=== PATIENT | female | born 1945 | race Caucasian/White ===

== ENCOUNTER 2019-09-27 10:33 | Outpatient (RCR) | payer MEDICARE, SELFPAY ==
[2019-09-27 14:01] LABS: Blood Urea Nitrogen 20 mg/dL (7-17); Calcium 9.5 mg/dL (8.4-10.2); Carbon Dioxide 28 mmol/L (22-30); Chloride 99 mmol/L (98-107); Estimated Glomerular Filt Rate > 60; Glucose 84 mg/dL (65-105); Potassium 4.1 mmol/L (3.4-5.0); Sodium 137 mmol/L (137-145)
[2019-09-27 14:15] LABS: Parathyroid Intact 55.1 pg/mL (7.5-53.5)
== END 2019-12-26 23:59 | disposition home or self-care (01) ==
LOC: ANHWCLAB 10:33
PROVIDERS: PCP Internal Medicine; Visit Provider Internal Medicine Endocrinology, Diabetes & Metabolism
DX: M81.0 Age-related osteoporosis without current pathological fracture (principal)
CPT/HCPCS: 36415; 80048; 83970

== ENCOUNTER 2019-12-05 17:10 | Emergency (ER) | payer MEDICARE, SELFPAY ==
--- NOTE | ~2019-12-05 | XR_ITS ---
XR forearm RT 2V 12/05/2019 17:40 Indication: Right arm pain after fall Procedure: 2 views right forearm Comparison: No prior studies for comparison. Findings: There are degenerative changes of the elbow and radiocarpal joint. There is chondrocalcinos is distal to the ulna. There are moderate degenerative changes of the first CMC joint. No acute fract ure or traumatic malalignment. Impression: 1: No acute fracture. 2: Polyarticular osteoarthritis. Reviewed, dictated and finalized at location A. ESSORI PARAPROFESSIONAL Impression: 1: No acute fracture. 2: Polyarticular osteoarthritis.
--- NOTE | ~2019-12-05 | XR_ITS ---
XR finger 5th RT min 2V 12/05/2019 17:40 Indication: Right fifth finger pain after fall Procedure: 4 views right fifth finger Comparison: 08/02/2012 Findings: No acute fracture or traumatic malalignment. No focal soft tissue abnormality. No radiopaqu e foreign bodies. There is a healed fifth metacarpal fracture. Impression: 1: No acute fracture. Reviewed, dictated and finalized at location A. THETIC DENTIST Impression: 1: No acute fracture.
--- NOTE | 2019-12-05 17:17 | ED.GENADULT ---
HPI - General Adult General Chief complaint: Extremity Injury, Upper Stated complaint: FALL/R ELBOW/WRIST/FINGER INJRUY Time Seen by Provider: 12/05/19 17:17 Source: patient and RN notes reviewed Mode of arrival: ambulatory Limitations: no limitations History of Present Illness HPI narrative: Pt is a 74 y/o female who presents to the with c/o 8/10 rt elbow pain, 5/10 rt wrist pain, and 6/10 rt 5th finger pain. Pt states that she fell on Monday (4 days ago). She also notes that she fell about 2 weeks ago. Pt is rt-handed. She tried to see her PCP, [Dr. Watson] . . She reports LLE bruising from her fall. Pt has to prop up her arm with a pillow at night because of the pain. She has a H/O osteoporosis. Pt denies LOC or any other injuries and she is not on any blood thinners. Patient advised regardless of x-ray results to get large, wrist splint MD complaint: Arm pain Onset (ago): day(s) (4) Location: right and upper extremity Severity scale (1-10): 8 Associated symptoms: denies other symptoms Related Data Home Medications Medication Instructions Recorded Confirmed aspirin 81 mg tablet,delayed 81 mg PO DAILY 09/23/19 12/05/19 release buspirone 10 mg tablet 10 mg PO BID 09/23/19 12/05/19 duloxetine 60 mg capsule,delayed 120 mg PO DAILY cap 09/23/19 12/05/19 release amlodipine 10 mg PO DAILY 12/05/19 12/05/19 Allergies Allergy/AdvReac Type Severity Reaction Status Date / Time codeine Allergy Unknown Hallucinati Verified 12/05/19 17:20 ng Review of Systems Review of Systems: Narrative: General/Constitutional: No weight loss,fever Eyes: N0: Redness,discharge Ears/Nose/Throat: No: Epistaxis,ear discharge Respiratory: Denies: Hemoptysis Gastrointestinal: No Vomiting, Bleeding-rectal Skin: No Lumps, eruption Neurologic: No Focal Weakness,Sz Hematologic: Denies: Petechiae/Purpura Psychiatric: No: Suicida ideationl All Other Systems: Reviewed and Negative [facility] Family History Family History (Updated 11/17/17 @ 11:24 by DOCTOR UNKNOWN) Sibling Diabetes mellitus Family history of mental disorder Family history of malignant neoplasm Grandparent Family history of osteoporosis Depression Family history of arthritis Family history of migraine headaches Father Family history of suicide Family history of alcoholism Mother Family history of migraine headaches, Onset Age: 34 Social History Social History Smoking status: Never smoker Second hand tobacco smoke exposure: No Alcohol intake: never Comments At time of signature, agree with nursing past medical, surgical, social and family history. There is no relevant family history pertinent to the presenting complaint Exam Narrative: Exam Narrative: General Appearance: Well appearing, Well nourished, No distress EYE: PERRLA, EOMI, Conjunctiva clear Ears: External ear normal, Auditory canal normal Nose: Normal nose, Nares clear Mouth/Throat: Normal appearing, Normal lips Neck: Supple Respiratory: Airway patent, No respiratory distress MS R forearm: Normal strength (mostly intact, limited flexion/extension by pain), Tenderness - FCCU, 5th MCPJ with mild decreased ROM, no swelling ; Other no anterior drawer, no collateral laxity, no scaphoid tenderness Skin: Warm, Dry, Normal color Neurological: A&O x3, Speech clear, CN II-XII intact Psychiatric: Normal mood, Normal affect Course Vital Signs Vital signs: Vital Signs Temperature 97.9 F 12/05/19 17:24 Pulse Rate 81 12/05/19 17:24 Respiratory Rate 16 12/05/19 17:24 Blood Pressure 175/94 H 12/05/19 17:24 Pulse Oximetry 99 12/05/19 17:24 Temperature 97.9 F 12/05/19 17:24 Pulse Rate 81 12/05/19 17:24 Respiratory Rate 16 12/05/19 17:24 Blood Pressure 175/94 H 12/05/19 17:24 Pulse Oximetry 99 12/05/19 17:24 Medical Decision Making Vital Signs Vital Signs: Vital Signs Temperature 97.9 F 12/05/19 17:24 Pulse Rate
[2019-12-05 17:24] VITALS: BP 175/94; PULSE 81; RESP 16; TEMP 36.6; O2SAT 99
== END 2019-12-05 18:16 | disposition home or self-care (01) ==
PROVIDERS: Emergency Provider Emergency Medicine; PCP Internal Medicine
DX: S69.91XA Unspecified injury of right wrist, hand and finger(s), initial encounter (principal); W19.XXXA Unspecified fall, initial encounter
CPT/HCPCS: 73090; 73140; 99213; G0463

== ENCOUNTER 2020-03-03 09:24 | Outpatient (CLI) | payer MEDICARE, SELFPAY ==
--- NOTE | ~2020-03-03 | NM_ITS ---
EXAMINATION: NM parathyroid w imaging DATE: 03/03/2020 13:37 INDICATION: Hyperparathyroidism, unspecified. TECHNIQUE: 19.4 mCi Tc99m sestamibi was administered intravenously. Anterior images of the neck were obtained immediately and at 2 hours. SPECT images of the neck were obtained. COMPARISON: None. FINDINGS: There is no focus of persistent activity in the area of the thyroid or mediastinum to sugge st parathyroid adenoma. IMPRESSION: 1. No evidence of a parathyroid adenoma. Reviewed, dictated and finalized at location A.
== END 2020-03-03 09:25 | disposition home or self-care (01) ==
LOC: ANHIMG 09:27
PROVIDERS: PCP Internal Medicine; Visit Provider Internal Medicine Endocrinology, Diabetes & Metabolism
DX: E21.3 Hyperparathyroidism, unspecified (principal)
CPT/HCPCS: 78070; A9500

== ENCOUNTER 2020-03-13 13:36 | Outpatient (CLI) | payer MEDICARE, SELFPAY ==
[2020-03-13 14:33] LABS: Albumin Level 4.6 g/dL (3.5-5.1); Blood Urea Nitrogen 18 mg/dL (7-17); Calcium 9.9 mg/dL (8.4-10.2); Carbon Dioxide 29 mmol/L (22-30); Chloride 101 mmol/L (98-107); Estimated Glomerular Filt Rate > 60; Glucose 87 mg/dL (65-105); Phosphorus 4.2 mg/dL (2.5-4.5); Potassium 3.7 mmol/L (3.4-5.0); Sodium 138 mmol/L (137-145)
[2020-03-13 15:06] LABS: Total Volume 24 Hour Urine 1400 ml
[2020-03-13 15:27] LABS: Creatinine 24 Hour Urine 0.9 gm/24 (0.8-1.8); Creatinine Urine 67.3 mg/dL
[2020-03-13 16:03] LABS: Vitamin D 25 Hydroxy 35.2 ng/mL
[2020-03-17 20:59] LABS: Collagen Type I C-Telopeptide 151 pg/mL (***); Osteocalcin 17 ng/mL (8-32)
== END 2020-03-13 13:37 | disposition home or self-care (01) ==
PROVIDERS: PCP Internal Medicine; Visit Provider Internal Medicine Endocrinology, Diabetes & Metabolism
DX: E21.3 Hyperparathyroidism, unspecified (principal); M81.0 Age-related osteoporosis without current pathological fracture
CPT/HCPCS: 36415; 80069; 81050; 82306; 82340; 82523; 82570; 83937; 83970

== ENCOUNTER 2020-12-18 07:00 | Outpatient (CLI) | payer MEDICARE, SELFPAY ==
--- NOTE | ~2020-12-18 | MR_ITS ---
EXAMINATION: MR ankle LT wo con DATE: 12/18/2020 07:54 INDICATION: Anterior tibial syndrome. Synovitis. TECHNIQUE: Magnetic resonance imaging (MRI) of the left ankle was performed without intravenous contr ast. Sequences included sagittal, coronal, and axial proton-density weighted fast spin echo without a nd with fat saturation. COMPARISON: None. FINDINGS: Medial ankle ligaments: Deep and superficial deltoid ligaments as well as the spring ligament are normal. Lateral ankle ligaments: The anterior and posterior inferior tibiofibular ligaments are normal. The calcaneofibular and copy and print associate ior talofibular ligaments are normal. The anterior talofibular ligament appears attenuated without moon rrounding edema suggesting sequela of chronic sprain. Tendons: Minimal thickening and increased signal of the distal Achilles tendon consistent with mild tendinosis without discrete tear or peritendinitis. The peroneus longus tendon is normal. Tendinopathy and long itudinal split tearing of the peroneus brevis tendon with the peroneus longus tendon situated between the separate medial and lateral bundles of the peroneus brevis tendon at the level of the tip of the lateral malleolus. The extensor hallucis longus and extensor digitorum longus tendons are normal. Mo derate tendinopathy of the tibialis anterior tendon with full-thickness tear occurring approximately 2 cm from the insertion at the first metatarsal base. There is retraction of the proximal tendon with approximately 4 cm separation of the frayed proximal and distal tear margins and with small amount o f complex fluid consistent with hematoma within the intervening tendon sheath. The tibialis posterior , flexor digitorum longus and flexor hallucis longus tendons are normal. Plantar fascia: There is thickening and mild increased signal consistent with enthesopathy of the proximal plantar ap oneurosis with moderate sized enthesophyte at its calcaneal insertion. No discrete tear of the planta r aponeurosis or significant surrounding edema to suggest acute plantar fasciitis. Bones/other: Bone alignment is normal. Normal bone marrow signal throughout with no reactive edema, fracture or pa thologic marrow replacing process. Fluid: Physiologic amount fluid in the joint spaces. Mild subcutaneous edema anterior to the ankle. IMPRESSION: 1. Full-thickness tear and possible retraction of the distal left anterior tibial tendon. 2. Tendinopathy and longitudinal split tearing of the peroneus brevis tendon. 3. Moderate plantar enthesopathy without discrete tear or acute fasciitis. 4. Minimal distal Achilles tendinosis. Reviewed, dictated and finalized at location A. RHOUSE ELECTRICIAN IMPRESSION: 1. Full-thickness tear and possible retraction of the distal left anterior tibi al tendon. 2. Tendinopathy and longitudinal split tearing of the peroneus brevis tendon. 3. Moderate plantar enthesopathy without discrete tear or acute fasciitis. 4. Minimal distal Achilles tendinosis.
== END 2020-12-18 07:01 | disposition home or self-care (01) ==
PROVIDERS: Visit Provider Podiatrist Foot & Ankle Surgery
DX: M65.872 Other synovitis and tenosynovitis, left ankle and foot (principal); M77.32 Calcaneal spur, left foot
CPT/HCPCS: 73721

== ENCOUNTER 2021-03-16 09:50 | Outpatient (CLI) | payer MEDICARE, SELFPAY ==
[2021-03-16 10:26] LABS: Basophils Percent Auto 0.6 % (0.2-1.2); Eosinophils Absolute Auto 0.3 K/mm3 (0-0.3); Eosinophils Percent Auto 3.9 % (0-4.4); Hematocrit 45.1 % (37.0-47.0); Hemoglobin 14.5 g/dL (12.0-15.0); Immature Granulocyte Absolute 0.01 K/mm3 (0.00-0.031); Immature Granulocyte Percent A 0.2 % (0-0.5); Lymphocytes Absolute Auto 1.14 K/mm3 (0.9-3.2); Lymphocytes Percent Auto 17.9 % (18.3-44.2); Mean Corpuscular HGB Conc 32.2 g/dl (32-36); Mean Corpuscular Hemoglobin 28.2 pg (26-34); Mean Corpuscular Volume 87.6 fl (80-100); Mean Platelet Volume 10.6 fl (7.4-10.4); Monocytes Absolute Auto 0.6 K/mm3 (0.1-0.6); Monocytes Percent Auto 9.4 % (2.6-8.5); Neutrophils Absolute Auto 4.3 K/mm3 (1.3-6.7); Platelet Count Result 247 k/mm3 (150-375); Red Blood Count 5.15 M/mm3 (4.2-5.4); Red Cell Distribution Width 13.2 % (11.5-14.5); White Blood Count 6.4 K/mm3 (4.5-10.0)
[2021-03-16 10:39] LABS: Alanine Aminotransferase 12 U/L (4-35); Albumin Level 4.3 g/dL (3.5-5.1); Alkaline Phosphatase 77 U/L (38-126); Anion Gap 2 mmol/L (8-16); Aspartate Amino Transferase 20 U/L (14-36); Bilirubin,Total 0.5 mg/dL (0.2-1.3); Blood Urea Nitrogen 22 mg/dL (7-17); Calcium 9.1 mg/dL (8.4-10.2); Carbon Dioxide 36 mmol/L (22-30); Chloride 102 mmol/L (98-107); Cholesterol 163 mg/dL (0-200); Estimated Glomerular Filt Rate > 60; Glucose 97 mg/dL (65-105); HDL Direct 70 mg/dL; Potassium 3.8 mmol/L (3.4-5.0); Sodium 140 mmol/L (137-145); Triglycerides 86 mg/dL (<150)
[2021-03-16 10:50] LABS: LDL Cholesterol Direct 70 mg/dL
[2021-03-16 11:07] LABS: Creatinine Urine 104.1 mg/dL
[2021-03-16 11:12] LABS: MALB Creatinine Ratio 61.8 mg/g (0-30); Microalbumin Urine Random 64.3 mg/L (0-16.7)
[2021-03-16 11:24] LABS: Vitamin D 25 Hydroxy 38.1 ng/mL
[2021-03-16 12:03] LABS: Folic Acid > 20.0 ng/mL (2.76->20)
== END 2021-03-16 09:51 | disposition home or self-care (01) ==
PROVIDERS: PCP Internal Medicine; Referring Provider Internal Medicine Endocrinology, Diabetes & Metabolism; Visit Provider Internal Medicine
DX: E55.9 Vitamin D deficiency, unspecified (principal); F33.40 Major depressive disorder, recurrent, in remission, unspecified; I12.9 Hypertensive chronic kidney disease with stage 1 through stage 4 chronic kidney disease, or unspecified chronic kidney disease; K21.9 Gastro-esophageal reflux disease without esophagitis; M81.0 Age-related osteoporosis without current pathological fracture; N18.2 Chronic kidney disease, stage 2 (mild); E78.2 Mixed hyperlipidemia; E21.3 Hyperparathyroidism, unspecified
CPT/HCPCS: 36415; 80053; 80061; 82043; 82306; 82607; 82746; 84443; 85025

== ENCOUNTER 2021-06-08 09:00 | Outpatient (CLI) | payer MEDICARE, SELFPAY ==
[2021-06-08 09:36] LABS: Alanine Aminotransferase 16 U/L (4-35); Albumin Level 4.1 g/dL (3.5-5.1); Alkaline Phosphatase 83 U/L (38-126); Anion Gap 9 mmol/L (8-16); Aspartate Amino Transferase 19 U/L (14-36); Bilirubin,Total 0.4 mg/dL (0.2-1.3); Blood Urea Nitrogen 25 mg/dL (7-17); Calcium 9.1 mg/dL (8.4-10.2); Carbon Dioxide 30 mmol/L (22-30); Chloride 103 mmol/L (98-107); Estimated Glomerular Filt Rate > 60; Glucose 119 mg/dL (65-110); Potassium 3.5 mmol/L (3.4-5.0); Sodium 142 mmol/L (137-145)
== END 2021-06-08 09:01 | disposition home or self-care (01) ==
PROVIDERS: PCP Internal Medicine; Visit Provider Internal Medicine
DX: I10 Essential (primary) hypertension (principal)
CPT/HCPCS: 36415; 80053

== ENCOUNTER 2021-08-27 12:02 | Emergency (ER) | payer MEDICARE, SELFPAY ==
--- NOTE | 2021-08-27 12:08 | ED.EAR ---
HPI - Ear Problem General Chief complaint: Ear Stated complaint: EARACHE Time Seen by Provider: 08/27/21 12:08 Source: patient Mode of arrival: ambulatory Limitations: no limitations History of Present Illness HPI Narrative: Yoli Valdez is a 76 yo female with a PMH of hypertension, depression, GERD, who comes to [facility] with complaints of right ear pain for the last few weeks. She states that she went to an ENT who removed some wax but she will not go back to him because she did not like him. Complaining of some dizziness and also difficulty hearing out of the ear Related Data Home Medications Medication Instructions Recorded Confirmed aspirin 81 mg tablet,delayed 81 mg PO DAILY 09/23/19 08/27/21 release bupropion HCl 100 mg tablet,12 hr 100 mg PO DAILY 03/10/20 08/27/21 sustained-release buspirone 10 mg tablet 10 mg PO BID tablet 03/16/21 08/27/21 duloxetine 60 mg capsule,delayed 120 mg PO DAILY cap 03/16/21 08/27/21 release Allergies Allergy/AdvReac Type Severity Reaction Status Date / Time codeine Allergy Unknown Hallucinati Verified 08/27/21 12:18 ng Review of Systems Review of Systems: CONSTITUTIONAL: Denies fever, chills, sweats. EYES: Denies visual changes, redness, discharge. ENT: Denies rhinorrhea, congestion, sore throat, right otalgia. CARDIOVASCULAR: Denies chest pain, palpitations, edema. RESPIRATORY: Denies dyspnea, wheezing, cough GASTROINTESTINAL: Denies abdominal pain, nausea, vomiting, diarrhea. GENITOURINARY: Denies dysuria, hematuria, abnormal discharge SKIN: Denies rash or itching. NEUROLOGIC: Denies numbness, or focal weakness. PSYCHIATRIC: Denies anxiety or depression. [facility] Past Medical History Medical History Anxiety Arthritis Cholecystectomy planned Hepatitis Liver disease Migraines Osteoporosis Psychiatric care Surgical History Surgical History H/O: hysterectomy History of knee replacement Family History Family History Sibling Diabetes mellitus Family history of mental disorder Family history of malignant neoplasm Grandparent Family history of osteoporosis Depression Family history of arthritis Family history of migraine headaches Father Family history of suicide Family history of alcoholism Mother Family history of migraine headaches, Onset Age: 34 Social History Social History Second hand tobacco smoke exposure: No Alcohol intake: never Substance use: never Comments At time of signature, I agree with nursing past medical, surgical, social and family history. There is no relevant family history pertinent to the presenting complaint. Exam Narrative: GENERAL: This is a well-nourished, well-developed patient, in mild distress. HEAD: normocephalic, atraumatic. EYES: Sclera clear/white. Vision is grossly intact. EARS: External ears normal, auditory canals clear on left, erythema with swelling on right and with drainage, TMs normal without perforation. Hearing grossly intact. NOSE: External nose normal without nasal discharge, nares without redness, no rhinorrhea. THROAT: Mucous membranes moist, NECK: Neck supple, CARDIOVASCULAR: Regular rate and rhythm without murmurs, gallops, or rubs. RESPIRATORY: Clear to auscultation. Breath sounds equal bilaterally. No wheezes, rales, or rhonchi. GASTROINTESTINAL: Abdomen soft, , SKIN: warm, intact with no suspicious lesions or rash, good texture and turgor. NEURO: awake, alert, and oriented to person, place and time. There were no obvious focal neurologic abnormalities. Steady gait EXTREMITIES: Normal range of motion. BACK: Nontender without deformity Course Course Emergency Course: Patient comes with right ear pain that has been present for the last
[2021-08-27 12:10] VITALS: BP 112/57; PULSE 61; RESP 16; TEMP 36.3; O2SAT 99
== END 2021-08-27 12:25 | disposition home or self-care (01) ==
PROVIDERS: Emergency Provider Nurse Practitioner; PCP Internal Medicine
DX: H66.001 Acute suppurative otitis media without spontaneous rupture of ear drum, right ear (principal); M19.90 Unspecified osteoarthritis, unspecified site; M81.0 Age-related osteoporosis without current pathological fracture; F41.9 Anxiety disorder, unspecified; Z96.659 Presence of unspecified artificial knee joint; K21.9 Gastro-esophageal reflux disease without esophagitis
CPT/HCPCS: 99213; G0463

== ENCOUNTER 2021-09-21 11:09 | Outpatient (CLI) | payer MEDICARE, SELFPAY ==
[2021-09-21 12:11] LABS: Anion Gap 10 mmol/L (8-16); Blood Urea Nitrogen 20 mg/dL (7-17); Calcium 9.2 mg/dL (8.4-10.2); Carbon Dioxide 27 mmol/L (22-30); Chloride 100 mmol/L (98-107); Estimated Glomerular Filt Rate > 60; Glucose 104 mg/dL (65-110); Potassium 3.8 mmol/L (3.4-5.0); Sodium 137 mmol/L (137-145)
== END 2021-09-21 11:10 | disposition home or self-care (01) ==
LOC: ANHLAB 11:13
PROVIDERS: PCP Internal Medicine; Visit Provider Internal Medicine
DX: I15.9 Secondary hypertension, unspecified (principal)
CPT/HCPCS: 36415; 80048

== ENCOUNTER 2021-11-29 01:46 | Day surgery (SDC) | payer MEDICARE, SELFPAY ==
[2021-11-17 15:11] VITALS: BMI 26.8
--- NOTE | 2021-11-26 13:03 | PM.HPGS ---
History of Present Illness History of Present Illness Consent: Risks, benefits, and alternatives have been discussed and questions answered. Patient agrees to proceed with procedure. Chief complaint: dysphagia Narrative: Yoli Valdez is a 76 year old female With dysphagia for solid food. Review of Systems Review of Systems: All systems reviewed & are unremarkable except as noted in HPI and below PMFSH Past Medical History Medical History Anxiety Arthritis Cholecystectomy planned Hepatitis Liver disease Migraines Osteoporosis Psychiatric care Surgical History Surgical History H/O: hysterectomy History of knee replacement Family History Family History Sibling Diabetes mellitus Family history of mental disorder Family history of malignant neoplasm Grandparent Family history of osteoporosis Depression Family history of arthritis Family history of migraine headaches Father Family history of suicide Family history of alcoholism Mother Family history of migraine headaches, Onset Age: 34 Social History Social History Smoking status: Never smoker Second hand tobacco smoke exposure: No Alcohol intake: never Substance use: never Substance use type: does not use Living arrangements: with family Additional living arrangements comments: granddaughter lives with her Spiritual care concerns: No Meds Home Medications and Allergies Home Medications Medication Instructions Recorded Confirmed Type aspirin 81 mg tablet,delayed 81 mg PO DAILY 09/23/19 11/29/21 History release bupropion HCl 100 mg tablet,12 hr 100 mg PO DAILY 03/10/20 11/29/21 History sustained-release calcium carbonate 500 mg-vitamin 1 tablet PO BID #180 tablet 03/10/20 11/29/21 Rx D3 15 mcg (600 unit) tablet buspirone 10 mg tablet 10 mg PO BID tablet 03/16/21 11/29/21 History duloxetine 60 mg capsule,delayed 120 mg PO DAILY cap 03/16/21 11/29/21 History release omeprazole 40 mg capsule,delayed 40 mg PO DAILY #90 cap 05/28/21 11/29/21 Rx release lisinopril 40 mg tablet See Rx Instructions .ROUTE 07/14/21 11/29/21 Rx .COMPLEX #90 tablet amlodipine 10 mg tablet 10 mg PO DAILY #90 tablet 08/12/21 11/29/21 Rx metoprolol succinate 50 mg 50 mg PO DAILY #90 tablet 08/12/21 11/29/21 Rx tablet,extended release 24 hr docusate sodium 50 mg capsule 50 mg PO DAILY 09/07/21 11/29/21 History multivitamin 1 tablet PO DAILY 09/07/21 11/29/21 History Allergies Allergy/AdvReac Type Severity Reaction Status Date / Time codeine Allergy Unknown Hallucinati Verified 11/29/21 07:40 ng Exam Resp: Auscultation: clear to auscultation bilaterally Cardio: Rate: regular rate Rhythm: regular rhythm GI: GI Palp: Yes Soft to palpation and No Tenderness to palpation present (GI) Assessment and Plan Assessment and plan (1) Dysphagia: Qualifiers: Dysphagia type: unspecified Qualified Code(s): R13.10 - Dysphagia, unspecified Code(s): R13.10 - Dysphagia, unspecified Status: Acute Assessment and Plan: EGD with possible biopsy or dilatation or cautery.
[2021-11-29 07:41] VITALS: BP 150/87; PULSE 67; RESP 18; TEMP 36.1; O2SAT 98; BMI 27.3
[2021-11-29] MEDS: LACTATED RINGERS 1,000 ML 150 ML IV CONT (07:43)
--- NOTE | 2021-11-29 07:55 | WPDANESEPPF ---
Anes - Initial Pre Proc Eval Procedure: Operation Date: 11/29/21 08:30 Proposed Procedures p Esophagogastroduodenoscopy - Gerry Bocanegra MD Date/Time: 11/29/21 07:55 Surgeon: Gerry Bocanegra MD Pre Op Diagnosis: dysphagia Patient Data Age: 76 Gender: F Height: 1.57 m Weight: 67.8 kg Last Vital Signs Temp 36.1 C L 11/29/21 07:41 Pulse 67 11/29/21 07:41 Resp 18 11/29/21 07:41 BP 150/87 H 11/29/21 07:41 Pulse Ox 98 11/29/21 07:41 Allergies Allergy/AdvReac Type Severity Reaction Status Date / Time codeine Allergy Unknown Hallucinati Verified 11/29/21 07:40 ng Home Medications Medication Instructions Recorded Confirmed Type aspirin 81 mg tablet,delayed 81 mg PO DAILY 09/23/19 11/29/21 History release bupropion HCl 100 mg tablet,12 hr 100 mg PO DAILY 03/10/20 11/29/21 History sustained-release calcium carbonate 500 mg-vitamin 1 tablet PO BID #180 tablet 03/10/20 11/29/21 Rx D3 15 mcg (600 unit) tablet buspirone 10 mg tablet 10 mg PO BID tablet 03/16/21 11/29/21 History duloxetine 60 mg capsule,delayed 120 mg PO DAILY cap 03/16/21 11/29/21 History release omeprazole 40 mg capsule,delayed 40 mg PO DAILY #90 cap 05/28/21 11/29/21 Rx release lisinopril 40 mg tablet See Rx Instructions .ROUTE 07/14/21 11/29/21 Rx .COMPLEX #90 tablet amlodipine 10 mg tablet 10 mg PO DAILY #90 tablet 08/12/21 11/29/21 Rx metoprolol succinate 50 mg 50 mg PO DAILY #90 tablet 08/12/21 11/29/21 Rx tablet,extended release 24 hr docusate sodium 50 mg capsule 50 mg PO DAILY 09/07/21 11/29/21 History multivitamin 1 tablet PO DAILY 09/07/21 11/29/21 History Patient hx anesthesia problems: none Family hx anesthesia problems: none Results Review: All pre-operative results and documents have been reviewed as part of the pre-operative evaluation. [facility] Past Medical History Medical History Anxiety Arthritis Cholecystectomy planned Hepatitis Liver disease Migraines Osteoporosis Psychiatric care Surgical History Surgical History H/O: hysterectomy History of knee replacement Family History Family History Sibling Diabetes mellitus Family history of mental disorder Family history of malignant neoplasm Grandparent Family history of osteoporosis Depression Family history of arthritis Family history of migraine headaches Father Family history of suicide Family history of alcoholism Mother Family history of migraine headaches, Onset Age: 34 Social History Social History Smoking status: Never smoker Second hand tobacco smoke exposure: No Alcohol intake: never Substance use: never Substance use type: does not use Living arrangements: with family Additional living arrangements comments: granddaughter lives with her Spiritual care concerns: No Anes - Eval Final PreProcedure Day of Procedure 11/29/21 07:55 Patient weight: overweight Heart: regular rate and rhythm Lungs: clear to auscultation Airway: Mallampati scale class II Neurological: alert and oriented Last oral intake: >/= 8 hours ASA classification: III Emergent: no Anesthetic plan: proceed Anesthesia type and monitoring: general GIVS and standard monitoring Results Review: All pre-operative results and documents have been reviewed as part of the pre-operative evaluation. Informed Consent: The patient's anesthetic plan and its attendant risks and benefits were discussed with the patient/family/POA. Questions were solicited and answers provided to the satisfaction of the patient/family/POA.
[2021-11-29 08:38] VITALS: BP 155/96; PULSE 69; RESP 23; O2SAT 100
[2021-11-29 08:48] VITALS: BP 146/97; PULSE 62; RESP 21; O2SAT 100
[2021-11-29 08:58] VITALS: BP 121/84; PULSE 62; RESP 20; O2SAT 100
== END 2021-11-29 09:16 | disposition home or self-care (01) ==
PROVIDERS: PCP Internal Medicine; Visit Provider Internal Medicine Gastroenterology
PROC: 0DJ08ZZ Inspection of Upper Intestinal Tract, Via Natural or Artificial Opening Endoscopic (ICD-10-PCS; CPT 43235; principal; 2021-11-29 08:30)
DX: R13.19 Other dysphagia (principal); K20.90 Esophagitis, unspecified without bleeding; K22.2 Esophageal obstruction; K44.9 Diaphragmatic hernia without obstruction or gangrene; Z79.82 Long term (current) use of aspirin; F41.9 Anxiety disorder, unspecified; M19.90 Unspecified osteoarthritis, unspecified site; M81.0 Age-related osteoporosis without current pathological fracture; K75.9 Inflammatory liver disease, unspecified
CPT/HCPCS: 43239; 43249; 87081; 88305; 88313; C1726; J2704; J7120

== ENCOUNTER 2022-01-05 17:10 | Emergency (ER) | payer MEDICARE, SELFPAY ==
[2022-01-05] VITALS (9 sets, daily range): BP systolic 103–150; BP diastolic 48–94; PULSE 74–87; RESP 16–24; TEMP 36.6; O2SAT 98–100
--- NOTE | ~2022-01-05 | CT_ITS ---
EXAMINATION: CT abdomen pelvis w con DATE: 01/05/2022 18:54 INDICATION: Abdominal pain and vomiting. Diarrhea. TECHNIQUE: Computed tomography (CT) of the abdomen and pelvis was performed with 100 cc Omnipaque 350 intravenous contrast. The dose-length product was 377.11 mGy-cm. Automated exposure control and iter ative reconstruction technique were employed. COMPARISON: CT dated 11/23/2017 FINDINGS: There is right lower lobe atelectasis. Heart size normal. No significant pleural or pericar dial effusion. There are cholecystectomy clips. The liver, spleen, pancreas, adrenal glands and left kidney are unremarkable. There is an 8 mm nonobstructing right renal stone. There is an anastomosis o f the sigmoid colon consistent with partial colon resection. Moderate colonic fecal loading. Nonobstr uctive bowel pattern. No significant vascular abnormality. There is tiny fat-containing umbilical her raman. There is moderate lumbar spondylosis with grade 1 spondylolisthesis secondary to facet hypertrop hy at L4-5 and L5-S1. There is levoscoliosis. IMPRESSION: 1. No acute abdominal abnormality. 2: Nonobstructing right nephrolithiasis. Reviewed, dictated and finalized at location A. ONAL BANKING ASSISTANT
--- NOTE | 2022-01-05 17:18 | ECG_ITS ---
Measurements Intervals [place] Rate: 89 P: 51 OR: 144 QRS: -50 QRSD: 96 T: 58 QT: 347 QTc: 424 Interpretive Statements SINUS RHYTHM LEFT ANTERIOR FASCICULAR BLOCK [QRS AXIS <= -45, QR IN I, RS IN II] POSSIBLE ANTERIOR MYOCARDIAL INFARCTION , PROBABLY OLD [30 ms Q WAVE IN V3/V4, OR R < 0.2 mV IN V4] NONSPECIFIC T-WAVE ABNORMALITY ABNORMAL ECG NO PREVIOUS ECG AVAILABLE FOR COMPARISON Electronically Signed On 01-06-2022 9:42:17 MEMBERSHIP DIRECTOR by Pj Mullins M.D.
--- NOTE | 2022-01-05 17:21 | ED.ABDPAIN ---
HPI - Abdominal Pain General Chief Complaint: Abdominal Pain Stated Complaint: SWEATING, DIZZY, NAUSEA, ABD CRAMPS Time Seen by Provider: 01/05/22 17:13 History of Present Illness HPI narrative: 76-year-old female presents to the emergency room complaints of abdominal pain for 4 weeks. Patient states the pain is progressively gotten worse, is associated with intermittent episodes of diarrhea and constipation. Patient states that she has been evaluated by GI 2 weeks ago, where endoscopy was performed. Patient states endoscopy showed no acute findings. Patient has a history of cholecystectomy, appendectomy, hysterectomy, and mesh status post hernia repair. Abdominal pain is accompanied with nausea, vomiting for the past 2 days, sweating, and a headache. Related Data Home Medications Medication Instructions Recorded Confirmed aspirin 81 mg tablet,delayed 81 mg PO DAILY 09/23/19 11/29/21 release bupropion HCl 100 mg tablet,12 hr 100 mg PO DAILY 03/10/20 11/29/21 sustained-release buspirone 10 mg tablet 10 mg PO BID tablet 03/16/21 11/29/21 duloxetine 60 mg capsule,delayed 120 mg PO DAILY cap 03/16/21 11/29/21 release docusate sodium 50 mg capsule 50 mg PO DAILY 09/07/21 11/29/21 multivitamin 1 tablet PO DAILY 09/07/21 11/29/21 Allergies Allergy/AdvReac Type Severity Reaction Status Date / Time codeine AdvReac Unknown Hallucinati Verified 01/05/22 17:22 ng Review of Systems Review of Systems: CONSTITUTIONAL: Denies fever, chills reports diaphoresis. EYES: Denies visual changes, redness, or discharge. ENT: Denies rhinorrhea, congestion, sore throat, or otalgia. CARDIOVASCULAR: Denies chest pain, palpitations, or edema. RESPIRATORY: Denies cough or dyspnea. GASTROINTESTINAL: Reports abdominal pain, nausea, vomiting. reports intermittent episodes of constipation and diarrhea. GENITOURINARY: Denies dysuria or hematuria. SKIN: Denies rash or itching. MUSCULOSKELETAL: Denies back pain, joint pain, or myalgia. NEUROLOGIC: Denies headache, numbness, dizziness, or weakness. PSYCHIATRIC: Denies anxiety or depression. [facility] Past Medical History Medical History Anxiety Arthritis Cholecystectomy planned Hepatitis Liver disease Migraines Osteoporosis Psychiatric care Surgical History Surgical History H/O: hysterectomy History of knee replacement Family History Family History Sibling Diabetes mellitus Family history of mental disorder Family history of malignant neoplasm Grandparent Family history of osteoporosis Depression Family history of arthritis Family history of migraine headaches Father Family history of suicide Family history of alcoholism Mother Family history of migraine headaches, Onset Age: 34 Social History Social History Smoking status: Never smoker Second hand tobacco smoke exposure: No Alcohol intake: never Substance use: never Substance use type: does not use Additional living arrangements comments: granddaughter lives with her Spiritual care concerns: No Exam Narrative: GENERAL: Well-appearing, well-nourished, and in no acute distress. HEAD: Normocephalic, atraumatic. EYES: PERRLA and EOMI. ENT: Nares clear, no rhinorrhea or epistaxis. Mucous membranes moist. NECK: Supple. No adenopathy or masses. No carotid bruits or JVD CHEST: Clear to auscultation. No respiratory distress. No wheezes rales or rhonchi HEART: Regular rate and rhythm. No murmur heard. Normal peripheral pulses. ABDOMEN: Soft, right lower quadrant tenderness, nondistended, hypo-active bowel sounds. EXTREMITIES: Normal range of motion. No edema. SKIN: Warm, dry, no rash. NEURO: No focal deficits. Alert and oriented x3. PSYCH: Normal mood and affect.
[2022-01-05] MEDS: SODIUM CHLORIDE 0.9% IV 500 ML 250 ML IV CONT (17:43)
[2022-01-05] MEDS: ONDANSETRON INJ 4 MG/2 ML VIAL IV PUSH (17:43)
[2022-01-05 17:44] LABS: Basophils Absolute Auto 0.1 K/mm3 (0.0-0.1); Basophils Percent Auto 0.7 % (0.2-1.2); Eosinophils Absolute Auto 0.2 K/mm3 (0-0.3); Hematocrit 46.1 % (37.0-47.0); Immature Granulocyte Absolute 0.01 K/mm3 (0.00-0.031); Immature Granulocyte Percent A 0.1 % (0-0.5); Lymphocytes Absolute Auto 1.95 K/mm3 (0.9-3.2); Lymphocytes Percent Auto 25.5 % (18.3-44.2); Mean Corpuscular HGB Conc 32.5 g/dl (32-36); Mean Corpuscular Hemoglobin 29.2 pg (26-34); Mean Corpuscular Volume 89.7 fl (80-100); Mean Platelet Volume 10.2 fl (7.4-10.4); Monocytes Absolute Auto 0.9 K/mm3 (0.1-0.6); Neutrophils Absolute Auto 4.6 K/mm3 (1.3-6.7); Neutrophils Percent Auto 59.7 % (45.5-73.1); Platelet Count Result 317 k/mm3 (150-375); Red Blood Count 5.14 M/mm3 (4.2-5.4); White Blood Count 7.6 K/mm3 (4.5-10.0)
[2022-01-05 17:57] LABS: Prothrombin Time 12.5 Seconds (11.1-14.7)
[2022-01-05 17:58] LABS: Partial Thromboplastin Time 34.2 SECONDS (22.3-36.8)
[2022-01-05 18:21] LABS: Alanine Aminotransferase 23 U/L (4-35); Albumin Level 4.7 g/dL (3.5-5.1); Alkaline Phosphatase 65 U/L (38-126); Anion Gap 7 mmol/L (8-16); Aspartate Amino Transferase 29 U/L (14-36); Bilirubin,Total 0.4 mg/dL (0.2-1.3); Blood Urea Nitrogen 25 mg/dL (7-17); Calcium 9.1 mg/dL (8.4-10.2); Carbon Dioxide 30 mmol/L (22-30); Chloride 101 mmol/L (98-107); Estimated CRCL calculation 38 ml/min; Estimated Glomerular Filt Rate 54; Glucose 104 mg/dL (65-110); Lipase 95 U/L (23-300); Potassium 4.3 mmol/L (3.4-5.0); Sodium 138 mmol/L (137-145)
[2022-01-05 19:02] LABS: Add Urine Microscopic? YES; Appearance Urine Clear (Clear); Bacteria Urine Trace /hpf; Bilirubin Urine Negative (Negative); Blood Urine Negative (Negative); Color Urine Straw (Yellow); Glucose Urine UA Negative (Negative); Ketones Urine Negative (Negative); Leukocyte Esterase Ur 2+ LEU/UL (Negative); Mucus Urine Rare /lpf; Nitrate Urine Negative (Negative); Protein Urine Negative (Negative); RBC Urine 0-2 /hpf (0-2); Squamous Epithelial Cell Urine Rare /hpf (Few); Urobilinogen Urine Negative mg/dL (<2.0)
[2022-01-05] MEDS: KETOROLAC 30 MG/ML VIAL (*BKC) IV PUSH (19:11)
== END 2022-01-05 20:28 | disposition home or self-care (01) ==
PROVIDERS: Emergency Provider Nurse Practitioner Family; PCP Internal Medicine
DX: K52.9 Noninfective gastroenteritis and colitis, unspecified (principal); R10.84 Generalized abdominal pain; K76.9 Liver disease, unspecified; F41.9 Anxiety disorder, unspecified; M81.0 Age-related osteoporosis without current pathological fracture; M19.90 Unspecified osteoarthritis, unspecified site; Z79.82 Long term (current) use of aspirin; I44.4 Left anterior fascicular block; R94.31 Abnormal electrocardiogram [ECG] [EKG]
CPT/HCPCS: 36415; 74177; 80053; 81001; 83690; 85025; 85610; 85730; 87077; 87086; 87186; 93005; 96361; 96374; 96375; 99284; J1885; J2405; J7040; Q9967

== ENCOUNTER 2022-02-03 01:03 | Day surgery (SDC) | payer MEDICARE, SELFPAY ==
[2022-01-20 13:34] VITALS: BMI 26.2
[2022-02-03 06:56] VITALS: BP 133/84; PULSE 72; RESP 19; TEMP 36.3; O2SAT 100; BMI 27.0
[2022-02-03] MEDS: LACTATED RINGERS 1,000 ML 150 ML IV CONT (06:58)
--- NOTE | 2022-02-03 07:11 | PM.HPGS ---
History of Present Illness History of Present Illness Consent: Risks, benefits, and alternatives have been discussed and questions answered. Patient agrees to proceed with procedure. Chief complaint: esophageal stricture, dysphagia Narrative: Yoli Valdez is a 76 year old female who was found have a tight esophageal stricture 2 months ago. She underwent esophageal dilatation up to 18 mm. Based on the appearance and her symptoms I suspect that she would need further dilatation. Today she states that although she is better, she still has food hanging up from time to time, such as her shredded wheat cereal. She is taking her omeprazole daily. Review of Systems Review of Systems: All systems reviewed & are unremarkable except as noted in HPI and below PMFSH Past Medical History Medical History Anxiety Arthritis Cholecystectomy planned Hepatitis Liver disease Migraines Osteoporosis Psychiatric care Surgical History Surgical History H/O: hysterectomy History of knee replacement Family History Family History Sibling Diabetes mellitus Family history of mental disorder Family history of malignant neoplasm Grandparent Family history of osteoporosis Depression Family history of arthritis Family history of migraine headaches Father Family history of suicide Family history of alcoholism Mother Family history of migraine headaches, Onset Age: 34 Social History Social History Smoking status: Never smoker Second hand tobacco smoke exposure: No Alcohol intake: never Substance use: never Substance use type: does not use Additional living arrangements comments: granddaughter lives with her Spiritual care concerns: No Meds Home Medications and Allergies Home Medications Medication Instructions Recorded Confirmed Type aspirin 81 mg tablet,delayed 81 mg PO DAILY 09/23/19 02/03/22 History release bupropion HCl 100 mg tablet,12 hr 100 mg PO DAILY 03/10/20 02/03/22 History sustained-release calcium carbonate 500 mg-vitamin 1 tablet PO BID #180 tablet 03/10/20 02/03/22 Rx D3 15 mcg (600 unit) tablet buspirone 10 mg tablet 10 mg PO BID tablet 03/16/21 02/03/22 History duloxetine 60 mg capsule,delayed 120 mg PO DAILY cap 03/16/21 02/03/22 History release metoprolol succinate 50 mg 50 mg PO DAILY #90 tablet 08/12/21 02/03/22 Rx tablet,extended release 24 hr docusate sodium 50 mg capsule 50 mg PO DAILY 09/07/21 02/03/22 History multivitamin 1 tablet PO DAILY 09/07/21 02/03/22 History omeprazole 40 mg capsule,delayed 40 mg PO DAILY #90 cap 11/30/21 02/03/22 Rx release lisinopril 40 mg tablet See Rx Instructions .ROUTE 12/02/21 02/03/22 Rx .COMPLEX #90 tablet fluconazole 100 mg tablet 100 mg PO DAILY #30 tablet 12/03/21 02/03/22 Rx amlodipine 10 mg tablet 10 mg PO DAILY #90 tablet 12/20/21 02/03/22 Rx dicyclomine 10 mg PO BID #10 cap 01/05/22 02/03/22 Rx Allergies Allergy/AdvReac Type Severity Reaction Status Date / Time codeine AdvReac Unknown Hallucinati Verified 02/03/22 06:54 ng Vital Signs Vital Signs - 24 hr 02/03/22 06:56 Temperature 36.3 C L Pulse Rate 72 Respiratory Rate 19 Blood Pressure 133/84 Pulse Oximetry 100 Exam Resp: Auscultation: clear to auscultation bilaterally Cardio: Rate: regular rate Rhythm: regular rhythm GI: GI Palp: Yes Soft to palpation and No Tenderness to palpation present (GI) Assessment and Plan Assessment and plan (1) Dysphagia: Qualifiers: Dysphagia type: unspecified Qualified Code(s): R13.10 - Dysphagia, unspecified Code(s): R13.10 - Dysphagia, unspecified Status: Acute Assessment and Plan: EGD with possible biopsy or dilatation or cautery.
--- NOTE | 2022-02-03 07:55 | WPDANESEPPF ---
Anes - Initial Pre Proc Eval Procedure: Operation Date: 02/03/22 08:00 Proposed Procedures p Esophagogastroduodenoscopy - Gerry Bocanegra MD Date/Time: 02/03/22 07:55 Surgeon: Gerry Bocanegra MD Pre Op Diagnosis: esophageal stricture, dysphagia Patient Data Age: 76 Gender: F Height: 1.57 m Weight: 67 kg Last Vital Signs Temp 97.4 F L 02/03/22 06:56 Pulse 72 02/03/22 06:56 Resp 19 02/03/22 06:56 BP 133/84 02/03/22 06:56 Pulse Ox 100 02/03/22 06:56 Allergies Allergy/AdvReac Type Severity Reaction Status Date / Time codeine AdvReac Unknown Hallucinati Verified 02/03/22 06:54 ng Home Medications Medication Instructions Recorded Confirmed Type aspirin 81 mg tablet,delayed 81 mg PO DAILY 09/23/19 02/03/22 History release bupropion HCl 100 mg tablet,12 hr 100 mg PO DAILY 03/10/20 02/03/22 History sustained-release calcium carbonate 500 mg-vitamin 1 tablet PO BID #180 tablet 03/10/20 02/03/22 Rx D3 15 mcg (600 unit) tablet buspirone 10 mg tablet 10 mg PO BID tablet 03/16/21 02/03/22 History duloxetine 60 mg capsule,delayed 120 mg PO DAILY cap 03/16/21 02/03/22 History release metoprolol succinate 50 mg 50 mg PO DAILY #90 tablet 08/12/21 02/03/22 Rx tablet,extended release 24 hr docusate sodium 50 mg capsule 50 mg PO DAILY 09/07/21 02/03/22 History multivitamin 1 tablet PO DAILY 09/07/21 02/03/22 History omeprazole 40 mg capsule,delayed 40 mg PO DAILY #90 cap 11/30/21 02/03/22 Rx release lisinopril 40 mg tablet See Rx Instructions .ROUTE 12/02/21 02/03/22 Rx .COMPLEX #90 tablet fluconazole 100 mg tablet 100 mg PO DAILY #30 tablet 12/03/21 02/03/22 Rx amlodipine 10 mg tablet 10 mg PO DAILY #90 tablet 12/20/21 02/03/22 Rx dicyclomine 10 mg PO BID #10 cap 01/05/22 02/03/22 Rx Patient hx anesthesia problems: none Family hx anesthesia problems: none Results Review: All pre-operative results and documents have been reviewed as part of the pre-operative evaluation. [facility] Past Medical History Medical History Anxiety Arthritis Cholecystectomy planned Hepatitis Liver disease Migraines Osteoporosis Psychiatric care Surgical History Surgical History H/O: hysterectomy History of knee replacement Family History Family History Sibling Diabetes mellitus Family history of mental disorder Family history of malignant neoplasm Grandparent Family history of osteoporosis Depression Family history of arthritis Family history of migraine headaches Father Family history of suicide Family history of alcoholism Mother Family history of migraine headaches, Onset Age: 34 Social History Social History Smoking status: Never smoker Second hand tobacco smoke exposure: No Alcohol intake: never Substance use: never Substance use type: does not use Additional living arrangements comments: granddaughter lives with her Spiritual care concerns: No Anes - Eval Final PreProcedure Day of Procedure 02/03/22 07:55 Patient weight: normal Heart: regular rate and rhythm Lungs: clear to auscultation Airway: Mallampati scale class II Neurological: alert and oriented Last oral intake: >/= 8 hours ASA classification: III Emergent: no Anesthetic plan: proceed Anesthesia type and monitoring: general GIVS and standard monitoring Results Review: All pre-operative results and documents have been reviewed as part of the pre-operative evaluation. Informed Consent: The patient's anesthetic plan and its attendant risks and benefits were discussed with the patient/family/POA. Questions were solicited and answers provided to the satisfaction of the patient/family/POA.
[2022-02-03 08:10] VITALS: BP 117/74; PULSE 63; RESP 22; O2SAT 97
[2022-02-03 08:20] VITALS: BP 121/75; PULSE 60; RESP 15; O2SAT 99
[2022-02-03 08:30] VITALS: BP 130/84; PULSE 62; RESP 20; O2SAT 100
== END 2022-02-03 08:38 | disposition home or self-care (01) ==
PROVIDERS: PCP Internal Medicine; Visit Provider Internal Medicine Gastroenterology
PROC: 0DJ08ZZ Inspection of Upper Intestinal Tract, Via Natural or Artificial Opening Endoscopic (ICD-10-PCS; CPT 43235; principal; 2022-02-03 08:00)
DX: K22.2 Esophageal obstruction (principal); K76.9 Liver disease, unspecified; M81.0 Age-related osteoporosis without current pathological fracture; F41.9 Anxiety disorder, unspecified; Z79.82 Long term (current) use of aspirin
CPT/HCPCS: 43249; 88305; C1726; J2704; J7120

== ENCOUNTER 2022-07-16 17:26 | Emergency (ER) | payer MEDICARE, SELFPAY ==
--- NOTE | ~2022-07-16 | CT_ITS ---
EXAMINATION: CT abdomen pelvis w con DATE: 07/16/2022 18:30 INDICATION: epigastric pain, back pain TECHNIQUE: Computed tomography (CT) of the abdomen and pelvis was performed with 100 mL Omnipaque-350 intravenous contrast. Automated exposure control and iterative reconstruction technique were employe d. The dose-length product was 419.35 mGy-cm. COMPARISON: 01/05/2022. FINDINGS: Lower thorax: Chronic basilar scarring. Liver: Normal. Biliary/Gallbladder: Gallbladder is absent. No bile duct dilation. Pancreas: No mass or duct dilation. Spleen: Normal. Adrenals:No mass. Kidneys: Mild cortical thinning and scarring. Nonobstructive right lower pole calculus. No hydronephr osis. GI tract: Distal esophageal and gastric wall edema. Rectosigmoid anastomosis. Borderline dilation of anastomotic bowel, distended by from stool, unchanged No small or large bowel dilation. Appendix not visualized Mesentery/Peritoneum: No ascites, mass, or free air. Retroperitoneum: No mass. Pelvis: Uterus is not visualized, likely surgically absent. Decompressed urinary bladder. Soft Tissues: Uncomplicated fat-containing umbilical hernia, otherwise the soft tissues and body wall unremarkable. Bones: No acute osseous finding. IMPRESSION: Esophagitis/gastritis. No other acute abdominopelvic process detected Reviewed, dictated and finalized at location K.
[2022-07-16 17:28] VITALS: BP 101/61; PULSE 49; RESP 16; TEMP 36.4; O2SAT 100
--- NOTE | 2022-07-16 17:47 | ED.BACK ---
HPI - Back Pain/Injury General Chief Complaint: Back Pain/Injury Stated Complaint: back pain Time Seen by Provider: 07/16/22 17:37 History of Present Illness HPI Narrative: 76-year-old female here for evaluation of back pain. Patient states the pain woke her up from her sleep 2 nights ago. It is a severe pain that is mostly located in her mid thoracic region underneath her shoulder blades but also moves around other areas of her back and occasionally down her right leg. Pain is there all the time but is worse with positions. she has never had pain like this in the past. She attempted a Percocet without relief of her pain. Additionally reports nausea but no vomiting, no fevers, chills, weight changes, chest pain or shortness of breath. Related Data Home Medications Medication Instructions Recorded Confirmed aspirin 81 mg tablet,delayed 81 mg PO DAILY 09/23/19 07/15/22 release (Adult Low Dose Aspirin) buspirone 10 mg tablet 10 mg PO BID 03/16/21 07/15/22 duloxetine 60 mg capsule,delayed 120 mg PO DAILY 03/16/21 07/15/22 release (Cymbalta) docusate sodium 50 mg capsule 50 mg PO DAILY 09/07/21 07/15/22 (Stool Softener) multivitamin (Daily Multi-Vitamin 1 tablet PO DAILY 09/07/21 07/15/22 tablet) escitalopram oxalate 20 mg tablet 20 mg PO DAILY 04/22/22 07/15/22 Allergies Allergy/AdvReac Type Severity Reaction Status Date / Time codeine AdvReac Unknown Hallucinati Verified 07/15/22 07:38 ng Review of Systems Review of Systems: Gen: Denies fevers or chills Eyes: Denies eye pain or visual change ENT: Denies congestion Respiratory: Denies shortness of breath or cough CV: Denies chest pain or palpitations GI: Reports nausea. Denies abdominal pain, emesis or diarrhea : denies burning, urgency, frequency or hematuria Musculoskeletal: Reports back pain. Neuro: Denies numbness, tingling, weakness or focal weakness Skin: Denies rash Except as documented, all other systems reviewed and negative [facility] Past Medical History Medical History Anxiety Arthritis Cholecystectomy planned Hepatitis Liver disease Migraines Osteoporosis Psychiatric care Surgical History Surgical History H/O: hysterectomy History of knee replacement Family History Family History Sibling Diabetes mellitus Family history of mental disorder Family history of malignant neoplasm Grandparent Family history of osteoporosis Depression Family history of arthritis Family history of migraine headaches Father Family history of suicide Family history of alcoholism Mother Family history of migraine headaches, Onset Age: 34 Social History Social History Smoking status: Never smoker Second hand tobacco smoke exposure: No Alcohol intake: never Substance use: never Substance use type: does not use Additional living arrangements comments: granddaughter lives with her Spiritual care concerns: No Exam Narrative: APPEARANCE: Uncomfortable appearing. Head: Normocephalic and atraumatic. EYES: PERRLA/EOMI, conjunctivae clear NOSE: No nasal drainage EARS: External ear normal in appearance THROAT: Oropharynx is clear. Mucous membranes are moist. NECK: Supple. No adenopathy, no masses. RESPIRATORY: Airway patent, respirations nonlabored. Clear to auscultation bilaterally, no rales, rhonchi, wheezing. CARDIOVASCULAR: Regular rate and rhythm without murmurs, rubs, or gallops. ABDOMINAL: Tender in the epigastrium. Normoactive bowel sounds. Soft, nondistended. No rebound tenderness or guarding. MUSCULOSKELETAL: Tender to palpation in numerous regions of her back, most notably under her left scapula and in the middle of her thoracic spine. Straight leg raise positive on the rig
[2022-07-16] MEDS: ONDANSETRON INJ 4 MG/2 ML VIAL IV PUSH (17:58)
[2022-07-16 18:00] LABS: Basophils Absolute Auto 0.1 K/mm3 (0.0-0.1); Basophils Percent Auto 0.6 % (0.2-1.2); Eosinophils Absolute Auto 0.2 K/mm3 (0-0.3); Hematocrit 40.1 % (37.0-47.0); Hemoglobin 13.3 g/dL (12.0-15.0); Immature Granulocyte Absolute 0.02 K/mm3 (0.00-0.031); Immature Granulocyte Percent A 0.2 % (0-0.5); Lymphocytes Percent Auto 18.1 % (18.3-44.2); Mean Corpuscular HGB Conc 33.2 g/dl (32-36); Mean Corpuscular Hemoglobin 28.1 pg (26-34); Mean Corpuscular Volume 84.8 fl (80-100); Mean Platelet Volume 10.6 fl (7.4-10.4); Monocytes Percent Auto 10.1 % (2.6-8.5); Neutrophils Absolute Auto 6.5 K/mm3 (1.3-6.7); Platelet Count Result 300 k/mm3 (150-375); Red Blood Count 4.73 M/mm3 (4.2-5.4); Red Cell Distribution Width 12.3 % (11.5-14.5); White Blood Count 9.4 K/mm3 (4.5-10.0)
[2022-07-16 18:09] LABS: Alanine Aminotransferase 16 U/L (6-35); Albumin Level 4.4 g/dL (3.5-5.1); Alkaline Phosphatase 76 U/L (38-126); Anion Gap 15 mmol/L (8-16); Aspartate Amino Transferase 21 U/L (14-36); Bilirubin,Total 0.6 mg/dL (0.2-1.3); Blood Urea Nitrogen 39 mg/dL (7-17); Calcium 8.5 mg/dL (8.4-10.2); Carbon Dioxide 22 mmol/L (22-30); Chloride 100 mmol/L (98-107); Estimated CRCL calculation 23 ml/min; Estimated Glomerular Filt Rate 34; Glucose 123 mg/dL (65-110); Lipase 111 U/L (23-300); Sodium 137 mmol/L (137-145)
[2022-07-16] MEDS: SODIUM CHLORIDE 0.9% IV 1,000 ML 999 ML IV CONT ×2 (18:53→20:09)
[2022-07-16] MEDS: PANTOPRAZOLE SODIUM IV 40 MG VIAL IV PUSH (18:53)
[2022-07-16] MEDS: MORPHINE SULFATE (*CRX) 4 MG/ML INJ IV PUSH (18:53)
[2022-07-16 20:17] LABS: Appearance Urine Clear (Clear); Bilirubin Urine Negative (Negative); Blood Urine Negative (Negative); Glucose Urine UA Negative (Negative); Ketones Urine Negative (Negative); Leukocyte Esterase Ur Trace LEU/UL (Negative); Nitrate Urine Negative (Negative); Protein Urine Negative (Negative); Specific Grav Ur <= 1.005 (1.001-1.035); Urobilinogen Urine 0.2 mg/dL (<2.0)
[2022-07-16 20:19] VITALS: BP 100/61; PULSE 54; RESP 18; O2SAT 95
[2022-07-16 20:22] LABS: Bacteria Urine Trace /hpf; Mucus Urine Rare /lpf; RBC Urine 0-2 /hpf (0-2); Squamous Epithelial Cell Urine Rare /hpf (Few)
[2022-07-16 20:34] LABS: Add Urine Microscopic? YES; Color Urine Light Yellow (Yellow)
--- NOTE | 2022-07-16 20:44 | ECG_ITS ---
Measurements Intervals [place] Rate: 58 P: 60 AR: 181 QRS: -37 QRSD: 85 T: 64 QT: 423 QTc: 419 Interpretive Statements SINUS BRADYCARDIA ATRIAL PREMATURE COMPLEX LEFT AXIS DEVIATION NONSPECIFIC ST & T-WAVE ABNORMALITY- ANTEROLAT/HIGH LAT LEADS BORDERLINE ECG COMPARED TO ECG 01/05/2022 17:22:53 SINUS BRADYCARDIA NOW PRESENT Electronically Signed On 07-16-2022 21:39:39 CDT by Kurt Montgomery D.O.
[2022-07-16 21:44] LABS: Anion Gap 8 mmol/L (8-16); Blood Urea Nitrogen 36 mg/dL (7-17); Calcium 7.8 mg/dL (8.4-10.2); Carbon Dioxide 23 mmol/L (22-30); Chloride 107 mmol/L (98-107); Estimated CRCL calculation 26 ml/min; Estimated Glomerular Filt Rate 40; Glucose 96 mg/dL (65-110); Potassium 4.7 mmol/L (3.4-5.0); Sodium 138 mmol/L (137-145)
[2022-07-16 21:49] VITALS: BP 94/57; PULSE 53; RESP 18; O2SAT 95
== END 2022-07-16 22:05 | disposition home or self-care (01) ==
PROVIDERS: Physician Assistant; Emergency Provider Emergency Medicine; PCP Internal Medicine
DX: K29.70 Gastritis, unspecified, without bleeding (principal); M81.0 Age-related osteoporosis without current pathological fracture; F41.9 Anxiety disorder, unspecified; Z79.82 Long term (current) use of aspirin
CPT/HCPCS: 36415; 74177; 80048; 80053; 81001; 83690; 85025; 93005; 96361; 96374; 96375; 99284; C9113; J2270; J2405; J7030; Q9967

== ENCOUNTER 2022-10-10 08:05 | Outpatient (CLI) | payer MEDICARE, SELFPAY ==
--- NOTE | ~2022-10-10 | DEXA_ITS ---
Bone Density Report Name: DAR ESPINOSA Age: 77 Sex: Female Ethnicity: White Date of : 1945 Indication: postmenopausal; screening for osteoporosis; height loss; rheumatoid arthritis; Referring Provider: CALVIN LAMBERT Study: Bone densitometry was performed. Exam Date: October 10, 2022 Accession number: [id number] Bone Density: Region BMD T-score Z-score Classification AP Spine(L1-L4) 1.098 0.5 2.9 Normal Femoral Neck (Left) 0.587 -2.4 -0.2 Osteopenia Total Hip (Left) 0.731 -1.7 0.1 Osteopenia Femoral Neck (Right) 0.656 -1.7 0.4 Osteopenia Total Hip (Right) 0.796 -1.2 0.6 Osteopenia Total Hip Mean 0.763 -1.5 0.4 Osteopenia World Health Organization criteria for BMD impression classify patients as: Normal (T-score at or above -1.0), Osteopenia (T-score between -1.0 and -2.5), or Osteoporosis (T-score at or below -2.5). 10-year Fracture Risk: FRAX not reported because: Treated for osteoporosis Clinical Information Provided by Patient: Has rheumatoid arthritis Is being treated for osteoporosis Has used the following medications: Vitamin D, Calcium Patient maximum height was 63 No regular weight bearing exercise Onset of menses at age 13 Number of children 3 Impression: The patient has low bone mass, based on the Left Femoral Neck T-score. Discussion: It is important to ask patients whether they are taking their medications and to encourage continued and appropriate compliance with their osteoporosis therapies to reduce fracture risk. It is also important to review their risk factors and encourage appropriate calcium and vitamin D intakes, exercise, fall prevention and other lifestyle measures. Follow-Up: Consider a repeat BMD and Vertebral Fracture Assessment (VFA) exam in 2 years or sooner if medically necessary, to reassess this patient's status. Reported by: [facility] on 10/10/2022 8:34:00 AM. Reviewed, dictated and finalized at location AMaximo ADAMES
--- NOTE | ~2022-10-10 | MM_ITS ---
EXAMINATION: MM screening [facility] BI w sheree HISTORY: Screening mammogram TECHNIQUE: Craniocaudal and mediolateral oblique 3-D tomosynthesis images were obtained and synthetic 2-D images were generated. CAD analysis was submitted and interpreted. COMPARISON: 12/01/2018, 11/23/2017 BREAST PARENCHYMAL COMPOSITION: The breasts are heterogeneously dense, which may obscure small masses . FINDINGS: Scattered benign-appearing calcifications are present. No suspicious mass, calcification, o r architectural distortion are identified in either breast to suggest malignancy. There has been no s uspicious interval change. IMPRESSION: 1. No mammographic evidence of malignancy. 2. Recommend routine screening mammography in one year. BI-RADS Category 2: Benign finding(s). Reviewed, dictated and finalized at location A. 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
== END 2022-10-10 08:06 | disposition home or self-care (01) ==
PROVIDERS: PCP Internal Medicine; Visit Provider Nurse Practitioner
DX: Z12.31 Encounter for screening mammogram for malignant neoplasm of breast (principal); Z78.0 Asymptomatic menopausal state; M85.852 Other specified disorders of bone density and structure, left thigh; M85.851 Other specified disorders of bone density and structure, right thigh
CPT/HCPCS: 77063; 77067; 77080

== ENCOUNTER 2023-02-27 08:23 | Outpatient (CLI) | payer MEDICARE, SELFPAY ==
--- NOTE | ~2023-02-27 | US_ITS ---
EXAMINATION: US abdomen limited DATE: 02/27/2023 08:51 INDICATION: Right upper quadrant pain, prior cholecystectomy TECHNIQUE: Multiple grayscale and Doppler ultrasound images of the abdomen were obtained. COMPARISON: CT, 07/16/2022 FINDINGS: The head, body, and tail of the pancreas are normal. The liver is normal with normal echoge nicity and echotexture. No surface nodularity. Normal hepatopetal flow in the main portal vein. The g allbladder is surgically absent. The normal common bile duct measures 5 mm. IMPRESSION: 1. Unremarkable postcholecystectomy ultrasound. Reviewed, dictated and finalized at location B.
== END 2023-02-27 08:24 | disposition home or self-care (01) ==
PROVIDERS: PCP Family Medicine; Visit Provider Family Medicine
DX: R10.11 Right upper quadrant pain (principal)
CPT/HCPCS: 76705

== ENCOUNTER 2023-03-30 08:12 | Outpatient (CLI) | payer MEDICARE, SELFPAY ==
[2023-03-30 09:03] LABS: CRP < 0.5 mg/dL (<1.0); Uric Acid 7.2 mg/dL (2.5-7.5)
[2023-03-30 09:49] LABS: Erythrocyte Sedimentation Rate 1 mm/hr (0-20)
[2023-03-30 09:58] LABS: Rheumatoid Factor < 12.0 IU/ML (<12)
[2023-04-05 12:58] LABS: Anti Cyclic Citrullinated Pept <16 Units (<20)
== END 2023-03-30 08:13 | disposition home or self-care (01) ==
PROVIDERS: PCP Family Medicine; Visit Provider Podiatrist Foot & Ankle Surgery
DX: M25.572 Pain in left ankle and joints of left foot (principal)
CPT/HCPCS: 36415; 84550; 85652; 86140; 86200; 86430

== ENCOUNTER 2023-09-13 10:01 | Outpatient (CLI) | payer MEDICARE, SELFPAY ==
--- NOTE | ~2023-09-13 | XR_ITS ---
EXAMINATION: XR shoulder RT min 2V INDICATION: Right shoulder pain TECHNIQUE: Four views of the right shoulder are submitted. COMPARISON: 12/24/2018 FINDINGS: Normal alignment. No fracture. There is mild osteoarthritis of the glenohumeral joint and m oderate osteoarthritis of the acromioclavicular joint. Soft tissues are unremarkable. IMPRESSION: 1. Osteoarthritis without acute osseous abnormality. Reviewed, dictated and finalized at location B. 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
--- NOTE | ~2023-09-13 | XR_ITS ---
EXAMINATION: XR shoulder LT min 2V INDICATION: Left shoulder pain TECHNIQUE: Four views of the left shoulder are submitted. COMPARISON: 11/24/2017 FINDINGS: Normal alignment. No fracture. There is moderate glenohumeral and acromioclavicular joint o steoarthritis. Soft tissues are unremarkable. A chronic sclerotic lesion of the proximal left humerus appearance of an enchondroma. IMPRESSION: 1. Osteoarthritis without acute osseous abnormality. Reviewed, dictated and finalized at location B. ER TENDER
== END 2023-09-13 10:02 | disposition home or self-care (01) ==
LOC: ANHLAB 10:06
PROVIDERS: PCP Family Medicine; Visit Provider Internal Medicine
DX: M19.012 Primary osteoarthritis, left shoulder (principal); M19.011 Primary osteoarthritis, right shoulder
CPT/HCPCS: 73030

== ENCOUNTER 2023-10-12 16:36 | Emergency (ER) | payer MEDICARE, SELFPAY ==
[2023-10-12 16:58] VITALS: BP 138/88; PULSE 94; RESP 18; TEMP 36.3; O2SAT 96
--- NOTE | 2023-10-12 20:13 | ED.EXTPRO ---
HPI - Extremity Problem General Chief complaint: Extremity Problem,Nontraumatic Stated complaint: shoulder pain-history of osteoarthritis Time Seen by Provider: 10/12/23 19:41 History of Present Illness HPI Narrative: Patient is a 78-year-old female who presents ER with bilateral shoulder pain. Has history of osteoarthritis as well as osteoporosis. She is scheduled to get bilateral shoulder injections in the next 2 weeks. She received her flu shot little over a month ago in her pain began shortly afterwards. Occasionally she will get tingling going down to her fingers at nighttime that improves when she changes positions. No chest discomfort. She reports that she has been on celecoxib as well as Medrol Dosepak last month without improvement. She has been on tramadol and [place] without improvement. She would like something stronger. No trauma. Joints are not swollen or red. No fevers or chills or sweats. Related Data Home Medications Medication Instructions Recorded Confirmed aspirin 81 mg tablet,delayed 81 mg PO DAILY 09/23/19 10/10/23 release (Adult Low Dose Aspirin) buspirone 10 mg tablet 10 mg PO BID 03/16/21 10/10/23 multivitamin (Daily Multi-Vitamin 1 tablet PO DAILY 09/07/21 10/10/23 tablet) pravastatin 20 mg tablet 20 mg PO DAILY 10/10/23 10/10/23 Allergies Allergy/AdvReac Type Severity Reaction Status Date / Time codeine AdvReac Unknown Hallucinati Verified 10/12/23 16:37 ng Review of Systems Review of Systems: All systems reviewed & are unremarkable except as noted in HPI and below Constitutional: Constitutional: Denies chills, Denies fatigue and Denies fever(s) Cardiovascular: Cardiovascular: Reports no additional cardiovascular complaints Respiratory: Respiratory: Reports no additional respiratory complaints Musculoskeletal: Musculoskeletal: Denies back pain, Denies myalgias, Reports arthralgias, Denies joint swelling and Denies muscle cramps Neurologic: Denies numbness and Denies weakness PMFSH Past Medical History Medical History Anxiety Arthritis Cholecystectomy planned CKD stage G3a/A1, GFR 45-59 and albumin creatinine ratio <30 mg/g Hepatitis Hypertension Liver disease Major depressive disorder, recurrent, in remission Migraines Osteoporosis Psychiatric care Surgical History Surgical History H/O: hysterectomy History of knee replacement Family History Family History Sibling Diabetes mellitus Family history of mental disorder Family history of malignant neoplasm Grandparent Family history of osteoporosis Depression Family history of arthritis Family history of migraine headaches Father Family history of suicide Family history of alcoholism Mother Family history of migraine headaches, Onset Age: 34 Social History Social History Smoking status: Never smoker Second hand tobacco smoke exposure: No Alcohol intake: never Substance use: never Substance use type: does not use Lack of Transportation: No Lack of Food: Never True Current Housing: I Have Housing Concerned About Future Housing: No Difficulty Paying Gas/Electric Bills: No Difficulty Paying for Meds: No Currently Unemployed: No Education: High School Diploma/GED Difficulty w/ Childcare or Family Care: No Living arrangements: with family Additional living arrangements comments: granddaughter lives with her Spiritual care concerns: No Exam Narrative: GENERAL: Well-appearing, well-nourished, and in no acute distress. HEAD: Normocephalic, atraumatic. ENT: Mucous membranes moist. Neck: No midline tenderness or paraspinal muscle tenderness in the cervical spine. CHEST: Clear to auscultation. No respiratory distress. HEART: Regular rate
[2023-10-12] MEDS: KETOROLAC 30 MG/ML VIAL (*BKC) IM (20:36)
[2023-10-12] MEDS: oxyCODONE/ACETAMINOPHEN (*CRX) 5-325 MG TABLET 1 TABLET PO (20:36)
[2023-10-12 21:01] VITALS: BP 132/79; PULSE 64; RESP 18; O2SAT 100
== END 2023-10-12 21:02 | disposition home or self-care (01) ==
PROVIDERS: Emergency Provider Emergency Medicine; PCP Internal Medicine
DX: M25.512 Pain in left shoulder (principal); M25.511 Pain in right shoulder; G89.29 Other chronic pain; I12.9 Hypertensive chronic kidney disease with stage 1 through stage 4 chronic kidney disease, or unspecified chronic kidney disease; N18.31 Chronic kidney disease, stage 3a; M81.0 Age-related osteoporosis without current pathological fracture; M19.90 Unspecified osteoarthritis, unspecified site; F41.9 Anxiety disorder, unspecified; F33.40 Major depressive disorder, recurrent, in remission, unspecified; Z96.659 Presence of unspecified artificial knee joint; Z90.710 Acquired absence of both cervix and uterus; Z79.82 Long term (current) use of aspirin
CPT/HCPCS: 96372; 99283; A9270; J1885

== ENCOUNTER 2024-03-05 09:01 | Outpatient (CLI) | payer MEDICARE, SELFPAY ==
--- NOTE | ~2024-03-05 | MM_ITS ---
EXAMINATION: MM screening [facility] BI w sheree HISTORY: Screening mammogram TECHNIQUE: Craniocaudal and mediolateral oblique 3-D tomosynthesis images were obtained and synthetic 2-D images were generated. CAD analysis was submitted and interpreted. COMPARISON: 10/10/2022, 12/01/2018 bilateral screening mammogram examinations BREAST PARENCHYMAL COMPOSITION: There are scattered areas of fibroglandular density. FINDINGS: Scattered bilateral benign calcifications are again noted. There is no evidence of suspicio us mass, calcification, or architectural distortion to suggest malignancy in either breast. There has been no suspicious interval change. IMPRESSION: 1. No mammographic evidence of malignancy. 2. Recommend routine screening mammography in one year. BI-RADS Category 2: Benign finding(s). Reviewed, dictated and finalized at location A.
== END 2024-03-05 09:02 | disposition home or self-care (01) ==
PROVIDERS: PCP Internal Medicine; Visit Provider Internal Medicine
DX: Z12.31 Encounter for screening mammogram for malignant neoplasm of breast (principal)
CPT/HCPCS: 77063; 77067

== ENCOUNTER 2024-04-15 19:23 | Emergency (ER) | payer MEDICARE, SELFPAY ==
--- NOTE | ~2024-04-15 | XR_ITS ---
EXAMINATION: XR chest 2V Exam Date/Time: 04/15/2024 20:32 CDT HISTORY: swelling and pain in both lower legs Comparison: 01/17/2018. RESULT: Lines, tubes, and devices: Cholecystectomy clips. Lungs and pleura: Major fissure thickening is seen in the lateral view, lungs otherwise clear. Cardiomediastinal silhouette: Stable. Other: No acute osseous or upper abdominal finding. IMPRESSION: Fissural thickening may reflect subpleural fluid. Otherwise, no acute cardiopulmonary process. Reviewed, dictated and finalized at location K. IMPRESSION: Fissural thickening may reflect subpleural fluid. Otherwise, no acute cardiopul monary process.
[2024-04-15 19:26] VITALS: BP 123/75; PULSE 59; RESP 16; TEMP 36.8; O2SAT 99
[2024-04-15 19:47] VITALS: BP 136/78; PULSE 61; RESP 20; O2SAT 95
--- NOTE | 2024-04-15 19:47 | ECG_ITS ---
Test Date: 2024-04-15 19:55:46 Measurements Intervals [place] Rate: 53 P: 53 CO: 161 QRS: -41 QRSD: 92 T: 87 QT: 437 QTc: 414 Interpretive Statements SINUS BRADYCARDIA MARKED LEFT AXIS DEVIATION [QRS AXIS < -30] LEFT VENTRICULAR HYPERTROPHY AND ST-T CHANGE [VOLTAGE CRITERIA PLUS ST/T ABNORMALITY] No previous ECG available for comparison Electronically Signed On 04-16-2024 10:50:49 CDT by Shalonda Bridges M.D.
--- NOTE | 2024-04-15 20:09 | ED.EXTPRO ---
HPI - Extremity Problem General Chief complaint: Extremity Problem,Nontraumatic Stated complaint: swelling of feet Time Seen by Provider: 04/15/24 20:08 Related Data Home Medications Medication Instructions Recorded Confirmed aspirin 81 mg tablet,delayed 81 mg PO DAILY 09/23/19 10/10/23 release (Adult Low Dose Aspirin) buspirone 10 mg tablet 10 mg PO BID 03/16/21 10/10/23 multivitamin (Daily Multi-Vitamin 1 tablet PO DAILY 09/07/21 10/10/23 tablet) pravastatin 20 mg tablet 20 mg PO DAILY 10/10/23 10/10/23 Allergies Allergy/AdvReac Type Severity Reaction Status Date / Time codeine AdvReac Unknown Hallucinati Verified 04/15/24 19:46 ng PMFSH Past Medical History Medical History Anxiety Arthritis Cholecystectomy planned CKD stage G3a/A1, GFR 45-59 and albumin creatinine ratio <30 mg/g Hepatitis Hypertension Liver disease Major depressive disorder, recurrent, in remission Migraines Osteoporosis Psychiatric care Surgical History Surgical History H/O: hysterectomy History of knee replacement Family History Family History Sibling Diabetes mellitus Family history of mental disorder Family history of malignant neoplasm Grandparent Family history of osteoporosis Depression Family history of arthritis Family history of migraine headaches Father Family history of suicide Family history of alcoholism Mother Family history of migraine headaches, Onset Age: 34 Social History Social History Smoking status: Never smoker Second hand tobacco smoke exposure: No Alcohol intake: never Substance use: never Substance use type: does not use Lack of Transportation: No Lack of Food: Never True Current Housing: I Have Housing Concerned About Future Housing: No Difficulty Paying Gas/Electric Bills: No Difficulty Paying for Meds: No Currently Unemployed: No Education: High School Diploma/GED Difficulty w/ Childcare or Family Care: No Living arrangements: with family Additional living arrangements comments: granddaughter lives with her Spiritual care concerns: No Course Vital Signs Vital signs: Vital Signs Temperature 36.8 C 04/15/24 19:26 Pulse Rate 59 L 04/15/24 19:26 Respiratory Rate 16 04/15/24 19:26 Blood Pressure 123/75 04/15/24 19:26 Pulse Oximetry 99 04/15/24 19:26 Oxygen Delivery Room Air 04/15/24 19:26 Temperature 36.8 C 04/15/24 19:26 Pulse Rate 61 04/15/24 19:47 Respiratory Rate 20 04/15/24 19:47 Blood Pressure 136/78 04/15/24 19:47 Pulse Oximetry 95 04/15/24 19:47 Oxygen Delivery Room Air 04/15/24 19:26 MDM - Extremity (Nontraumatic) Lab Data 04/15/24 20:52 04/15/24 20:52 Labs: Lab Results 04/15/24 Range/Units 20:52 WBC 6.0 (4.5-10.0) K/mm3 RBC 4.55 (4.2-5.4) M/mm3 Hgb 13.0 (12.0-15.0) g/dL Hct 40.2 (37.0-47.0) % MCV 88.4 (80-100) fl MCH 28.6 (26-34) pg MCHC 32.3 (32-36) g/dl RDW 12.4 (11.5-14.5) % Plt Count 218 (150-375) k/mm3 MPV 10.6 H (7.4-10.4) fl Immature Gran % (Auto) 0.2 (0-0.5) % Neut % (Auto) 56.0 (45.5-73.1) % Lymph % (Auto) 26.8 (18.3-44.2) % [place] % (Auto) 11.0 H (2.6-8.5) % Eos % (Auto) 5.3 H (0-4.4) % Baso % (Auto) 0.7 (0.2-1.2) % Lymph # (Auto) 1.61 (0.9-3.2) K/mm3 [place] # (Auto) 0.7 H (0.1-0.6) K/mm3 Eos # (Auto) 0.3 (0-0.3) K/mm3 Baso # (Auto) 0.0 (0.0-0.1) K/mm3 Abs Immat Gran (auto) 0.01 (0.00-0.031) K/mm3 Absolute Neuts (auto) 3.4 (1.3-6.7) K/mm3 Absolute Nucleated RBC 0.000 (0.0-0.012) K/mm3 Nucleated RBC % 0.0 (0.0-0.2) % Sodium 139 (137-145) mmol/L Potassium 3.6 (3.4-5.0) mmol/L Chloride 106 (98-107) mmol/L Carbon
--- NOTE | 2024-04-15 20:30 | ED.EXTPRO ---
HPI - Extremity Problem General Chief complaint: Extremity Problem,Nontraumatic Stated complaint: swelling of feet Time Seen by Provider: 04/15/24 20:08 History of Present Illness HPI Narrative: 78-year-old female with history of hypertension, hyperlipidemia, PARVEZ, MDD, anxiety, CKD presents to the emergency department for bilateral lower extremity edema for 1 month, worsening over the past few days. Patient states she was evaluated by her PCP at the start of the edema to her lower extremities 1 month ago and her PCP was concerned she may have gout. She took a course of prednisone without improvement. She followed up with her PCP today and was told may be secondary to her blood pressure medications and they recommended stopping her medications to see if the swelling improved. She presents today because since she saw her PCP today, she has developed a burning sensation in her feet that travels up to her knees. States she has never happened before. She denies fever, chest pain or shortness of breath, history of CHF, abdominal pain, nausea vomiting, diarrhea. Related Data Home Medications Medication Instructions Recorded Confirmed aspirin 81 mg tablet,delayed 81 mg PO DAILY 09/23/19 10/10/23 release (Adult Low Dose Aspirin) buspirone 10 mg tablet 10 mg PO BID 03/16/21 10/10/23 multivitamin (Daily Multi-Vitamin 1 tablet PO DAILY 09/07/21 10/10/23 tablet) pravastatin 20 mg tablet 20 mg PO DAILY 10/10/23 10/10/23 Allergies Allergy/AdvReac Type Severity Reaction Status Date / Time codeine AdvReac Unknown Hallucinati Verified 04/15/24 19:46 ng Review of Systems Review of Systems: CONSTITUTIONAL: Denies fever, chills, or sweats. EYES: Denies visual changes, redness, or discharge. ENT: Denies rhinorrhea, congestion, sore throat, or otalgia. CARDIOVASCULAR: Denies chest pain, palpitations, or edema. RESPIRATORY: Denies cough or dyspnea. GASTROINTESTINAL: Denies abdominal pain, nausea, vomiting, or diarrhea. GENITOURINARY: Denies dysuria or hematuria. SKIN: see HPI MUSCULOSKELETAL: Denies back pain, joint pain, or myalgia. NEUROLOGIC: Denies headache, numbness, or weakness. PSYCHIATRIC: Denies anxiety or depression. [facility] Past Medical History Medical History Anxiety Arthritis Cholecystectomy planned CKD stage G3a/A1, GFR 45-59 and albumin creatinine ratio <30 mg/g Hepatitis Hypertension Liver disease Major depressive disorder, recurrent, in remission Migraines Osteoporosis Psychiatric care Surgical History Surgical History H/O: hysterectomy History of knee replacement Family History Family History Sibling Diabetes mellitus Family history of mental disorder Family history of malignant neoplasm Grandparent Family history of osteoporosis Depression Family history of arthritis Family history of migraine headaches Father Family history of suicide Family history of alcoholism Mother Family history of migraine headaches, Onset Age: 34 Social History Social History Smoking status: Never smoker Second hand tobacco smoke exposure: No Alcohol intake: never Substance use: never Substance use type: does not use Lack of Transportation: No Lack of Food: Never True Current Housing: I Have Housing Concerned About Future Housing: No Difficulty Paying Gas/Electric Bills: No Difficulty Paying for Meds: No Currently Unemployed: No Education: High School Diploma/GED Difficulty w/ Childcare or Family Care: No Living arrangements: with family Additional living arrangements comments: granddaughter lives with her Spiritual care concerns: No Exam Narrative: GENERAL: Well-appearing, well-nourished, and in no acute distress. H
[2024-04-15 21:05] LABS: Basophils Percent Auto 0.7 % (0.2-1.2); Eosinophils Absolute Auto 0.3 K/mm3 (0-0.3); Eosinophils Percent Auto 5.3 % (0-4.4); Hematocrit 40.2 % (37.0-47.0); Immature Granulocyte Absolute 0.01 K/mm3 (0.00-0.031); Immature Granulocyte Percent A 0.2 % (0-0.5); Lymphocytes Absolute Auto 1.61 K/mm3 (0.9-3.2); Lymphocytes Percent Auto 26.8 % (18.3-44.2); Mean Corpuscular HGB Conc 32.3 g/dl (32-36); Mean Corpuscular Hemoglobin 28.6 pg (26-34); Mean Corpuscular Volume 88.4 fl (80-100); Mean Platelet Volume 10.6 fl (7.4-10.4); Monocytes Absolute Auto 0.7 K/mm3 (0.1-0.6); Neutrophils Absolute Auto 3.4 K/mm3 (1.3-6.7); Platelet Count Result 218 k/mm3 (150-375); Red Blood Count 4.55 M/mm3 (4.2-5.4); Red Cell Distribution Width 12.4 % (11.5-14.5)
[2024-04-15 21:17] LABS: Alanine Aminotransferase 14 U/L (6-35); Albumin Level 4.3 g/dL (3.5-5.1); Alkaline Phosphatase 65 U/L (38-126); Anion Gap 6 mmol/L (4-12); Aspartate Amino Transferase 20 U/L (14-36); Bilirubin,Total 0.4 mg/dL (0.2-1.3); Blood Urea Nitrogen 24 mg/dL (7-17); Carbon Dioxide 27 mmol/L (22-30); Chloride 106 mmol/L (98-107); Estimated CRCL calculation 31 ml/min; Estimated Glomerular Filt Rate 44; Glucose 105 mg/dL (65-110); Potassium 3.6 mmol/L (3.4-5.0); Sodium 139 mmol/L (137-145)
[2024-04-15 21:28] LABS: NT Pro B Type Natriuretic Pept 207 pg/mL (19.9-100)
== END 2024-04-15 22:40 | disposition home or self-care (01) ==
PROVIDERS: Emergency Provider Physician Assistant; PCP Internal Medicine
DX: R60.0 Localized edema (principal); I12.9 Hypertensive chronic kidney disease with stage 1 through stage 4 chronic kidney disease, or unspecified chronic kidney disease; N18.31 Chronic kidney disease, stage 3a; K76.9 Liver disease, unspecified; E78.5 Hyperlipidemia, unspecified; G47.33 Obstructive sleep apnea (adult) (pediatric); M81.0 Age-related osteoporosis without current pathological fracture; M19.90 Unspecified osteoarthritis, unspecified site; F41.9 Anxiety disorder, unspecified; F33.40 Major depressive disorder, recurrent, in remission, unspecified; Z96.659 Presence of unspecified artificial knee joint; Z90.710 Acquired absence of both cervix and uterus; Z79.899 Other long term (current) drug therapy; Z79.82 Long term (current) use of aspirin; R00.1 Bradycardia, unspecified
CPT/HCPCS: 36415; 71046; 80053; 83880; 85025; 93005; 99283

== ENCOUNTER 2024-07-30 18:58 | Emergency (ER) | payer MEDICARE, SELFPAY ==
--- NOTE | ~2024-07-30 | XR_ITS ---
EXAMINATION: XR chest 2V DATE: 07/30/2024 19:31 INDICATION: Chest pain and shortness of breath TECHNIQUE: PA and lateral views of the chest were obtained. COMPARISON: Chest radiograph dated 04/15/2024 FINDINGS: The lungs are clear with no focal airspace opacities, pulmonary edema, pleural effusion or pneumothor ax. Heart size is normal. Cholecystectomy clips in right upper quadrant. Moderate to severe thoracic and upper lumbar spondylosis. Chronic enchondroma at the proximal left humerus with ring and arc-like sclerotic chondroid matrix. IMPRESSION: 1. No acute cardiopulmonary disease. Reviewed, dictated and finalized at location A.
--- NOTE | 2024-07-30 19:04 | ECG_ITS ---
Test Date: 2024-07-30 19:04:11 Measurements Intervals [place] Rate: 57 P: 80 [place]: 159 QRS: -65 QRSD: 91 T: 180 QT: 416 QTc: 406 Interpretive Statements SINUS BRADYCARDIA LEFT ANTERIOR FASCICULAR BLOCK BORDERLINE ST-T WAVE ABNORMALITY- DIFFUSE LEADS BASELINE ARTIFACT- I, II, III, AVR, AVL, AVF, V1-V6 BORDERLINE ECG NONSPECIFIC ST & T-WAVE ABNORMALITY Compared to ECG 04/15/2024 19:55:46 NO SIGNIFICANT CHANGE Electronically Signed On 08-01-2024 07:58:02 CDT by Kurt Montgomery D.O.
[2024-07-30 19:18] VITALS: BP 156/93; PULSE 56; RESP 22; TEMP 36.6; O2SAT 94
[2024-07-30 19:25] LABS: Basophils Percent Auto 0.5 % (0.2-1.2); Eosinophils Absolute Auto 0.2 K/mm3 (0-0.3); Eosinophils Percent Auto 2.3 % (0-4.4); Hematocrit 45.3 % (37.0-47.0); Hemoglobin 14.4 g/dL (12.0-15.0); Immature Granulocyte Absolute 0.02 K/mm3 (0.00-0.031); Immature Granulocyte Percent A 0.3 % (0-0.5); Lymphocytes Absolute Auto 1.45 K/mm3 (0.9-3.2); Lymphocytes Percent Auto 18.1 % (18.3-44.2); Mean Corpuscular HGB Conc 31.8 g/dl (32-36); Mean Corpuscular Hemoglobin 27.8 pg (26-34); Mean Corpuscular Volume 87.5 fl (80-100); Mean Platelet Volume 10.8 fl (7.4-10.4); Monocytes Absolute Auto 0.7 K/mm3 (0.1-0.6); Monocytes Percent Auto 8.4 % (2.6-8.5); Neutrophils Absolute Auto 5.6 K/mm3 (1.3-6.7); Neutrophils Percent Auto 70.4 % (45.5-73.1); Platelet Count Result 240 k/mm3 (150-375); Red Blood Count 5.18 M/mm3 (4.2-5.4); Red Cell Distribution Width 13.7 % (11.5-14.5)
[2024-07-30 19:36] LABS: INR 0.9; Prothrombin Time 12.7 Seconds (11.1-14.7)
[2024-07-30 19:37] LABS: Partial Thromboplastin Time 30.1 Seconds (22.3-36.8)
[2024-07-30 19:43] LABS: Alanine Aminotransferase 13 U/L (6-35); Albumin Level 4.4 g/dL (3.5-5.1); Alkaline Phosphatase 66 U/L (38-126); Anion Gap 10 mmol/L (4-12); Aspartate Amino Transferase 18 U/L (14-36); Bilirubin,Total 0.8 mg/dL (0.2-1.3); Blood Urea Nitrogen 12 mg/dL (7-17); Calcium 9.2 mg/dL (8.4-10.2); Carbon Dioxide 29 mmol/L (22-30); Chloride 100 mmol/L (98-107); Estimated CRCL calculation 41 ml/min; Estimated Glomerular Filt Rate > 60; Glucose 153 mg/dL (65-110); Lipase 89 U/L (23-300); Potassium 3.4 mmol/L (3.4-5.0); Sodium 139 mmol/L (137-145)
[2024-07-30 19:49] LABS: Troponin I < 0.012 ng/mL (0.000-0.034)
--- NOTE | 2024-07-30 21:22 | ED.CHESTPAIN ---
HPI - Chest Pain General Chief Complaint: Chest Pain Stated Complaint: Chest Pain Time Seen by Provider: 07/30/24 21:16 History of Present Illness HPI narrative: Patient is a 78-year-old female who presents to the emergency department this evening complaining of substernal chest pain that started this morning and subsided and then started again approximately 1 hour prior to arrival. Patient denies any similar symptoms in the past and states that when the pain started she rates it 6 out of and right now she rates it a 5/10. Pain does not radiate. Patient states that she has been having some shortness of breath and a runny nose but denies any cough or fevers at home. Denies any sick contacts at home. Denies any nausea or vomiting, any abdominal pain and denies any urinary symptoms. Denies any history of previous [place]. Patient does have a history of hypertension and hyperlipidemia, denies any history of diabetes denies any tobacco use. No additional symptoms or concerns at this time. Related Data Home Medications Medication Instructions Recorded Confirmed aspirin 81 mg tablet,delayed 81 mg PO DAILY 09/23/19 10/10/23 release (Adult Low Dose Aspirin) buspirone 10 mg tablet 10 mg PO BID 03/16/21 10/10/23 multivitamin (Daily Multi-Vitamin 1 tablet PO DAILY 09/07/21 10/10/23 tablet) pravastatin 20 mg tablet 20 mg PO DAILY 10/10/23 10/10/23 Allergies Allergy/AdvReac Type Severity Reaction Status Date / Time codeine AdvReac Unknown Hallucinati Verified 04/15/24 19:46 ng Review of Systems Review of Systems: All systems are reviewed and are negative unless stated otherwise in the HPI. [facility] Past Medical History Medical History Anxiety Arthritis Cholecystectomy planned CKD stage G3a/A1, GFR 45-59 and albumin creatinine ratio <30 mg/g Hepatitis Hypertension Liver disease Major depressive disorder, recurrent, in remission Migraines Osteoporosis Psychiatric care Surgical History Surgical History H/O: hysterectomy History of knee replacement Family History Family History Sibling Diabetes mellitus Family history of mental disorder Family history of malignant neoplasm Grandparent Family history of osteoporosis Depression Family history of arthritis Family history of migraine headaches Father Family history of suicide Family history of alcoholism Mother Family history of migraine headaches, Onset Age: 34 Social History Social History Smoking status: Never smoker Second hand tobacco smoke exposure: No Alcohol intake: never Substance use: never Substance use type: does not use Lack of Transportation: No Lack of Food: Never True Current Housing: I Have Housing Concerned About Future Housing: No Difficulty Paying Gas/Electric Bills: No Difficulty Paying for Meds: No Currently Unemployed: No Education: High School Diploma/GED Difficulty w/ Childcare or Family Care: No Living arrangements: with family Additional living arrangements comments: granddaughter lives with her Spiritual care concerns: No Exam Narrative: General: Alert, awake, afebrile, in no acute distress. HEENT: PERRL, no rhinorrhea, no post nasal drip, oropharynx clear. Cardiovascular: Regular rate and rhythm, no murmurs, rubs or gallops, no peripheral edema. Respiratory: Clear to auscultation bilaterally, no tachypnea, no wheezing, no rhonchi, no rubs, no respiratory distress. Abdomen: Soft, nontender, nondistended, no rebound, no guarding, no peritoneal signs. Musculoskeletal: No joint swelling or deformity, normal muscle tone. Skin: No rashes or petechia, no signs of infection. Neurological: Alert and oriented to person, place, and time. Follows all commands. No f
[2024-07-30] MEDS: ASPIRIN 81 MG CHEWABLE TABLET 324 MG PO (21:28)
[2024-07-30 21:29] VITALS: BP 146/76; PULSE 66; PULSE 70; RESP 16; O2SAT 98
--- NOTE | 2024-07-30 22:19 | ECG_ITS ---
Test Date: 2024-07-30 22:19:10 Measurements Intervals [place] Rate: 54 P: 65 [place]: 167 QRS: -37 QRSD: 100 T: 0 QT: 393 QTc: 375 Interpretive Statements SINUS BRADYCARDIA LEFT AXIS DEVIATION DELAYED PRECORDIAL R/S TRANSITION LEFT VENTRICULAR HYPERTROPHY AND ST-T CHANGE BORDERLINE ST-T WAVE ABNORMALITY- ANTEROLAT/INF LEADS BASELINE ARTIFACT- I, II, III, AVR, AVL, AVF, V1-V6 BORDERLINE ECG Compared to ECG 04/15/2024 19:55:46 No significant changes Electronically Signed On 07-31-2024 06:25:48 CDT by Kurt Montgomery D.O.
[2024-07-30 22:43] LABS: Troponin I < 0.012 ng/mL (0.000-0.034)
[2024-07-30 23:02] VITALS: BP 150/74; PULSE 60; RESP 15; TEMP 36.8; O2SAT 98
[2024-07-30] MEDS: PANTOPRAZOLE SODIUM IV 40 MG VIAL IV PUSH (23:02)
== END 2024-07-30 23:12 | disposition home or self-care (01) ==
PROVIDERS: Emergency Medicine; Emergency Provider Emergency Medicine; PCP Internal Medicine
DX: R07.89 Other chest pain (principal); I12.9 Hypertensive chronic kidney disease with stage 1 through stage 4 chronic kidney disease, or unspecified chronic kidney disease; N18.31 Chronic kidney disease, stage 3a; M81.0 Age-related osteoporosis without current pathological fracture; M19.90 Unspecified osteoarthritis, unspecified site; F41.9 Anxiety disorder, unspecified; F33.40 Major depressive disorder, recurrent, in remission, unspecified; Z79.82 Long term (current) use of aspirin; Z79.899 Other long term (current) drug therapy; R00.1 Bradycardia, unspecified; I44.4 Left anterior fascicular block; R94.31 Abnormal electrocardiogram [ECG] [EKG]
CPT/HCPCS: 36415; 71046; 80053; 83690; 84484; 85025; 85610; 85730; 93005; 96374; 99284; A9270; J2470

== ENCOUNTER 2024-08-09 09:33 | Observation (INO) | payer MEDICARE, SELFPAY ==
[2024-08-09] VITALS (16 sets, daily range): BP systolic 105–134; BP diastolic 66–85; PULSE 52–76; RESP 18–27; TEMP 36.5–36.7; O2SAT 95–100; BMI 25.8
--- NOTE | 2024-08-09 | ECHO_ITS ---
Patient Info Name: Yoli Valdez Age: 78 years : 1945 Gender: Female Ht: 62 in Wt: 141 lbs BSA: 1.69 m2 HR: 52 bpm BP: 105 / 66 mmHg Heart Rhythm: Bradycardia Technical Quality: Good Exam Date: 08/09/2024 2:12 PM Exam Location: Echo Lab Patient Status: Inpatient Admit Date: 08/09/2024 Staff Ordering Physician: Izzy Marmolejo Electric Melt Operator: Fabiola Burroughs RDCS Attending Provider: Cesar Petit MD Referring Physician: Francie JIMENEZ; Exam Type: CA echo dop color flow w con Study Info Indications R07.9 - Chest pain, unspecified Complete two-dimensional, color flow and Doppler transthoracic echocardiogram is performed with contrast to opacify the left ventricle and to improve the deliniation of the left ventricle endocardial borders. Contrast/Agitated Saline Contrast/Ag. Saline: Definity Amount: 2.00 ml Administered By: Fabiola Burroughs RDCS Existing IV Access: Yes IV Access Condition: patent with no signs of infiltration Summary 1. The left ventricular size and systolic function is normal with normal wall motion. LVEF is estimated to be 60-65%. There is grade 1 diastolic dysfunction. Left Ventricle The left ventricular size and systolic function is normal with normal wall motion. LVEF is estimated to be 60-65%. There is grade 1 diastolic dysfunction. Right Ventricle The right ventricular size and systolic function is normal. Left Atria The left atrium is normal size. Right Atria The right atrium is normal size. Aortic Valve The aortic valve is trileaflet and opens well. There is trivial aortic regurgitation. Pulmonic Valve The pulmonic valve is not well visualized. There is mild pulmonic valve regurgitation. Mitral Valve The mitral valve is normal. There is trace mitral regurgitation. Tricuspid Valve The tricuspid valve is grossly normal. There is trace tricuspid regurgitation. Pulmonary Arteries Pulmonary arterial systolic pressure is estimated at 36 mmHg. Pericardium/Pleural Pericardium is normal in appearance with no evidence for significant pericardial effusion. Left Ventricular Outflow Tract Name Value Normal LVOT Doppler LVOT Peak Gradient 6 mmHg LVOT Mean Gradient 3 mmHg LVOT VTI 21.62 cm LVOT VTI/AV VTI Ratio 0.60 Pulmonic Valve Name Value Normal RVOT Doppler RVOT Peak Gradient 3 mmHg PV Doppler PV Peak Gradient 6 mmHg Mitral Valve Name Value Normal MV Doppler MV Decel Ma[place] 313.61 cm/s2 MV PHT 0 s MV Area (PHT)
--- NOTE | ~2024-08-09 | XR_ITS ---
EXAMINATION: XR wrist LT min 3V DATE: 08/09/2024 10:04 INDICATION: Left wrist pain and swelling TECHNIQUE: Posteroanterior, ulnar deviation, oblique, and lateral views of the left wrist were obtain ed. COMPARISON: 05/13/2019 FINDINGS: Alignment is normal. No fracture. Chondrocalcinosis in the region of the triangular fibrocartilage co mplex. Polyarticular osteoarthritis, severe at the first carpometacarpal joint, moderate severity at the first and second metacarpophalangeal joints and mild at the distal radioulnar, wrist, midcarpal, triscaphe and many of the remaining visualized metacarpal phalangeal and interphalangeal joints. Jillian pheral IV at the dorsal/radial aspect of the distal forearm. IMPRESSION: 1. Polyarticular osteoarthritis at the left hand and wrist, severe at the first carpometacarpal joint . No acute osseous abnormality. Reviewed, dictated and finalized at location A. IMPRESSION: 1. Polyarticular osteoarthritis at the left hand and wrist, severe at the first carpometacarpal joint. No acute osseous abnormality.
--- NOTE | ~2024-08-09 | XR_ITS ---
EXAMINATION: XR chest 2V DATE: 08/09/2024 10:03 INDICATION: Left-sided chest pain. TECHNIQUE: frontal and lateral views of the chest were obtained. COMPARISON: Chest radiograph dated 07/30/2024 FINDINGS: Calcified nodule at the left lower lung zone consistent with old granulomatous disease. No other airs pace opacities, pulmonary edema, pleural effusion or pneumothorax. Heart size is normal. Cholecystect adrian clips in right upper quadrant. Unchanged enchondroma with dense chondroid matrix at the neck of t he proximal left humerus. Moderate thoracic spondylosis IMPRESSION: 1. No acute cardiopulmonary disease. Reviewed, dictated and finalized at location A.
--- NOTE | 2024-08-09 09:37 | ECG_ITS ---
Test Date: 2024-08-09 09:37:51 Measurements Intervals [place] Rate: 70 P: -7 MD: 169 QRS: -42 QRSD: 102 T: 100 QT: 383 QTc: 414 Interpretive Statements SINUS RHYTHM LEFT AXIS DEVIATION [QRS AXIS < -30] PATTERN CONSISTENT WITH PULMONARY DISEASE LEFT VENTRICULAR HYPERTROPHY AND ST-T CHANGE [VOLTAGE CRITERIA PLUS ST/T ABNORMALITY] Compared to ECG 07/30/2024 22:19:10 Sinus bradycardia no longer present ST (T wave) deviation still present Electronically Signed On 08-09-2024 10:42:51 CDT by Lupillo Frank M.D.
[2024-08-09 09:50] LABS: Basophils Absolute Auto 0.1 K/mm3 (0.0-0.1); Basophils Percent Auto 0.3 % (0.2-1.2); Eosinophils Absolute Auto 0.1 K/mm3 (0-0.3); Eosinophils Percent Auto 0.8 % (0-4.4); Hematocrit 43.3 % (37.0-47.0); Hemoglobin 14.5 g/dL (12.0-15.0); Immature Granulocyte Absolute 0.04 K/mm3 (0.00-0.031); Immature Granulocyte Percent A 0.3 % (0-0.5); Lymphocytes Absolute Auto 1.09 K/mm3 (0.9-3.2); Lymphocytes Percent Auto 7.5 % (18.3-44.2); Mean Corpuscular HGB Conc 33.5 g/dl (32-36); Mean Corpuscular Hemoglobin 28.8 pg (26-34); Mean Corpuscular Volume 85.9 fl (80-100); Mean Platelet Volume 10.6 fl (7.4-10.4); Monocytes Absolute Auto 1.4 K/mm3 (0.1-0.6); Monocytes Percent Auto 9.5 % (2.6-8.5); Neutrophils Absolute Auto 11.8 K/mm3 (1.3-6.7); Neutrophils Percent Auto 81.6 % (45.5-73.1); Platelet Count Result 249 k/mm3 (150-375); Red Blood Count 5.04 M/mm3 (4.2-5.4); Red Cell Distribution Width 13.5 % (11.5-14.5); White Blood Count 14.5 K/mm3 (4.5-10.0)
--- NOTE | 2024-08-09 09:52 | ED.CHESTPAIN ---
HPI - Chest Pain General Chief Complaint: Chest Pain Stated Complaint: chest pain Source: patient and EMS Mode of arrival: EMS Limitations: no limitations History of Present Illness HPI narrative: This is a 78-year-old female, with history of hypertension, brought in by EMS from home for chest pain and left wrist pain. The patient states this morning she was woken from sleep with left-sided pressure-like chest pain, radiating to the left arm. This was associated with nausea and cold sweats. She initially rated the pain 7/10 at onset. It has since improved to 3/10 after receiving aspirin and nitroglycerin from EMS. She also complains of left wrist swelling and pain rated 5/10. She denies any known trauma. She has no other complaints at this time. Related Data Home Medications Medication Instructions Recorded Confirmed buspirone 10 mg tablet 10 mg PO BID 03/16/21 08/09/24 multivitamin (Daily Multi-Vitamin 1 tablet PO DAILY 09/07/21 08/09/24 tablet) pravastatin 20 mg tablet 20 mg PO DAILY 10/10/23 08/09/24 lisinopril 40 mg tablet 40 mg DAILY 08/09/24 08/09/24 Allergies Allergy/AdvReac Type Severity Reaction Status Date / Time codeine AdvReac Unknown Hallucinati Verified 04/15/24 19:46 ng Review of Systems Review of Systems: All systems reviewed & are unremarkable except as noted in HPI and below PMFSH Past Medical History Medical History Anxiety Arthritis Cholecystectomy planned CKD stage G3a/A1, GFR 45-59 and albumin creatinine ratio <30 mg/g Hepatitis Hypertension Liver disease Major depressive disorder, recurrent, in remission Migraines Osteoporosis Psychiatric care Surgical History Surgical History H/O: hysterectomy History of knee replacement Family History Family History Sibling Diabetes mellitus Family history of mental disorder Family history of malignant neoplasm Grandparent Family history of osteoporosis Depression Family history of arthritis Family history of migraine headaches Father Family history of suicide Family history of alcoholism Mother Family history of migraine headaches, Onset Age: 34 Social History Social History (Reviewed 08/09/24 @ 13:14 by ARIELLE Garcia Smoking status: Never smoker Second hand tobacco smoke exposure: No Alcohol intake: never Substance use: never Substance use type: does not use Do You Feel Safe in your Home?: Yes Lack of Transportation: No Lack of Food: Never True Current Housing: I Have Housing Concerned About Future Housing: No Difficulty Paying Gas/Electric Bills: No Difficulty Paying for Meds: No Currently Unemployed: No Education: High School Diploma/GED Difficulty w/ Childcare or Family Care: No Living arrangements: with family Additional living arrangements comments: granddaughter lives with her Spiritual care concerns: No Exam Narrative: GENERAL: Well-developed, well-nourished, and in no acute distress. HEAD: Normocephalic, atraumatic. EYES: PERRLA and EOMI. CHEST: Clear to auscultation. No respiratory distress. No wheezes rales or rhonchi HEART: Regular rate and rhythm. No murmur heard. Normal peripheral pulses. ABDOMEN: Soft, nontender, nondistended, normal active bowel sounds. EXTREMITIES: There is tender, nonerythematous swelling noted over the dorsal aspect of the left wrist. Range of motion of the left wrist limited by pain. Otherwise normal range of motion. No edema. SKIN: Warm, dry, no rash. NEURO: Alert and oriented x3. No focal deficit. Moving all 4 limbs spontaneously PSYCH: Normal mood and affect. Course Course Emergency Course: 11:20 - Initial troponin negative. EKG not concerning for ischemia. Heart score 5. I have increased concern for ACS. CBC demonstrates elevated white bl
[2024-08-09 10:02] LABS: Alanine Aminotransferase 13 U/L (6-35); Albumin Level 4.4 g/dL (3.5-5.1); Alkaline Phosphatase 68 U/L (38-126); Anion Gap 10 mmol/L (4-12); Aspartate Amino Transferase 18 U/L (14-36); Bilirubin,Total 1.5 mg/dL (0.2-1.3); Blood Urea Nitrogen 15 mg/dL (7-17); Calcium 8.9 mg/dL (8.4-10.2); Carbon Dioxide 22 mmol/L (22-30); Chloride 106 mmol/L (98-107); Estimated CRCL calculation 43 ml/min; Estimated Glomerular Filt Rate > 60; Glucose 139 mg/dL (65-110); Lipase 72 U/L (23-300); Potassium 3.6 mmol/L (3.4-5.0); Prothrombin Time 13.5 Seconds (11.1-14.7); Sodium 138 mmol/L (137-145)
[2024-08-09 10:03] LABS: Partial Thromboplastin Time 29.7 Seconds (22.3-36.8)
[2024-08-09 10:14] LABS: Troponin I < 0.012 ng/mL (0.000-0.034)
[2024-08-09 10:20] LABS: D Dimer 0.43 ug/mL (<0.48)
--- NOTE | 2024-08-09 13:02 | PM.CNCAR ---
Assessment and Plan Assessment and plan (1) Chest pain: Qualifiers: Chest pain type: unspecified Qualified Code(s): R07.9 - Chest pain, unspecified Code(s): R07.9 - Chest pain, unspecified Status: Acute Assessment and Plan: Atypical chest pain which has been intermittent for a couple of months. Her primary care doctor has scheduled her for a nuclear stress test in a couple of weeks. Her EKG shows sinus rhythm with nonspecific ST-T-wave abnormalities. Her 1st troponin level was negative, 2nd troponin is pending. Will check an echocardiogram to assess LV function and wall motion. If she has normal LV systolic function and no regional wall motion abnormalities, would be okay to discharge from a cardiac perspective with plans to complete her outpatient stress testing as planned. History of Present Illness History of Present Illness Consult date/time: 08/09/24 13:02 Requesting physician: Jani Gayle MD Consult reason: chest pain Reason For Visit: chest pain Narrative: Yoli Valdez is a 78-year-old female admitted for chest pain. She states that she has been having intermittent left shoulder pain that radiates to her left upper chest. She had an episode of this pain this morning and proceeded to the emergency department for evaluation. She states that she was given aspirin and nitroglycerin in the ambulance at which time the pain subsided and has not returned. She has been having this pain intermittently and has been scheduled for an outpatient stress test which will take place on the of this month. She does not have a history of any cardiac problems. She does have hypertension and hyperlipidemia. Denies any family history of cardiac problems. She is comfortable at the time of my evaluation is not have any active complaints. Review of Systems Review of Systems: All systems reviewed & are unremarkable except as noted in HPI and below PMFSH Past Medical History Medical History Anxiety Arthritis Cholecystectomy planned CKD stage G3a/A1, GFR 45-59 and albumin creatinine ratio <30 mg/g Hepatitis Hypertension Liver disease Major depressive disorder, recurrent, in remission Migraines Osteoporosis Psychiatric care Surgical History Surgical History H/O: hysterectomy History of knee replacement Family History Family History Sibling Diabetes mellitus Family history of mental disorder Family history of malignant neoplasm Grandparent Family history of osteoporosis Depression Family history of arthritis Family history of migraine headaches Father Family history of suicide Family history of alcoholism Mother Family history of migraine headaches, Onset Age: 34 Social History Social History Smoking status: Never smoker Second hand tobacco smoke exposure: No Alcohol intake: never Substance use: never Substance use type: does not use Lack of Transportation: No Lack of Food: Never True Current Housing: I Have Housing Concerned About Future Housing: No Difficulty Paying Gas/Electric Bills: No Difficulty Paying for Meds: No Currently Unemployed: No Education: High School Diploma/GED Difficulty w/ Childcare or Family Care: No Living arrangements: with family Additional living arrangements comments: granddaughter lives with her Spiritual care concerns: No Meds Home Medications and Allergies Home Medications Medication Instructions Recorded Confirmed Type aspirin 81 mg tablet,delayed 81 mg PO DAILY 09/23/19 10/10/23 History release (Adult Low Dose Aspirin) calcium 500 mg (as 1 tablet PO BID #180 tabs 03/10/20 10/10/23 Rx carbonate)-vitamin D3 15 mcg (600 unit) tablet (Os-Hal 500 + D3) jose
[2024-08-09 13:42] LABS: Troponin I < 0.012 ng/mL (0.000-0.034)
[2024-08-09] MEDS: PERFLUTREN LIPID MICROSPHERES 1.5 ML VIAL DILUTED TO 10 ML TOTAL VOLUME IV PUSH (14:46)
--- NOTE | 2024-08-09 14:52 | PM.IMHP ---
H&P: HPI History of Present Illness Date/Time: 08/09/24 14:52 Chief Complaint: Chest pain Narrative: This is a 78-year-old female, with history of hypertension, brought in by EMS from home for chest pain radiating to left on also had left wrist pain. The patient states this morning she was woken from sleep with left-sided pressure-like chest pain, radiating to the left arm. This was associated with nausea and cold sweats. She initially rated the pain 7/10 in a. I since 01/13 after receiving aspirin and nitroglycerin from EMS. She also complains of left wrist swelling and pain rated 5/10. She has no other complaints at this time. Review of Systems Review of Systems: - CONSTITUTIONAL: Denies weight loss, fever and chills. - HEENT: Denies changes in vision and hearing - RESPIRATORY: Denies SOB and cough. - CV: Denies palpitations and reports CP. - GI: Denies abdominal pain, nausea, vomiting and diarrhea. - : Denies dysuria and urinary frequency. - MSK: Denies myalgia and joint pain. - SKIN: Denies rash and pruritus. - NEUROLOGICAL: Denies headache and syncope. - PSYCHIATRIC: Denies recent changes in mood. Denies anxiety and depression. [facility] Past Medical History Medical History Anxiety Arthritis Cholecystectomy planned CKD stage G3a/A1, GFR 45-59 and albumin creatinine ratio <30 mg/g Hepatitis Hypertension Liver disease Major depressive disorder, recurrent, in remission Migraines Osteoporosis Psychiatric care Surgical History Surgical History H/O: hysterectomy History of knee replacement Family History Family History Sibling Diabetes mellitus Family history of mental disorder Family history of malignant neoplasm Grandparent Family history of osteoporosis Depression Family history of arthritis Family history of migraine headaches Father Family history of suicide Family history of alcoholism Mother Family history of migraine headaches, Onset Age: 34 Social History Social History Smoking status: Never smoker Second hand tobacco smoke exposure: No Alcohol intake: never Substance use: never Substance use type: does not use Lack of Transportation: No Lack of Food: Never True Current Housing: I Have Housing Concerned About Future Housing: No Difficulty Paying Gas/Electric Bills: No Difficulty Paying for Meds: No Currently Unemployed: No Education: High School Diploma/GED Difficulty w/ Childcare or Family Care: No Living arrangements: with family Additional living arrangements comments: granddaughter lives with her Spiritual care concerns: No Meds Home Medications and Allergies Home Medications Medication Instructions Recorded Confirmed Type aspirin 81 mg tablet,delayed 81 mg PO DAILY 09/23/19 10/10/23 History release (Adult Low Dose Aspirin) calcium 500 mg (as 1 tablet PO BID #180 tabs 03/10/20 10/10/23 Rx carbonate)-vitamin D3 15 mcg (600 unit) tablet (Os-Hal 500 + D3) buspirone 10 mg tablet 10 mg PO BID 03/16/21 10/10/23 History multivitamin (Daily Multi-Vitamin 1 tablet PO DAILY 09/07/21 10/10/23 History tablet) lisinopril 40 mg tablet See Rx Instructions .Route 09/07/22 10/10/23 Rx .COMPLEX #90 tabs omeprazole 40 mg capsule,delayed 40 mg PO DAILY #90 caps 11/02/22 10/10/23 Rx release amlodipine 10 mg tablet 10 mg PO DAILY #90 tabs 11/10/22 10/10/23 Rx metoprolol succinate 25 mg 25 mg PO DAILY #90 tabs 01/16/23 10/10/23 Rx tablet,extended release 24 hr pravastatin 20 mg tablet 20 mg PO DAILY 10/10/23 10/10/23 History celecoxib 100 mg capsule 100 mg PO BID #14 caps 10/12/23 Rx oxycodone-acetaminophen 5 mg-325 1 tablet PO Q6H PRN pain #7 tabs 10/12/23 Rx mg tablet (Percocet)
--- NOTE | 2024-08-09 15:02 | IVDEFINITY ---
Prior to administration of IV Definity the patient was educated on the risks and benefits of the imaging enhancing agent including potential adverse side effects. The patient verbalized understanding. Allergies were verified. No exclusion criteria were identified and at least one of the following inclusion criteria were met: 1) physician request, 2) patient technically difficult to image (per the [place] [employer] guidelines of two or more segments not discernable within the apical view), or 3) questionable left ventricular function. ?
[2024-08-09 17:24] LABS: Troponin I < 0.012 ng/mL (0.000-0.034)
[2024-08-09] MEDS: busPIRone HCL 10 MG TABLET PO (20:56)
[2024-08-10] VITALS (9 sets, daily range): BP systolic 116–144; BP diastolic 62–76; PULSE 62–84; RESP 18; TEMP 37.1–37.6; O2SAT 94–96
[2024-08-10 04:45] LABS: Basophils Percent Auto 0.5 % (0.2-1.2); Eosinophils Absolute Auto 0.1 K/mm3 (0-0.3); Eosinophils Percent Auto 1.6 % (0-4.4); Hematocrit 41.7 % (37.0-47.0); Hemoglobin 13.4 g/dL (12.0-15.0); Immature Granulocyte Absolute 0.03 K/mm3 (0.00-0.031); Immature Granulocyte Percent A 0.4 % (0-0.5); Lymphocytes Absolute Auto 1.37 K/mm3 (0.9-3.2); Lymphocytes Percent Auto 16.7 % (18.3-44.2); Mean Corpuscular HGB Conc 32.1 g/dl (32-36); Mean Corpuscular Hemoglobin 27.7 pg (26-34); Mean Corpuscular Volume 86.2 fl (80-100); Mean Platelet Volume 10.9 fl (7.4-10.4); Monocytes Percent Auto 12.3 % (2.6-8.5); Neutrophils Absolute Auto 5.6 K/mm3 (1.3-6.7); Neutrophils Percent Auto 68.5 % (45.5-73.1); Platelet Count Result 234 k/mm3 (150-375); Red Blood Count 4.84 M/mm3 (4.2-5.4); Red Cell Distribution Width 13.4 % (11.5-14.5); White Blood Count 8.2 K/mm3 (4.5-10.0)
[2024-08-10 04:59] LABS: Anion Gap 7 mmol/L (4-12); Blood Urea Nitrogen 12 mg/dL (7-17); Calcium 8.5 mg/dL (8.4-10.2); Carbon Dioxide 25 mmol/L (22-30); Chloride 106 mmol/L (98-107); Estimated CRCL calculation 36 ml/min; Estimated Glomerular Filt Rate > 60; Glucose 104 mg/dL (65-110); Magnesium 1.9 mg/dL (1.6-2.3); Potassium 3.6 mmol/L (3.4-5.0); Sodium 138 mmol/L (137-145)
[2024-08-10] MEDS: CALCIUM CARBONATE (OSCAL) 500 MG TABLET PO (09:01)
[2024-08-10] MEDS: PANTOPRAZOLE 40 MG TABLET PO (09:01)
[2024-08-10] MEDS: MULTIVITAMINS THERAPEUTIC TAB (*BKC) 1 TABLET PO (09:02)
[2024-08-10] MEDS: lisinopriL 20 MG TABLET 40 MG PO (09:02)
[2024-08-10] MEDS: PRAVASTATIN SODIUM 20 MG TABLET PO (09:02)
[2024-08-10] MEDS: busPIRone HCL 10 MG TABLET PO (09:02)
[2024-08-10] MEDS: METOPROLOL SUCCINATE EXT REL 25 MG TABCR PO (09:02)
--- NOTE | 2024-08-10 10:28 | PM.DS ---
DS: Admitting Diagnosis Discharge Date 08/10/2024 Admitting Diagnosis Chest pain DS: Discharge Diagnosis Discharge Diagnosis (1) Chest pain: Qualifiers: Chest pain type: unspecified Qualified Code(s): R07.9 - Chest pain, unspecified Code(s): R07.9 - Chest pain, unspecified Status: Acute (2) Acute pain of left wrist: Code(s): M25.532 - Pain in left wrist Status: Acute (3) History of colon resection: Code(s): Z90.49 - Acquired absence of other specified parts of digestive tract Status: Acute (4) Osteoporosis: Qualifiers: Osteoporosis type: age-related Presence of current pathological fracture: without current pathological fracture Qualified Code(s): M81.0 - Age-related osteoporosis without current pathological fracture Code(s): M81.0 - Age-related osteoporosis without current pathological fracture Status: Acute (5) Hypertension: Qualifiers: Hypertension type: primary hypertension Qualified Code(s): I10 - Essential (primary) hypertension Code(s): I10 - Essential (primary) hypertension Status: Acute (6) PARVEZ (obstructive sleep apnea): Code(s): G47.33 - Obstructive sleep apnea (adult) (pediatric) Status: Acute (7) Major depressive disorder, recurrent, in remission: Code(s): F33.40 - Major depressive disorder, recurrent, in remission, unspecified Status: Acute (8) Gastro-esophageal reflux disease without esophagitis: Code(s): K21.9 - Gastro-esophageal reflux disease without esophagitis Status: Acute (9) Essential hypertension: Code(s): I10 - Essential (primary) hypertension Status: Acute (10) CKD (chronic kidney disease) stage 2, GFR 60-89 ml/min: Code(s): N18.2 - Chronic kidney disease, stage 2 (mild) Status: Acute (11) Cervical radiculopathy: Code(s): M54.12 - Radiculopathy, cervical region Status: Acute DS: Summary Hospital Course Hospital Course: This is a 78-year-old female who presents to the ED with chest pain radiating to left arm. EKG with nonspecific ST-T changes. Initial troponin negative heart score 5. Laboratory evaluation showed leukocytosis which is resolved next day without any intervention. Chest x-ray with no acute cardiopulmonary process. X-ray left wrist with osteoarthritic changes without concern of fracture or dislocation. Chemistry unremarkable. D-dimer negative. Cardiology consulted intermittent atypical chest pain for past couple months. She is already scheduled for nuclear stress test on . Echocardiogram plan which was performed on 08/09/2024 which showed normal EF at 60-65% with normal wall motion. Grade 1 diastolic dysfunction. Serial troponin was performed which was negative ruling out ACS. She is okay per Cardiology to discharge to perform nuclear stress test as an outpatient basis and will follow-up as an out DVT prophylaxis Lovenox Code status full code Hypertension Major depressive disorder Anxiety Osteoporosis CKD stage 3 Arthritis Time Spent with Patient Time attestation: Total time spent providing and/or coordinating discharge services: 35 minute Exam Narrative: GENERAL: Well-developed, well-nourished, and in no acute distress. HEAD: Normocephalic, atraumatic. EYES: PERRLA and EOMI. CHEST: Clear to auscultation. No respiratory distress. No wheezes rales or rhonchi HEART: Regular rate and rhythm. No murmur heard. Normal peripheral pulses. ABDOMEN: Soft, nontender, nondistended, normal active bowel sounds. EXTREMITIES: There is tender, nonerythematous swelling noted over the dorsal aspect of the left wrist. Range of motion of the left wrist limited by pain. Otherwise normal range of motion. No edema. SKIN: Warm, dry, no rash. NEURO: Alert and oriented x3. No focal deficit. Moving all 4 limbs spontaneously PSYCH: Normal mood and affect. DS: Data Data Completed and Pending Comple
== END 2024-08-10 11:17 | disposition home or self-care (01) ==
LOC: ANHED 11:18 → ANHIMU 11:37
PROVIDERS: Admitting Provider Internal Medicine; Emergency Provider Preventive Medicine Aerospace Medicine; PCP Internal Medicine; Visit Provider Internal Medicine
DX: R07.89 Other chest pain (principal); M19.032 Primary osteoarthritis, left wrist; I12.9 Hypertensive chronic kidney disease with stage 1 through stage 4 chronic kidney disease, or unspecified chronic kidney disease; N18.31 Chronic kidney disease, stage 3a; G47.33 Obstructive sleep apnea (adult) (pediatric); E78.5 Hyperlipidemia, unspecified; M81.0 Age-related osteoporosis without current pathological fracture; M54.12 Radiculopathy, cervical region; F33.40 Major depressive disorder, recurrent, in remission, unspecified; F41.9 Anxiety disorder, unspecified; K21.9 Gastro-esophageal reflux disease without esophagitis; Z79.82 Long term (current) use of aspirin; Z79.899 Other long term (current) drug therapy; Z90.710 Acquired absence of both cervix and uterus; Z90.49 Acquired absence of other specified parts of digestive tract
CPT/HCPCS: 36415; 71046; 73110; 80048; 80053; 83690; 83735; 84484; 85025; 85380; 85610; 85730; 93005; 99285; A9270; C8929; G0378; Q9957

== ENCOUNTER 2025-06-04 09:24 | Outpatient (CLI) | payer MEDICARE, SELFPAY ==
--- NOTE | ~2025-06-04 | DEXA_ITS ---
Bone Density Report Name: DAR ESPINOSA Age: 79 Sex: Female Ethnicity: White Date of : 1945 Indication: osteopenia; monitoring treatment; height loss; rheumatoid arthritis; Referring Provider: CONRADKENIA Study: Bone densitometry was performed. Exam Date: June 04, 2025 Accession number: [id number] Bone Density: Region BMD T-score Z-score Classification AP Spine(L1-L4) 1.111 0.6 3.2 Normal Femoral Neck (Left) 0.634 -1.9 0.3 Osteopenia Total Hip (Left) 0.808 -1.1 0.9 Osteopenia Femoral Neck (Right) 0.603 -2.2 0.0 Osteopenia Total Hip (Right) 0.807 -1.1 0.9 Osteopenia Total Hip Mean 0.808 -1.1 0.9 Osteopenia World Health Organization criteria for BMD impression classify patients as: Normal (T-score at or above -1.0), Osteopenia (T-score between -1.0 and -2.5), or Osteoporosis (T-score at or below -2.5). 10-year Fracture Risk: FRAX not reported because: Treated for osteoporosis Previous Exams: Region Exam Age BMD T-score BMD Change BMD Change Date g/cm2 vs Baseline vs Previous AP Spine (L1-L4) 06/04/2025 79 1.111 0.6 0.202 (22.2%)# 0.013 (1.1%) 10/10/2022 77 1.098 0.5 0.189 (20.8%)# 0.189 (20.8%)# 07/12/2013 67 0.909 -1.3 Total Hip(Left) 06/04/2025 79 0.808 -1.1 0.198 (32.5%)# 0.077 (10.5%)* 10/10/2022 77 0.731 -1.7 0.121 (19.9%)# -0.021 (-2.7%) 09/27/2019 74 0.751 -1.6 0.142 (23.2%)# 0.049 (7.0%)* 11/23/2017 72 0.702 -2.0 0.093 (15.2%)# 0.028 (4.1%)* 09/29/2015 70 0.675 -2.2 0.065 (10.7%)# 0.065 (10.7%)# 07/12/2013 67 0.610 -2.7 Total Hip(Right) 06/04/2025 79 0.807 -1.1 0.126 (18.5%)# 0.011 (1.4%) 10/10/2022 77 0.796 -1.2 0.115 (16.9%)# 0.028 (3.6%)* 09/27/2019 74 0.768 -1.4 0.088 (12.9%)# 0.078 (11.4%)* 11/23/2017 72 0.690 -2.1 0.009 (1.4%)# 0.043 (6.6%)* 09/29/2015 70 0.647 -2.4 -0.034 (-4.9%) -0.034 (-4.9%) 07/12/2013 67 0.681 -2.1 *Denotes significance at 95% confidence level, LSC for AP Spine = 0.022 g/cm2, LSC for Total Hip = 0.027 g/cm2 # Denotes dissimilar scan types or analysis methods Clinical Information Provided by Patient: Has rheumatoid arthritis Is being treated for osteoporosis Has used the following medications: Vitamin D, Calcium Patient maximum height was 63 No regular weight bearing exercise Onset of menses at age 13 Number of children 3 Impression: The patient has low bone mass, based on the Right Femoral Neck T-score. No significant bone loss was observed. Discussion: PATIENT UNDER TREATMENT WITH NO SIGNIFICANT BMD LOSS SINCE LAST EXAM. In an untreated patient, BMD typically declines with age. A lack of decline or gain is usually a sign that treatment is efficacious and fracture risk is reduced. It is important to ask patients whether they are taking their medications and to encourage continued and appropriate compliance with their osteoporosis therapies to reduce fracture risk. It is also important to review their risk factors and encourage appropriate calcium and vitamin D intakes, exercise, fall prevention and other lifestyle measures. Follow-Up: Consider a repeat BMD and Vertebral Fracture Assessment (VFA) exam in 2 years or sooner if medically necessary, to reassess this patient's status. Reported by: NAIMA on 06/04/2025 10:01:00 AM. Reviewed, dictated and finalized at location A.
--- OUTSIDE RECORDS SUMMARY | 2025-06-04 09:45 | XMS_ITS | Patient Health Record ---
Author Organization [facility] Address [address] [place] [address] Care Team Providers Care Professor Of Family Medicine Name Role Phone Shan Sampson MD Primary Care Provider Justus Hui Unavailable [phone] Santos Waters Unavailable [phone] Allergies Allergen (clinical drug ingredient) Drug/Non Drug Allergy documented on EMR Reaction Allergy Type Onset Date Status acetaminophen / codeine Acetaminophen-Codeine Unknown Drug Allergy 03/25/2024 Active Reason For Referral Reason TMS initial treatmen t 1 session tms 35 repetitive Diagnosis 1 Major depressive dis order, recurrent severe without psychotic features (F33.2) Referred Organization [facility] Referred Provider Santos Waters Referred Address [address],[place], [place],[address], Referred Provider Specialty Psychiatry Referral Priority Routine Medications Medication SIG (Take, Route, Frequency, Duration) Notes Start Date End Date Status Pravastatin Sodium 20 MG TAKE 1 TABLET N IGHTLY AT BEDTIME Oral; Duration: 90 Days Active Belsomra 10 MG 1 tablet at bedtime Orally Once a day; Duration: 90 days 05/15/2025 Active QUEtiapine Fumarate 100 MG 1 tablet at b edtime Orally Once a day; Duration: 90 days Active Desvenlafaxine Succinate ER 50 MG 1 tablet Orally Once a day; Duration: 90 days Active Metoprolol Succinate ER 50 MG TAKE 1 TABLET DAILY Oral; Duration: 90 Days Active Immunizations Vaccine Route Administration Date Status Comme nts Hep B, adult dosage Unknown 11/06/1999 Administered Influenza virus vaccine, quadrivalent (IIV4), split virus, 0.25 mL dosage Unknown 09/02/2015 Administered Influenza virus vaccine, quadrivalent (IIV4), split virus, 0.25 mL dosage Unknown 09/02/2016 Administered Influenza virus vaccine, quadrivalent (IIV4), split virus, 0.25 mL dosage Unknown 08/06/2018 Administered Influenza, high dose seasonal Unknown 11/21/2012 Admini stered Influenza, high dose seasonal Unknown 09/04/2018 Admini stered Influenza, high dose seasonal Unknown 07/12/2019 Admini stered Influenza, high-dose seasona l, quadrivalent, preservative free >65 yrs Unknown 07/06/2020 Administered Influenza, seasonal, injecta ble, preservative free, 3 yrs and above Unknown 10/04/2018 Administered Infuenza, trivalent, recombi nant, preservative free Unknown 01/05/2018 Administered Pfizer Biontech Covid-19 Vac cine 2nd dose Unknown 02/27/2021 Administered Pfizer [employer] Covid-19 Vac cine 2nd dose Unknown 03/27/2021 Administered Pfizer [employer]ion[employer] Covid-19 Vac cine 2nd dose Unknown 10/26/2021 Administered Pneumococcal conjugate PCV 13 Unknown 2011 Admini stered Pneumococcal conjugate PCV 13 Unknown 11/06/2016 Admini stered Pneumococcal polysaccharide PPV23 Unknown 11/21/2012 Ad ministered Zoster Unknown 07/12/2019 Administered Zoster Unknown 11/05/2019 Administered Social History Sex Assigned At : Social History Observation Description Sex Assigned At Female Problems Problem Type SNOMED Code ICD Code Onset Dates Problem Status W/U Status Risk Notes Problem Mild recurrent major depression (89337886) Major depressive disorder, recurrent, mild (F33.0) 03/25/20 24 Active confirmed Problem Severe recurrent major depression without psychotic features (24110036) Major depressive disorder, recurrent severe without psychotic features (F33.2) Active confirmed Problem Recurrent major depression in full remission (76659726) Major depressive disorder, recurrent, in full remission (F33.42) Active confirmed Problem Generalized anxiety disorder (90477985) Generalized anxiety disorder (F41.1) Active confirmed Problem Insomnia disorder related to another mental disorder (31811161) Insomnia due to other mental disorder (F51.05) Active confirmed Problem Attention deficit hyperactivity disorder (888539038) ADHD (attention deficit hyperactivity disorder), combined type (F90.2) Active confirmed Problem Mild cognitive disorder (158318479) Mild cognitive disorder (F09) Active confirmed Problem Mixed hyperlipidemia (507511983) Mixed hyperlipidemia (E78.2) 04/29/20 23 Active confirmed Problem Essential hypertension (22690946) Essential hypertension (I10) 01/24/20 23 Active confirmed Vital Signs Heart Rate 56 /min 05/15/2025 Height-cm 157.48 cm 05/15/2025 Blood pressure diastolic 72 mm Hg 05/15/2025 Weight-kg 63.5 kg 05/15/2025 Height 62.00 in 05/15/2025 Blood pressure systolic 126 mm Hg 05/15/2025 Weight 140 lbs 05/15/2025 BMI 25.6 kg/m2 05/15/2025 Encounters Encounter Location Date Provider Diagnosis [facility] [employer] [place] [id number] [facility] [address] [address] 06/05/2024 Jsutus Mike Generalized anxiety disorder F41.1 ; Major depressive disorder, recurrent, mild F33.0 and Other fatigue R53.83 [facility] [employer] [address] [address] 07/03/2024 Justus Mike Generalized anxiety disorder F41.1 ; Major depressive disorder, recurrent, mild F33.0 and Other fatigue R53.83 [facility] [employer] [address] [address] 07/30/2024 Justus Mike Generalized anxiety disorder F41.1 ; Other fatigue R53.83 and Major depressive disorder, recurrent, moderate F33.1 [facility] [employer] [address] [address] 08/07/2024 Justus Mike Generalized anxiety disorder F41.1 ; Major depressive disorder, recurrent severe without psychotic features F33.2 and Insomnia due to other mental disorder F51.05 [facility] [employer] [address] [address] 2024 Justus Mike Generalized anxiety disorder F41.1 ; Major depressive disorder, recurrent severe without psychotic features F33.2 and Insomnia due to other mental disorder F51.05 [facility] [employer] [address] [address] 08/27/2024 Justus Mike Generalized anxiety disorder F41.1 ; Major depressive disorder, recurrent severe without psychotic features F33.2 and Insomnia due to other mental disorder F51.05 [facility] [employer], [facility] [address] [place] [address] 09/24/2024 Justus Mike Generalized anxiety disorder F41.1 ; Major depressive disorder, recurrent severe without psychotic features F33.2 and Insomnia due to other mental disorder F51.05 [facility] [employer], [facility] [address] [place] [address] 10/10/2024 Justus Mike Generalized anxiety disorder F41.1 ; Major depressive disorder, recurrent severe without psychotic features F33.2 and Insomnia due to other mental disorder F51.05 [facility] [address] [place] [address] 10/22/2024 Justus Mike Generalized anxiety disorder F41.1 ; Major depressive disorder, recurrent severe without psychotic features F33.2 and Insomnia due to other mental disorder F51.05 [facility] [address] [place] [address] 10/25/2024 Santos Evelin Generalized anxiety disorder F41.1 ; Major depressive disorder, recurrent severe without psychotic features F33.2 and Insomnia due to other mental disorder F51.05 [facility] [address] [place] [address] 11/05/2024 Justus Mike Generalized anxiety disorder F41.1 ; Major depressive disorder, recurrent severe without psychotic features F33.2 and Insomnia due to other mental disorder F51.05 [facility] [employer], [facility] [address] [place] [address] 11/07/2024 Santos Evelin Major depressive disorder, recurrent severe without psychotic features F33.2 [facility] [employer], [facility] [address] [place] [address] 11/08/2024 Santos Evelin Major depressive disorder, recurrent severe without psychotic features F33.2 [facility] [place] [address] [place] [address] 11/13/2024 Santos Evelin Major depressive disorder, recurrent severe without psychotic features F33.2 [facility], [facility] [address] [place] [address] 11/14/2024 Santos Evelin Major depressive disorder, recurrent severe without psychotic features F33.2 [facility], [facility] [address] [place] [address] 11/15/2024 Santos Evelin Major depressive disorder, recurrent severe without psychotic features F33.2 [facility], [facility] [address] [place] [address] 11/18/2024 Santos Evelin Major depressive disorder, recurrent severe without psychotic features F33.2 [facility] [address] [place] [address] 11/18/2024 Santos Evelin Generalized anxiety disorder F41.1 ; Major depressive disorder, recurrent severe without psychotic features F33.2 ; Mixed hyperlipidemia E78.2 ; Essential hypertension I10 ; Insomnia due to other mental disorder F51.05 and Mild cognitive disorder F09 [facility] [address] [place] [address] 11/19/2024 Santos Evelin Major depressive disorder, recurrent severe without psychotic features F33.2 [facility] [address] [place] [address] 11/20/2024 Santos Evelin Major depressive disorder, recurrent severe without psychotic features F33.2 [facility] [address] [place] [address] 11/21/2024 Santos Evelin Major depressive disorder, recurrent severe without psychotic features F33.2 [facility], [facility] [address] [place] [address] 11/21/2024 Santos Evelin Mild cognitive disor fior F09 [facility] [address] [place] [address] 11/22/2024 Santos Evelin Major depressive disorder, recurrent severe without psychotic features F33.2 [facility], [facility] [address] [place] [address] 11/25/2024 Santos Evelin Major depressive disorder, recurrent severe without psychotic features F33.2 [facility], [facility] [address] [place] [address] 11/26/2024 Santos Evelin Major depressive disorder, recurrent severe without psychotic features F33.2 [facility], [facility] [address] [place] [address] 11/27/2024 Santos Evelin Major depressive disorder, recurrent severe without psychotic features F33.2 [facility], [facility] [address] [place] [address] 11/28/2024 Santos Evelin Major depressive disorder, recurrent severe without psychotic features F33.2 [facility], [facility] [address] [place] [address] 12/02/2024 Santos Evelin Major depressive disorder, recurrent severe without psychotic features F33.2 [facility], [facility] [address] [place] [address] 12/03/2024 Santos Evelin Major depressive disorder, recurrent severe without psychotic features F33.2 [facility], [facility] [address] [place] [address] 12/04/2024 Santos Evelin Major depressive disorder, recurrent severe without psychotic features F33.2 [facility], [facility] [address] [place] [address] 12/05/2024 Santos Evelin Generalized anxiety disorder F41.1 ; Major depressive disorder, recurrent severe without psychotic features F33.2 ; Mixed hyperlipidemia E78.2 ; Essential hypertension I10 ; Insomnia due to other mental disorder F51.05 and Mild cognitive disorder F09 [facility], [facility] [address] [place] [address] 12/05/2024 Santos Evelin Major depressive disorder, recurrent severe without psychotic features F33.2 [facility], [facility] [address] [place] [address] 12/06/2024 Santos Evelin Major depressive disorder, recurrent severe without psychotic features F33.2 [facility], [facility] [address] [place] [address] 12/09/2024 Santos Evelin [facility], [facility] [address] [place] [address] 12/10/2024 Santos Evelin Major depressive disorder, recurrent severe without psychotic features F33.2 [facility], [facility] [address] [place] [address] 12/11/2024 Santos Evelin Major depressive disorder, recurrent severe without psychotic features F33.2 [facility], [facility] [address] [place] [address] 12/12/2024 Santos Evelin Major depressive disorder, recurrent severe without psychotic features F33.2 [facility] [address] [place] [address] 12/16/2024 Santos Evelin Major depressive disorder, recurrent severe without psychotic features F33.2 [facility], [facility] [address] [place] [address] 12/17/2024 Santos Evelin Major depressive disorder, recurrent severe without psychotic features F33.2 [facility], [facility] [address] [place] [address] 12/18/2024 Santos Evelin Major depressive disorder, recurrent severe without psychotic features F33.2 [facility], [facility] [address] [place] [address] 12/19/2024 Santos Evelin Major depressive disorder, recurrent severe without psychotic features F33.2 [facility], [facility] [address] [place] [address] 12/20/2024 Santos Evelin Major depressive disorder, recurrent severe without psychotic features F33.2 [facility] [address] [place] [address] 12/23/2024 Santos Evelin Major depressive disorder, recurrent severe without psychotic features F33.2 [facility], [facility] [address] [place] [address] 12/25/2024 Santos Evelin Major depressive disorder, recurrent severe without psychotic features F33.2 [facility], [facility] [address] [place] [address] 12/27/2024 Santos Evelin Major depressive disorder, recurrent severe without psychotic features F33.2 [facility] [address] [place] [address] 12/31/2024 Santos Evelin Major depressive disorder, recurrent severe without psychotic features F33.2 [facility], [facility] [address] [facility] [address] [place] [address] 01/01/2025 Santos Evelin Major depressive disorder, recurrent severe without psychotic features F33.2 [facility] [address] [facility] [address] [place] [address] 01/03/2025 Santos Evelin Major depressive disorder, recurrent severe without psychotic features F33.2 [facility] [address] [facility] [address] [place] [address] 01/06/2025 Santos Evelin Major depressive disorder, recurrent severe without psychotic features F33.2 [facility] [address] [facility] [address] [place] [address] 01/08/2025 Santos Evelin Major depressive disorder, recurrent severe without psychotic features F33.2 [facility] [address] [facility] [address] [place] [address] 01/08/2025 Santos Evelin Benign essential HTN I10 ; Generalized anxiety disorder F41.1 ; Major depressive disorder, recurrent severe without psychotic features F33.2 ; Mixed hyperlipidemia E78.2 ; Essential hypertension I10 ; Insomnia due to other mental disorder F51.05 and Mild cognitive disorder F09 [facility] [address] [address] 01/13/2025 Santos Evelin Major depressive disorder, recurrent severe without psychotic features F33.2 [place] [address] [address] 01/15/2025 Santos Evelin Encounter for screen ing for cardiovascular disorders Z13.6 ; Encounter for screening for depression Z13.31 ; Benign essential HTN I10 ; Generalized anxiety disorder F41.1 ; Major depressive disorder, recurrent severe without psychotic features F33.2 ; Mixed hyperlipidemia E78.2 ; Essential hypertension I10 ; Insomnia due to other mental disorder F51.05 and Mild cognitive disorder F09 [facility] [address] [facility] [address] [place] [address] 02/12/2025 Justustiana Jenkinsa Major depressive disorder, recurrent, in full remission F33.42 ; Encounter for screening for depression Z13.31 ; Encounter for screening for cardiovascular disorders Z13.6 ; Generalized anxiety disorder F41.1 and Insomnia due to other mental disorder F51.05 [facility], [facility] [address] [place] [address] 05/15/2025 Justus Mike Major depressive disorder, recurrent, in full remission F33.42 ; Generalized anxiety disorder F41.1 and Insomnia due to other mental disorder F51.05 [facility], [facility] [address] [place] [address] 06/11/2024 Justus Mike [facility], [facility] [address] [place] [address] 06/11/2024 Justus Mike Generalized anxiety disorder F41.1 and Major depressive disorder, recurrent, moderate F33.1 [facility], [facility] [address] [place] [address] 07/05/2024 Justus Jenkinsa [facility], [facility] [address] [place] [address] 07/09/2024 Justus Leighoza Major depressive disorder, recurrent, moderate F33.1 [facility], [facility] [address] [place] [address] 07/09/2024 Justus Mike Major depressive disorder, recurrent, mild F33.0 [facility], [facility] [address] [place] [address] 07/30/2024 Justus Mike [facility], [facility] [address] [place] [address] 08/06/2024 Justus Leighoza [facility], [facility] [address] [place] [address] 09/03/2024 Justus Mike ADHD (attention defi cit hyperactivity disorder), combined type F90.2 [facility], [facility] [address] [place] [address] 09/10/2024 Justus Mike [facility], [facility] [address] [place] [address] 09/25/2024 Justus Jenkinsa [facility], [facility] [address] [place] [address] 10/16/2024 Justus Mike [facility], [facility] [address] [place] [address] 11/19/2024 Justus Mike Assessments Encounter Date Diagnosis (ICD Code) Assessment Notes Treatment Notes Treatment Clinical Notes Section Notes 06/05/2024 Major depressive disorder, recurrent, mild (ICD-10 - F33.0) I discussed several options including antipsychotic agents for the treatment. As we are choosing an antipsychotic agent for the treatment I educated the patient about the metabolic syndrome. I discussed with the patient the effect of addition of antipsychotic agent will increase the risk of metabolic syndrome, including but not limiting to x increase in blood sugar, x cholesterol levels and x developing of insulin resistance. x The importance of laboratory blood drawn were discussed with the patient. x The metabolic risk associated with the antipsychotic agent is a class associated risk factor. Anti-psychotic agents not only increase the risk of metabolic disorder, it also increase the risk of CVA and movement disorders and EPS among other. It was also advice to the patient that sheshould not stop the medication without my advice unless they are having intolerable side effects. 1. Generalized Anxiety Disorder (CORINA): - Patient reports increased anxiety in the last few days, with no identifiable triggers. Currently taking BuSpar 10 mg three times a day for anxiety. Plan: - Continue BuSpar 10 mg TID for anxiety. - Reassess the effectiveness of BuSpar at the next visit in one month. 2. Major Depressive Disorder (MDD): - Patient reports improvement in mood and energy after starting Abilify (aripiprazole) 2 mg, but has experienced increased anxiety in the last few days. Plan: - Increase Abilify (aripiprazole) to 5 mg daily for MDD. - Continue vortioxetine 40 mg once a day with food. - Reevaluate patient's response to the increased dose of Abilify at the next visit in one month. 3. Insomnia: - Patient reports difficulty staying asleep and shutting their mind off at night. Has sleep apnea and is awaiting a sleep study in November. Plan: - Encourage patient to follow up with their sleep study and consider using a CPAP machine if indicated. - Monitor sleep quality at the next visit in one month. 4. Social engagement and support: - Patient expresses a desire to find an outreach or volunteer opportunity to engage with others and contribute to their community. Plan: - Encourage patient to explore local food pantries, zoroastrianism organizations, or [employer] for volunteer opportunities. - Discuss patient's progress in finding social engagement at the next visit in one month. Follow-up: - Schedule a follow-up appointment in one month to reassess patient's anxiety, mood, sleep, and social engagement. 06/05/2024 Generalized anxiety disorder (ICD-10 - F41.1) I discussed several options including antipsychotic agents for the treatment. As we are choosing an antipsychotic agent for the treatment I educated the patient about the metabolic syndrome. I discussed with the patient the effect of addition of antipsychotic agent will increase the risk of metabolic syndrome, including but not limiting to x increase in blood sugar, x cholesterol levels and x developing of insulin resistance. x The importance of laboratory blood drawn were discussed with the patient. x The metabolic risk associated with the antipsychotic agent is a class associated risk factor. Anti-psychotic agents not only increase the risk of metabolic disorder, it also increase the risk of CVA and movement disorders and EPS among other. It was also advice to the patient that sheshould not stop the medication without my advice unless they are having intolerable side effects. 1. Generalized Anxiety Disorder (CORINA): - Patient reports increased anxiety in the last few days, with no identifiable triggers. Currently taking BuSpar 10 mg three times a day for anxiety. Plan: - Continue BuSpar 10 mg TID for anxiety. - Reassess the effectiveness of BuSpar at the next visit in one month. 2. Major Depressive Disorder (MDD): - Patient reports improvement in mood and energy after starting Abilify (aripiprazole) 2 mg, but has experienced increased anxiety in the last few days. Plan: - Increase Abilify (aripiprazole) to 5 mg daily for MDD. - Continue vortioxetine 40 mg once a day with food. - Reevaluate patient's response to the increased dose of Abilify at the next visit in one month. 3. Insomnia: - Patient reports difficulty staying asleep and shutting their mind off at night. Has sleep apnea and is awaiting a sleep study in November. Plan: - Encourage patient to follow up with their sleep study and consider using a CPAP machine if indicated. - Monitor sleep quality at the next visit in one month. 4. Social engagement and support: - Patient expresses a desire to find an outreach or volunteer opportunity to engage with others and contribute to their community. Plan: - Encourage patient to explore local food pantries, zoroastrianism organizations, or [employer] for volunteer opportunities. - Discuss patient's progress in finding social engagement at the next visit in one month. Follow-up: - Schedule a follow-up appointment in one month to reassess patient's anxiety, mood, sleep, and social engagement. 06/11/2024 Major depressive disorder, recurrent, moderate (ICD-10 - F33.1) 06/11/2024 Generalized anxiety disorder (ICD-10 - F41.1) 07/03/2024 Generalized anxiety disorder (ICD-10 - F41.1) buspirone 10mg tid 1. Major Depressive Disorder: - Patient reports persistent fatigue, occasional sadness, and anxiety. PHQ-9 score is 7, indicating mild depression. The patient has tried multiple medications with limited success. Plan: - Taper off Viibryd: Decrease to 20 mg daily for one week, then 10 mg daily for one week, and then discontinue. - Continue Abilify 5 mg daily for now. - Consider alternative treatment options such as Spravato (Esketamine) nasal spray if symptoms do not improve. Provide patient with information on Spravato. 2. Anxiety: - Patient reports worsening anxiety and shakiness. Plan: - Monitor response to tapering off Viibryd and continuation of Abilify. - Reevaluate the need for additional interventions at the next visit. 3. Hypertension: - Patient reports recent increase in blood pressure medication and elevated blood pressure readings. Plan: - Discontinuing Viibryd may help reduce blood pressure, as it has the potential to raise blood pressure. - Encourage patient to follow up with their primary care provider for blood pressure management. 4. Sleep Apnea: - Patient is in the process of obtaining a CPAP machine. Plan: - Encourage patient to use CPAP once obtained to improve sleep quality and potentially reduce fatigue. 5. Fatigue: - Persistent fatigue despite multiple medication trials. Plan: - Monitor response to tapering off Viibryd and continuation of Abilify. - Encourage patient to use CPAP once obtained to improve sleep quality. Follow-up in one month to evaluate the patient's response to medication changes and discuss alternative treatment options if necessary. 07/30/2024 Generalized anxiety disorder (ICD-10 - F41.1) buspirone 10mg tid SPRAVATO trademark is contraindicated in patients with: Aneurysmal vascular disease (including thoracic and abdominal aorta, No history intracranial and peripheral arterial vessels) or arteriovenous malformation No history History of intracerebral hemorrhage No history Hypersensitivity to esketamine, ketamine, or any of the ingredients No history 1. Major Depressive Disorder, recurrent, severe: - Patient reports worsening depression symptoms, including low mood, lack of interest, excessive sleep, and suicidal ideation. - Patient has tried multiple medications with limited success, including SSRIs, SNRIs, Abilify, and Auvelity. Plan: - Discontinue Abilify due to possible contribution to nervousness and shakiness. - Initiate lithium 150 mg twice a day for persistent depression. - Monitor patient's response to lithium and adjust dosage as needed. - Obtain prior authorization for Spravato (esketamine) nasal spray as a potential alternative treatment option. - Encourage the patient to seek counseling in conjunction with medication management for optimal results. 2. Anxiety: - Patient reports persistent anxiety, shakiness, and racing thoughts. Plan: - Continue buspirone for anxiety management. - Monitor patient's response to lithium and its potential impact on anxiety symptoms. 3. Insomnia: - Patient reports difficulty sleeping and excessive sleep. Plan: - Encourage the patient to maintain a consistent sleep schedule and practice good sleep hygiene. - Monitor patient's response to lithium and its potential impact on sleep patterns 5. Suicidal ideation: - Patient reports considering taking pain pills to end her life but has not acted on these thoughts due to previous promises made. Plan: - Closely monitor the patient's mental status and safety during follow-up visits. - Encourage the patient to seek counseling and establish a support system to help manage suicidal thoughts. 07/30/2024 Other fatigue (ICD-10 - R53.83) SPRAVATO trademark is contraindicated in patients with: Aneurysmal vascular disease (including thoracic and abdominal aorta, No history intracranial and peripheral arterial vessels) or arteriovenous malformation No history History of intracerebral hemorrhage No history Hypersensitivity to esketamine, ketamine, or any of the ingredients No history 1. Major Depressive Disorder, recurrent, severe: - Patient reports worsening depression symptoms, including low mood, lack of interest, excessive sleep, and suicidal ideation. - Patient has tried multiple medications with limited success, including SSRIs, SNRIs, Abilify, and Auvelity. Plan: - Discontinue Abilify due to possible contribution to nervousness and shakiness. - Initiate lithium 150 mg twice a day for persistent depression. - Monitor patient's response to lithium and adjust dosage as needed. - Obtain prior authorization for Spravato (esketamine) nasal spray as a potential alternative treatment option. - Encourage the patient to seek counseling in conjunction with medication management for optimal results. 2. Anxiety: - Patient reports persistent anxiety, shakiness, and racing thoughts. Plan: - Continue buspirone for anxiety management. - Monitor patient's response to lithium and its potential impact on anxiety symptoms. 3. Insomnia: - Patient reports difficulty sleeping and excessive sleep. Plan: - Encourage the patient to maintain a consistent sleep schedule and practice good sleep hygiene. - Monitor patient's response to lithium and its potential impact on sleep patterns 5. Suicidal ideation: - Patient reports considering taking pain pills to end her life but has not acted on these thoughts due to previous promises made. Plan: - Closely monitor the patient's mental status and safety during follow-up visits. - Encourage the patient to seek counseling and establish a support system to help manage suicidal thoughts. 08/07/2024 Major depressive disorder, recurrent severe without psychotic features (ICD-10 - F33.2) 1. Anxiety and shortness of breath: - Patient reports shortness of breath and difficulty breathing, which is likely due to anxiety. Labs, EKGs, and chest X-ray were performed at the emergency room with no significant findings. Plan: - Taper off buspirone as it does not appear to be effective - Monitor and reassess in one week. 2. Insomnia: - Patient reports difficulty sleeping and restlessness, which is a change from previous excessive sleepiness. Plan: - Start quetiapine 25 mg, one tablet at bedtime to help with sleep. - Reassess in one week. 3. Depression: - Patient reports feeling hopeless and wanting it to be over, but denies suicidal ideation or intent. Stopped taking Abilify as instructed. Plan: - Discontinue buspirone gradually (decrease to twice a day for three days, then once a day for three days, and then stop). - Start quetiapine 25 mg, one tablet at bedtime for depression management. - Reassess in one week. 4. Tremulousness: - Patient reports feeling shaky and tremulous, which has improved since stopping lithium. Plan: - Continue to monitor for tremulousness and reassess in one week. 5. Medication management: - Patient is currently taking Pravastatin, metoprolol, and buspirone. Plan: - Continue current medications and monitor for any side effects or interactions. Follow-up: - Schedule a follow-up appointment in one week to reassess symptoms and medication effectiveness. 08/07/2024 Generalized anxiety disorder (ICD-10 - F41.1) buspirone 10mg tid 1. Anxiety and shortness of breath: - Patient reports shortness of breath and difficulty breathing, which is likely due to anxiety. Labs, EKGs, and chest X-ray were performed at the emergency room with no significant findings. Plan: - Taper off buspirone as it does not appear to be effective - Monitor and reassess in one week. 2. Insomnia: - Patient reports difficulty sleeping and restlessness, which is a change from previous excessive sleepiness. Plan: - Start quetiapine 25 mg, one tablet at bedtime to help with sleep. - Reassess in one week. 3. Depression: - Patient reports feeling hopeless and wanting it to be over, but denies suicidal ideation or intent. Stopped taking Abilify as instructed. Plan: - Discontinue buspirone gradually (decrease to twice a day for three days, then once a day for three days, and then stop). - Start quetiapine 25 mg, one tablet at bedtime for depression management. - Reassess in one week. 4. Tremulousness: - Patient reports feeling shaky and tremulous, which has improved since stopping lithium. Plan: - Continue to monitor for tremulousness and reassess in one week. 5. Medication management: - Patient is currently taking Pravastatin, metoprolol, and buspirone. Plan: - Continue current medications and monitor for any side effects or interactions. Follow-up: - Schedule a follow-up appointment in one week to reassess symptoms and medication effectiveness. 07/09/2024 Major depressive disorder, recurrent, moderate (ICD-10 - F33.1) 07/09/2024 Major depressive disorder, recurrent, mild (ICD-10 - F33.0) 2024 Generalized anxiety disorder (ICD-10 - F41.1) improving 1. Anxiety: - Patient has discontinued Buspirone as per the previous plan. - Patient has started Quetiapine 25 mg at bedtime and reports improved sleep. - Patient is unsure about the improvement in anxiety levels. Plan: - Increase Quetiapine to 50 mg at bedtime (patient to take 2 of the 25 mg tablets they already have). - Reassess anxiety levels in one week. 2. Restlessness: - Patient reports ongoing restlessness. Plan: - Monitor the effect of increased Quetiapine dosage on restlessness during the next visit. 3. Hopelessness: - Patient reports a decrease in feelings of hopelessness. Plan: - Continue to monitor and address any ongoing concerns during follow-up visits. 4. Follow-up appointment: - Patient has a scheduled appointment on the . Plan: - Keep the existing appointment and reassess the patient's progress at that time. 08/27/2024 Generalized anxiety disorder (ICD-10 - F41.1) 1. Major Depressive Disorder, treatment-resistan t: - Continue quetiapine 50 mg at bedtime - Start desvenlafaxine (Pristiq) 50 mg daily - Perform GeneSight pharmacogenetic testing to guide medication choices and dosages Plan: - Consider Spravato (esketamine) nasal spray treatment; patient to call if they decide to proceed - Follow up in two weeks to assess response to desvenlafaxine and discuss GeneSight results 2. Excessive daytime sleepiness: - Continue using CPAP machine for sleep apnea management Plan: - Monitor response to desvenlafaxine, as it may have a more energizing effect 3. Cognitive concerns: Plan: - Reassess cognitive function after improvement in depression symptoms, as depression can interfere with accurate assessment - Encourage patient to discuss cognitive concerns with their primary care provider for further evaluation if needed 09/24/2024 Generalized anxiety disorder (ICD-10 - F41.1) persistent, Learning About Transcranial Magnetic Stimulation (TMS) material was published 1. Major Depressive Disorder, treatment-resistan t: - Increase venlafaxine (Pristiq) to 100 mg daily - Increase quetiapine to 100 mg daily Plan: - Reevaluate patient in two weeks - Initiate paperwork for Transcranial Magnetic Stimulation (TMS) authorization - Encourage patient to consider therapy 2. Insomnia: - Increase quetiapine to 100 mg daily, as it may also help with sleep Plan: - Reevaluate sleep patterns in two weeks - Encourage patient to maintain good sleep hygiene 3. Anxiety: Plan: - Continue monitoring anxiety levels during follow-up visits - Encourage patient to consider therapy for anxiety management 4. TMS Authorization: Plan: - Have patient complete necessary paperwork for TMS authorization - Submit paperwork to insurance for approval - Discuss TMS treatment plan with the patient once approval is obtained 10/10/2024 Generalized anxiety disorder (ICD-10 - F41.1) persistent, Learning About Transcranial Magnetic Stimulation (TMS) material was published 1. Major Depressive Disorder, treatment-resistan t: - Increase venlafaxine (Pristiq) to 100 mg daily - Increase quetiapine to 100 mg daily Plan: - Reevaluate patient in two weeks - Initiate paperwork for Transcranial Magnetic Stimulation (TMS) authorization - Encourage patient to consider therapy 2. Insomnia: - Increase quetiapine to 100 mg daily, as it may also help with sleep Plan: - Reevaluate sleep patterns in two weeks - Encourage patient to maintain good sleep hygiene 3. Anxiety: Plan: - Continue monitoring anxiety levels during follow-up visits - Encourage patient to consider therapy for anxiety management 4. TMS Authorization: Plan: - Have patient complete necessary paperwork for TMS authorization - Submit paperwork to insurance for approval - Discuss TMS treatment plan with the patient once approval is obtained 1. Major Depressive Disorder, treatment-resistan t: - Continue Pristiq at a reduced dose of 50 mg daily - Increase quetiapine (Seroquel) to 200 mg at bedtime for depression Plan: - Monitor response to medication adjustments in 2 weeks - Pending insurance approval, initiate Transcranial Magnetic Stimulation (TMS) therapy - Reconsider Spravato nasal spray or Electroconvulsive Therapy (ECT) if TMS is not effective or feasible 2. Persistent tremors: Plan: - Continue monitoring tremors and their impact on daily functioning - Encourage discussion with primary care physician to rule out any underlying medical causes 3. Insomnia: - Increase quetiapine (Seroquel) to 200 mg at bedtime to potentially improve sleep Plan: - Monitor sleep patterns and quality after medication adjustment in 2 weeks 4. Decreased appetite and weight loss: Plan: - Encourage regular meals and adequate nutrition - Monitor weight and appetite changes during follow-up visits 5. Anxiety: Plan: - Monitor anxiety levels during follow-up visits - Consider referral to therapy or counseling if anxiety persists or worsens Follow-up: - Schedule follow-up in 2 weeks or sooner if the patient starts TMS therapy. 10/22/2024 Generalized anxiety disorder (ICD-10 - F41.1) persistent, Learning About Transcranial Magnetic Stimulation (TMS) material was published 1. Major Depressive Disorder: - TMS therapy approved by insurance. - Patient currently on desvenlafaxine 50 mg daily. Plan: - Schedule patient with Dr. Waters for consent and initiation of TMS treatment. - Continue desvenlafaxine 50 mg daily. - Encourage patient to consider counseling to address emotional processing and social initiation. 2. Tremors and cognitive issues: Plan: - Consult with primary care provider for further investigation. - Monitor patient's ability to drive and ensure safety. 3. Medication side effects (quetiapine): Plan: - Decrease quetiapine to 100 mg at bedtime. - Reassess cognitive improvement in 2 weeks. - Consider alternative medications if necessary (e.g., Abilify, lithium). 4. Sleep and appetite: Plan: - Continue monitoring sleep and appetite improvements with quetiapine dose reduction. 5. Transportation for TMS therapy: Plan: - Explore options for affordable transportation services for daily TMS appointments. - Coordinate with patient's support system for assistance if possible. 6. Follow-up: - Schedule follow-up appointment in 2 weeks to assess medication changes and cognitive improvement. - Ensure patient is scheduled with Dr. Waters for TMS therapy initiation. 10/25/2024 Generalized anxiety disorder (ICD-10 - F41.1) persistent, Learning About Transcranial Magnetic Stimulation (TMS) material was published Major Depressive Disorder - Plan: - Proceed with TMS treatment, consisting of 36 sessions. One session per day for five weeks, followed by tapering off during the last six sessions. - Monitor the patient's response to treatment and adjust as necessary. - Encourage proper sleep hygiene and medication adherence to minimize seizure risk. - Inform patient that effects may be noticeable within 4 treatments, but typically take 3 to 4 weeks. Sleep - Plan: - Continue to monitor sleep quality throughout TMS treatment. - Consider postponing TMS treatment if patient sleeps less than four hours per night. Seizure Risk - Plan: - Educate patient on importance of medication adherence and proper sleep hygiene to minimize seizure risk. - Instruct patient to inform treatment team if any issues arise that may increase seizure risk. Counseling - Plan: - Reevaluate patient's interest in counseling throughout TMS treatment. - Offer counseling resources and discuss potential benefits of therapy in conjunction with TMS. Consent for TMS Treatment - Plan: - Have airframe technical officer obtain informed consent from patient before initiating TMS treatment. - Find alternative method for obtaining consent if airframe technical officer is unavailable. Patient Education - Plan: - Provide detailed information about TMS procedure, including: - Use of helmet with magnetic coil - Sensation of tapping on the head - Duration of each session (about 19 minutes with 2-second pulses and 20-second breaks) 11/07/2024 Major depressive disorder, recurrent severe without psychotic features (ICD-10 - F33.2) 11/08/2024 Major depressive disorder, recurrent severe without psychotic features (ICD-10 - F33.2) 11/13/2024 Major depressive disorder, recurrent severe without psychotic features (ICD-10 - F33.2) 11/14/2024 Major depressive disorder, recurrent severe without psychotic features (ICD-10 - F33.2) 11/15/2024 Major depressive disorder, recurrent severe without psychotic features (ICD-10 - F33.2) 11/18/2024 Major depressive disorder, recurrent severe without psychotic features (ICD-10 - F33.2) 11/18/2024 Mixed hyperlipidemia (ICD-10 - E78.2) Major Depressive Disorder - Assessment: Patient reports a 20% improvement in mood with TMS treatment. PHQ9 score has decreased from 18 to 9 since October 25, indicating almost 50% improvement. Patient reports feeling better and not as down as before. - Plan: - Continue TMS treatment as scheduled. Patient has completed 6 TMS sessions so far. - Continue desvenlafaxine 50 mg in the morning. Insomnia - Assessment: Patient reports difficulty falling asleep and staying asleep. - Plan: - Continue quetiapine at night. - Add Belsomra 10 mg at bedtime, with the understanding that it may take about a week to start working. - Prescriptions sent to [facility] pharmacy. Anxiety - Assessment: Patient reports ongoing anxiety, describing feeling nervous about things. - Plan: - Continue to monitor and address anxiety during TMS treatment and follow-up visits. Memory and Cognitive Function - Assessment: Patient reports improved concentration and memory with treatment. - Plan: - Schedule baseline memory testing, including paper-pencil and computer testing. - Reassess in 6 months to monitor for any decline or problem areas. - Consider interventions such as cognitive exercises or medications if memory issues are identified. General Health - Assessment: Patient denies any current medical problems. Patient does not smoke or drink. - Plan: - Encourage the patient to maintain a healthy lifestyle, including regular exercise and a balanced diet. Follow-up - Plan: - Schedule a follow-up appointment to assess the patient's progress with TMS treatment, insomnia, anxiety, and memory testing results. 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 PHQ9 score has decreased from 18 to 9 since October 25, indicating almost 50% improvement. Patient reports feeling better and not as down as before. - Plan: - Continue TMS treatment as scheduled. Patient has completed 6 TMS sessions so far. - Continue desvenlafaxine 50 mg in the morning. Insomnia - Assessment: Patient reports difficulty falling asleep and staying asleep. - Plan: - Continue quetiapine at night. - Add Belsomra 10 mg at bedtime, with the understanding that it may take about a week to start working. - Prescriptions sent to [facility] pharmacy. Anxiety - Assessment: Patient reports ongoing anxiety, describing feeling nervous about things. - Plan: - Continue to monitor and address anxiety during TMS treatment and follow-up visits. Memory and Cognitive Function - Assessment: Patient reports improved concentration and memory with treatment. - Plan: - Schedule baseline memory testing, including paper-pencil and computer testing. - Reassess in 6 months to monitor for any decline or problem areas. - Consider interventions such as cognitive exercises or medications if memory issues are identified. General Health - Assessment: Patient denies any current medical problems. Patient does not smoke or drink. - Plan: - Encourage the patient to maintain a healthy lifestyle, including regular exercise and a balanced diet. Follow-up - Plan: - Schedule a follow-up appointment to assess the patient's progress with TMS treatment, insomnia, anxiety, and memory testing results. 11/18/2024 Generalized anxiety disorder (ICD-10 - F41.1) persistent, Learning About Transcranial Magnetic Stimulation (TMS) material was published Major Depressive Disorder - Assessment: Patient reports a 20% improvement in mood with TMS treatment. PHQ9 score has decreased from 18 to 9 since October 25, indicating almost 50% improvement. Patient reports feeling better and not as down as before. - Plan: - Continue TMS treatment as scheduled. Patient has completed 6 TMS sessions so far. - Continue desvenlafaxine 50 mg in the morning. Insomnia - Assessment: Patient reports difficulty falling asleep and staying asleep. - Plan: - Continue quetiapine at night. - Add Belsomra 10 mg at bedtime, with the understanding that it may take about a week to start working. - Prescriptions sent to [facility] pharmacy. Anxiety - Assessment: Patient reports ongoing anxiety, describing feeling nervous about things. - Plan: - Continue to monitor and address anxiety during TMS treatment and follow-up visits. Memory and Cognitive Function - Assessment: Patient reports improved concentration and memory with treatment. - Plan: - Schedule baseline memory testing, including paper-pencil and computer testing. - Reassess in 6 months to monitor for any decline or problem areas. - Consider interventions such as cognitive exercises or medications if memory issues are identified. General Health - Assessment: Patient denies any current medical problems. Patient does not smoke or drink. - Plan: - Encourage the patient to maintain a healthy lifestyle, including regular exercise and a balanced diet. Follow-up - Plan: - Schedule a follow-up appointment to assess the patient's progress with TMS treatment, insomnia, anxiety, and memory testing results. 11/19/2024 Major depressive disorder, recurrent severe without psychotic features (ICD-10 - F33.2) 11/20/2024 Major depressive disorder, recurrent severe without psychotic features (ICD-10 - F33.2) 11/21/2024 Major depressive disorder, recurrent severe without psychotic features (ICD-10 - F33.2) 11/21/2024 Mild cognitive disorder (ICD-10 - F09) 11/22/2024 Major depressive disorder, recurrent severe without psychotic features (ICD-10 - F33.2) 11/25/2024 Major depressive disorder, recurrent severe without psychotic features (ICD-10 - F33.2) 11/26/2024 Major depressive disorder, recurrent severe without psychotic features (ICD-10 - F33.2) 11/27/2024 Major depressive disorder, recurrent severe without psychotic features (ICD-10 - F33.2) 11/28/2024 Major depressive disorder, recurrent severe without psychotic features (ICD-10 - F33.2) 12/02/2024 Major depressive disorder, recurrent severe without psychotic features (ICD-10 - F33.2) 12/03/2024 Major depressive disorder, recurrent severe without psychotic features (ICD-10 - F33.2) 12/04/2024 Major depressive disorder, recurrent severe without psychotic features (ICD-10 - F33.2) 12/05/2024 Major depressive disorder, recurrent severe without psychotic features (ICD-10 - F33.2) 12/06/2024 Major depressive disorder, recurrent severe without psychotic features (ICD-10 - F33.2) 12/10/2024 Major depressive disorder, recurrent severe without psychotic features (ICD-10 - F33.2) 12/11/2024 Major depressive disorder, recurrent severe without psychotic features (ICD-10 - F33.2) 12/12/2024 Major depressive disorder, recurrent severe without psychotic features (ICD-10 - F33.2) 12/16/2024 Major depressive disorder, recurrent severe without psychotic features (ICD-10 - F33.2) 12/17/2024 Major depressive disorder, recurrent severe without psychotic features (ICD-10 - F33.2) 12/18/2024 Major depressive disorder, recurrent severe without psychotic features (ICD-10 - F33.2) 12/19/2024 Major depressive disorder, recurrent severe without psychotic features (ICD-10 - F33.2) 12/20/2024 Major depressive disorder, recurrent severe without psychotic features (ICD-10 - F33.2) 12/23/2024 Major depressive disorder, recurrent severe without psychotic features (ICD-10 - F33.2) 12/25/2024 Major depressive disorder, recurrent severe without psychotic features (ICD-10 - F33.2) 12/27/2024 Major depressive disorder, recurrent severe without psychotic features (ICD-10 - F33.2) 12/31/2024 Major depressive disorder, recurrent severe without psychotic features (ICD-10 - F33.2) 01/01/2025 Major depressive disorder, recurrent severe without psychotic features (ICD-10 - F33.2) 01/03/2025 Major depressive disorder, recurrent severe without psychotic features (ICD-10 - F33.2) 01/06/2025 Major depressive disorder, recurrent severe without psychotic features (ICD-10 - F33.2) 01/08/2025 Major depressive disorder, recurrent severe without psychotic features (ICD-10 - F33.2) 11/05/2024 Generalized anxiety disorder (ICD-10 - F41.1) persistent 1. Major Depressive Disorder: - Patient reports no significant improvement in mood and continues to experience discouragement. Plan: - Continue desvenlafaxine 50 mg daily. - Monitor for any changes in mood during TMS treatment. 2. Insomnia: - Patient reports worsened sleep since decreasing quetiapine to 100 mg. Plan: - Maintain quetiapine at 100 mg daily to balance sleep and cognitive side effects. - Reassess sleep quality after TMS treatment. 3. Cognitive fog: - Patient reports some improvement in cognitive fog since decreasing quetiapine. Plan: - Continue quetiapine at 100 mg daily. - Monitor for any changes in cognitive function during TMS treatment. 4. Persistent tremors: - Patient reports ongoing tremors, regardless of medication changes. Plan: - Patient to follow up with primary care physician for further evaluation and possible referral to neurology. 5. TMS treatment: - Patient scheduled to start TMS treatment with Dr. Waters. Plan: - Complete 36 TMS sessions as prescribed. - Patient to follow up after TMS treatment for reassessment of mood, sleep, and cognitive function. 6. Medication refills: Plan: - Refill prescriptions for quetiapine 100 mg and desvenlafaxine 50 mg. 11/18/2024 Essential hypertension (ICD-10 - I10) Major Depressive Disorder - Assessment: Patient reports a 20% improvement in mood with TMS treatment. PHQ9 score has decreased from 18 to 9 since October 25, indicating almost 50% improvement. Patient reports feeling better and not as down as before. - Plan: - Continue TMS treatment as scheduled. Patient has completed 6 TMS sessions so far. - Continue desvenlafaxine 50 mg in the morning. Insomnia - Assessment: Patient reports difficulty falling asleep and staying asleep. - Plan: - Continue quetiapine at night. - Add Belsomra 10 mg at bedtime, with the understanding that it may take about a week to start working. - Prescriptions sent to [facility] pharmacy. Anxiety - Assessment: Patient reports ongoing anxiety, describing feeling nervous about things. - Plan: - Continue to monitor and address anxiety during TMS treatment and follow-up visits. Memory and Cognitive Function - Assessment: Patient reports improved concentration and memory with treatment. - Plan: - Schedule baseline memory testing, including paper-pencil and computer testing. - Reassess in 6 months to monitor for any decline or problem areas. - Consider interventions such as cognitive exercises or medications if memory issues are identified. General Health - Assessment: Patient denies any current medical problems. Patient does not smoke or drink. - Plan: - Encourage the patient to maintain a healthy lifestyle, including regular exercise and a balanced diet. Follow-up - Plan: - Schedule a follow-up appointment to assess the patient's progress with TMS treatment, insomnia, anxiety, and memory testing results. 12/05/2024 Generalized anxiety disorder (ICD-10 - F41.1) persistent, Learning About Transcranial Magnetic Stimulation (TMS) material was published 01/08/2025 Benign essential HTN (ICD-10 - I10) 01/13/2025 Major depressive disorder, recurrent severe without psychotic features (ICD-10 - F33.2) 01/15/2025 Encounter for screening for cardiovascular disorders (ICD-10 - Z13.6) 02/12/2025 Major depressive disorder, recurrent, in full remission (ICD-10 - F33.42) 05/15/2025 Major depressive disorder, recurrent, in full remission (ICD-10 - F33.42) 05/15/2025 Generalized anxiety disorder (ICD-10 - F41.1) stable 02/12/2025 Encounter for screening for depression (ICD-10 - Z13.31) 01/15/2025 Encounter for screening for depression (ICD-10 - Z13.31) 01/08/2025 Generalized anxiety disorder (ICD-10 - F41.1) persistent, Learning About Transcranial Magnetic Stimulation (TMS) material was published 11/05/2024 Major depressive disorder, recurrent severe without psychotic features (ICD-10 - F33.2) scheduled to start TMS 1. Major Depressive Disorder: - Patient reports no significant improvement in mood and continues to experience discouragement. Plan: - Continue desvenlafaxine 50 mg daily. - Monitor for any changes in mood during TMS treatment. 2. Insomnia: - Patient reports worsened sleep since decreasing quetiapine to 100 mg. Plan: - Maintain quetiapine at 100 mg daily to balance sleep and cognitive side effects. - Reassess sleep quality after TMS treatment. 3. Cognitive fog: - Patient reports some improvement in cognitive fog since decreasing quetiapine. Plan: - Continue quetiapine at 100 mg daily. - Monitor for any changes in cognitive function during TMS treatment. 4. Persistent tremors: - Patient reports ongoing tremors, regardless of medication changes. Plan: - Patient to follow up with primary care physician for further evaluation and possible referral to neurology. 5. TMS treatment: - Patient scheduled to start TMS treatment with Dr. Waters. Plan: - Complete 36 TMS sessions as prescribed. - Patient to follow up after TMS treatment for reassessment of mood, sleep, and cognitive function. 6. Medication refills: Plan: - Refill prescriptions for quetiapine 100 mg and desvenlafaxine 50 mg. 12/05/2024 Major depressive disorder, recurrent severe without psychotic features (ICD-10 - F33.2) 11/18/2024 Insomnia due to other mental disorder (ICD-10 - F51.05) PERSISTS Major Depressive Disorder - Assessment: Patient reports a 20% improvement in mood with TMS treatment. PHQ9 score has decreased from 18 to 9 since October 25, indicating almost 50% improvement. Patient reports feeling better and not as down as before. - Plan: - Continue TMS treatment as scheduled. Patient has completed 6 TMS sessions so far. - Continue desvenlafaxine 50 mg in the morning. Insomnia - Assessment: Patient reports difficulty falling asleep and staying asleep. - Plan: - Continue quetiapine at night. - Add Belsomra 10 mg at bedtime, with the understanding that it may take about a week to start working. - Prescriptions sent to [facility] pharmacy. Anxiety - Assessment: Patient reports ongoing anxiety, describing feeling nervous about things. - Plan: - Continue to monitor and address anxiety during TMS treatment and follow-up visits. Memory and Cognitive Function - Assessment: Patient reports improved concentration and memory with treatment. - Plan: - Schedule baseline memory testing, including paper-pencil and computer testing. - Reassess in 6 months to monitor for any decline or problem areas. - Consider interventions such as cognitive exercises or medications if memory issues are identified. General Health - Assessment: Patient denies any current medical problems. Patient does not smoke or drink. - Plan: - Encourage the patient to maintain a healthy lifestyle, including regular exercise and a balanced diet. Follow-up - Plan: - Schedule a follow-up appointment to assess the patient's progress with TMS treatment, insomnia, anxiety, and memory testing results. 10/22/2024 Major depressive disorder, recurrent severe without psychotic features (ICD-10 - F33.2) 1. Major Depressive Disorder: - TMS therapy approved by insurance. - Patient currently on desvenlafaxine 50 mg daily. Plan: - Schedule patient with Dr. Waters for consent and initiation of TMS treatment. - Continue desvenlafaxine 50 mg daily. - Encourage patient to consider counseling to address emotional processing and social initiation. 2. Tremors and cognitive issues: Plan: - Consult with primary care provider for further investigation. - Monitor patient's ability to drive and ensure safety. 3. Medication side effects (quetiapine): Plan: - Decrease quetiapine to 100 mg at bedtime. - Reassess cognitive improvement in 2 weeks. - Consider alternative medications if necessary (e.g., Abilify, lithium). 4. Sleep and appetite: Plan: - Continue monitoring sleep and appetite improvements with quetiapine dose reduction. 5. Transportation for TMS therapy: Plan: - Explore options for affordable transportation services for daily TMS appointments. - Coordinate with patient's support system for assistance if possible. 6. Follow-up: - Schedule follow-up appointment in 2 weeks to assess medication changes and cognitive improvement. - Ensure patient is scheduled with Dr. Waters for TMS therapy initiation. 10/25/2024 Major depressive disorder, recurrent severe without psychotic features (ICD-10 - F33.2) Major Depressive Disorder - Plan: - Proceed with TMS treatment, consisting of 36 sessions. One session per day for five weeks, followed by tapering off during the last six sessions. - Monitor the patient's response to treatment and adjust as necessary. - Encourage proper sleep hygiene and medication adherence to minimize seizure risk. - Inform patient that effects may be noticeable within 4 treatments, but typically take 3 to 4 weeks. Sleep - Plan: - Continue to monitor sleep quality throughout TMS treatment. - Consider postponing TMS treatment if patient sleeps less than four hours per night. Seizure Risk - Plan: - Educate patient on importance of medication adherence and proper sleep hygiene to minimize seizure risk. - Instruct patient to inform treatment team if any issues arise that may increase seizure risk. Counseling - Plan: - Reevaluate patient's interest in counseling throughout TMS treatment. - Offer counseling resources and discuss potential benefits of therapy in conjunction with TMS. Consent for TMS Treatment - Plan: - Have airframe technical officer obtain informed consent from patient before initiating TMS treatment. - Find alternative method for obtaining consent if airframe technical officer is unavailable. Patient Education - Plan: - Provide detailed information about TMS procedure, including: - Use of helmet with magnetic coil - Sensation of tapping on the head - Duration of each session (about 19 minutes with 2-second pulses and 20-second breaks) 08/27/2024 Major depressive disorder, recurrent severe without psychotic features (ICD-10 - F33.2) 1. Major Depressive Disorder, treatment-resistan t: - Continue quetiapine 50 mg at bedtime - Start desvenlafaxine (Pristiq) 50 mg daily - Perform GeneSight pharmacogenetic testing to guide medication choices and dosages Plan: - Consider Spravato (esketamine) nasal spray treatment; patient to call if they decide to proceed - Follow up in two weeks to assess response to desvenlafaxine and discuss GeneSight results 2. Excessive daytime sleepiness: - Continue using CPAP machine for sleep apnea management Plan: - Monitor response to desvenlafaxine, as it may have a more energizing effect 3. Cognitive concerns: Plan: - Reassess cognitive function after improvement in depression symptoms, as depression can interfere with accurate assessment - Encourage patient to discuss cognitive concerns with their primary care provider for further evaluation if needed 10/10/2024 Major depressive disorder, recurrent severe without psychotic features (ICD-10 - F33.2) 1. Major Depressive Disorder, treatment-resistan t: - Increase venlafaxine (Pristiq) to 100 mg daily - Increase quetiapine to 100 mg daily Plan: - Reevaluate patient in two weeks - Initiate paperwork for Transcranial Magnetic Stimulation (TMS) authorization - Encourage patient to consider therapy 2. Insomnia: - Increase quetiapine to 100 mg daily, as it may also help with sleep Plan: - Reevaluate sleep patterns in two weeks - Encourage patient to maintain good sleep hygiene 3. Anxiety: Plan: - Continue monitoring anxiety levels during follow-up visits - Encourage patient to consider therapy for anxiety management 4. TMS Authorization: Plan: - Have patient complete necessary paperwork for TMS authorization - Submit paperwork to insurance for approval - Discuss TMS treatment plan with the patient once approval is obtained 1. Major Depressive Disorder, treatment-resistan t: - Continue Pristiq at a reduced dose of 50 mg daily - Increase quetiapine (Seroquel) to 200 mg at bedtime for depression Plan: - Monitor response to medication adjustments in 2 weeks - Pending insurance approval, initiate Transcranial Magnetic Stimulation (TMS) therapy - Reconsider Spravato nasal spray or Electroconvulsive Therapy (ECT) if TMS is not effective or feasible 2. Persistent tremors: Plan: - Continue monitoring tremors and their impact on daily functioning - Encourage discussion with primary care physician to rule out any underlying medical causes 3. Insomnia: - Increase quetiapine (Seroquel) to 200 mg at bedtime to potentially improve sleep Plan: - Monitor sleep patterns and quality after medication adjustment in 2 weeks 4. Decreased appetite and weight loss: Plan: - Encourage regular meals and adequate nutrition - Monitor weight and appetite changes during follow-up visits 5. Anxiety: Plan: - Monitor anxiety levels during follow-up visits - Consider referral to therapy or counseling if anxiety persists or worsens Follow-up: - Schedule follow-up in 2 weeks or sooner if the patient starts TMS therapy. 09/03/2024 ADHD (attention deficit hyperactivity disorder), combined type (ICD-10 - F90.2) Electronic Prior Authorization was requested for Desvenlafaxine ER 50 MG Tablet Extended Release 24 Hour. Provider can order medication once approval received. 09/24/2024 Major depressive disorder, recurrent severe without psychotic features (ICD-10 - F33.2) 1. Major Depressive Disorder, treatment-resistan t: - Increase venlafaxine (Pristiq) to 100 mg daily - Increase quetiapine to 100 mg daily Plan: - Reevaluate patient in two weeks - Initiate paperwork for Transcranial Magnetic Stimulation (TMS) authorization - Encourage patient to consider therapy 2. Insomnia: - Increase quetiapine to 100 mg daily, as it may also help with sleep Plan: - Reevaluate sleep patterns in two weeks - Encourage patient to maintain good sleep hygiene 3. Anxiety: Plan: - Continue monitoring anxiety levels during follow-up visits - Encourage patient to consider therapy for anxiety management 4. TMS Authorization: Plan: - Have patient complete necessary paperwork for TMS authorization - Submit paperwork to insurance for approval - Discuss TMS treatment plan with the patient once approval is obtained 07/30/2024 Major depressive disorder, recurrent, moderate (ICD-10 - F33.1) do Spravato [place] [employer] trademark is contraindicated in patients with: Aneurysmal vascular disease (including thoracic and abdominal aorta, No history intracranial and peripheral arterial vessels) or arteriovenous malformation No history History of intracerebral hemorrhage No history Hypersensitivity to esketamine, ketamine, or any of the ingredients No history 1. Major Depressive Disorder, recurrent, severe: - Patient reports worsening depression symptoms, including low mood, lack of interest, excessive sleep, and suicidal ideation. - Patient has tried multiple medications with limited success, including SSRIs, SNRIs, Abilify, and Auvelity. Plan: - Discontinue Abilify due to possible contribution to nervousness and shakiness. - Initiate lithium 150 mg twice a day for persistent depression. - Monitor patient's response to lithium and adjust dosage as needed. - Obtain prior authorization for Spravato (esketamine) nasal spray as a potential alternative treatment option. - Encourage the patient to seek counseling in conjunction with medication management for optimal results. 2. Anxiety: - Patient reports persistent anxiety, shakiness, and racing thoughts. Plan: - Continue buspirone for anxiety management. - Monitor patient's response to lithium and its potential impact on anxiety symptoms. 3. Insomnia: - Patient reports difficulty sleeping and excessive sleep. Plan: - Encourage the patient to maintain a consistent sleep schedule and practice good sleep hygiene. - Monitor patient's response to lithium and its potential impact on sleep patterns 5. Suicidal ideation: - Patient reports considering taking pain pills to end her life but has not acted on these thoughts due to previous promises made. Plan: - Closely monitor the patient's mental status and safety during follow-up visits. - Encourage the patient to seek counseling and establish a support system to help manage suicidal thoughts. 08/07/2024 Insomnia due to other mental disorder (ICD-10 - F51.05) start quetiapine 1. Anxiety and shortness of breath: - Patient reports shortness of breath and difficulty breathing, which is likely due to anxiety. Labs, EKGs, and chest X-ray were performed at the emergency room with no significant findings. Plan: - Taper off buspirone as it does not appear to be effective - Monitor and reassess in one week. 2. Insomnia: - Patient reports difficulty sleeping and restlessness, which is a change from previous excessive sleepiness. Plan: - Start quetiapine 25 mg, one tablet at bedtime to help with sleep. - Reassess in one week. 3. Depression: - Patient reports feeling hopeless and wanting it to be over, but denies suicidal ideation or intent. Stopped taking Abilify as instructed. Plan: - Discontinue buspirone gradually (decrease to twice a day for three days, then once a day for three days, and then stop). - Start quetiapine 25 mg, one tablet at bedtime for depression management. - Reassess in one week. 4. Tremulousness: - Patient reports feeling shaky and tremulous, which has improved since stopping lithium. Plan: - Continue to monitor for tremulousness and reassess in one week. 5. Medication management: - Patient is currently taking Pravastatin, metoprolol, and buspirone. Plan: - Continue current medications and monitor for any side effects or interactions. Follow-up: - Schedule a follow-up appointment in one week to reassess symptoms and medication effectiveness. 2024 Major depressive disorder, recurrent severe without psychotic features (ICD-10 - F33.2) 1. Anxiety: - Patient has discontinued Buspirone as per the previous plan. - Patient has started Quetiapine 25 mg at bedtime and reports improved sleep. - Patient is unsure about the improvement in anxiety levels. Plan: - Increase Quetiapine to 50 mg at bedtime (patient to take 2 of the 25 mg tablets they already have). - Reassess anxiety levels in one week. 2. Restlessness: - Patient reports ongoing restlessness. Plan: - Monitor the effect of increased Quetiapine dosage on restlessness during the next visit. 3. Hopelessness: - Patient reports a decrease in feelings of hopelessness. Plan: - Continue to monitor and address any ongoing concerns during follow-up visits. 4. Follow-up appointment: - Patient has a scheduled appointment on the . Plan: - Keep the existing appointment and reassess the patient's progress at that time. 07/03/2024 Major depressive disorder, recurrent, mild (ICD-10 - F33.0) 1. Major Depressive Disorder: - Patient reports persistent fatigue, occasional sadness, and anxiety. PHQ-9 score is 7, indicating mild depression. The patient has tried multiple medications with limited success. Plan: - Taper off Viibryd: Decrease to 20 mg daily for one week, then 10 mg daily for one week, and then discontinue. - Continue Abilify 5 mg daily for now. - Consider alternative treatment options such as Spravato (Esketamine) nasal spray if symptoms do not improve. Provide patient with information on Spravato. 2. Anxiety: - Patient reports worsening anxiety and shakiness. Plan: - Monitor response to tapering off Viibryd and continuation of Abilify. - Reevaluate the need for additional interventions at the next visit. 3. Hypertension: - Patient reports recent increase in blood pressure medication and elevated blood pressure readings. Plan: - Discontinuing Viibryd may help reduce blood pressure, as it has the potential to raise blood pressure. - Encourage patient to follow up with their primary care provider for blood pressure management. 4. Sleep Apnea: - Patient is in the process of obtaining a CPAP machine. Plan: - Encourage patient to use CPAP once obtained to improve sleep quality and potentially reduce fatigue. 5. Fatigue: - Persistent fatigue despite multiple medication trials. Plan: - Monitor response to tapering off Viibryd and continuation of Abilify. - Encourage patient to use CPAP once obtained to improve sleep quality. Follow-up in one month to evaluate the patient's response to medication changes and discuss alternative treatment options if necessary. 06/05/2024 Other fatigue (ICD-10 - R53.83) I discussed several options including antipsychotic agents for the treatment. As we are choosing an antipsychotic agent for the treatment I educated the patient about the metabolic syndrome. I discussed with the patient the effect of addition of antipsychotic agent will increase the risk of metabolic syndrome, including but not limiting to x increase in blood sugar, x cholesterol levels and x developing of insulin resistance. x The importance of laboratory blood drawn were discussed with the patient. x The metabolic risk associated with the antipsychotic agent is a class associated risk factor. Anti-psychotic agents not only increase the risk of metabolic disorder, it also increase the risk of CVA and movement disorders and EPS among other. It was also advice to the patient that sheshould not stop the medication without my advice unless they are having intolerable side effects. 1. Generalized Anxiety Disorder (CORINA): - Patient reports increased anxiety in the last few days, with no identifiable triggers. Currently taking BuSpar 10 mg three times a day for anxiety. Plan: - Continue BuSpar 10 mg TID for anxiety. - Reassess the effectiveness of BuSpar at the next visit in one month. 2. Major Depressive Disorder (MDD): - Patient reports improvement in mood and energy after starting Abilify (aripiprazole) 2 mg, but has experienced increased anxiety in the last few days. Plan: - Increase Abilify (aripiprazole) to 5 mg daily for MDD. - Continue vortioxetine 40 mg once a day with food. - Reevaluate patient's response to the increased dose of Abilify at the next visit in one month. 3. Insomnia: - Patient reports difficulty staying asleep and shutting their mind off at night. Has sleep apnea and is awaiting a sleep study in November. Plan: - Encourage patient to follow up with their sleep study and consider using a CPAP machine if indicated. - Monitor sleep quality at the next visit in one month. 4. Social engagement and support: - Patient expresses a desire to find an outreach or volunteer opportunity to engage with others and contribute to their community. Plan: - Encourage patient to explore local food pantries, zoroastrianism organizations, or [employer] for volunteer opportunities. - Discuss patient's progress in finding social engagement at the next visit in one month. Follow-up: - Schedule a follow-up appointment in one month to reassess patient's anxiety, mood, sleep, and social engagement. 07/03/2024 Other fatigue (ICD-10 - R53.83) 1. Major Depressive Disorder: - Patient reports persistent fatigue, occasional sadness, and anxiety. PHQ-9 score is 7, indicating mild depression. The patient has tried multiple medications with limited success. Plan: - Taper off Viibryd: Decrease to 20 mg daily for one week, then 10 mg daily for one week, and then discontinue. - Continue Abilify 5 mg daily for now. - Consider alternative treatment options such as Spravato (Esketamine) nasal spray if symptoms do not improve. Provide patient with information on Spravato. 2. Anxiety: - Patient reports worsening anxiety and shakiness. Plan: - Monitor response to tapering off Viibryd and continuation of Abilify. - Reevaluate the need for additional interventions at the next visit. 3. Hypertension: - Patient reports recent increase in blood pressure medication and elevated blood pressure readings. Plan: - Discontinuing Viibryd may help reduce blood pressure, as it has the potential to raise blood pressure. - Encourage patient to follow up with their primary care provider for blood pressure management. 4. Sleep Apnea: - Patient is in the process of obtaining a CPAP machine. Plan: - Encourage patient to use CPAP once obtained to improve sleep quality and potentially reduce fatigue. 5. Fatigue: - Persistent fatigue despite multiple medication trials. Plan: - Monitor response to tapering off Viibryd and continuation of Abilify. - Encourage patient to use CPAP once obtained to improve sleep quality. Follow-up in one month to evaluate the patient's response to medication changes and discuss alternative treatment options if necessary. 2024 Insomnia due to other mental disorder (ICD-10 - F51.05) improving with quetiapine 1. Anxiety: - Patient has discontinued Buspirone as per the previous plan. - Patient has started Quetiapine 25 mg at bedtime and reports improved sleep. - Patient is unsure about the improvement in anxiety levels. Plan: - Increase Quetiapine to 50 mg at bedtime (patient to take 2 of the 25 mg tablets they already have). - Reassess anxiety levels in one week. 2. Restlessness: - Patient reports ongoing restlessness. Plan: - Monitor the effect of increased Quetiapine dosage on restlessness during the next visit. 3. Hopelessness: - Patient reports a decrease in feelings of hopelessness. Plan: - Continue to monitor and address any ongoing concerns during follow-up visits. 4. Follow-up appointment: - Patient has a scheduled appointment on the . Plan: - Keep the existing appointment and reassess the patient's progress at that time. 08/27/2024 Insomnia due to other mental disorder (ICD-10 - F51.05) improving with quetiapine 1. Major Depressive Disorder, treatment-resistan t: - Continue quetiapine 50 mg at bedtime - Start desvenlafaxine (Pristiq) 50 mg daily - Perform GeneSight pharmacogenetic testing to guide medication choices and dosages Plan: - Consider Spravato (esketamine) nasal spray treatment; patient to call if they decide to proceed - Follow up in two weeks to assess response to desvenlafaxine and discuss GeneSight results 2. Excessive daytime sleepiness: - Continue using CPAP machine for sleep apnea management Plan: - Monitor response to desvenlafaxine, as it may have a more energizing effect 3. Cognitive concerns: Plan: - Reassess cognitive function after improvement in depression symptoms, as depression can interfere with accurate assessment - Encourage patient to discuss cognitive concerns with their primary care provider for further evaluation if needed 09/24/2024 Insomnia due to other mental disorder (ICD-10 - F51.05) PERSISTS 1. Major Depressive Disorder, treatment-resistan t: - Increase venlafaxine (Pristiq) to 100 mg daily - Increase quetiapine to 100 mg daily Plan: - Reevaluate patient in two weeks - Initiate paperwork for Transcranial Magnetic Stimulation (TMS) authorization - Encourage patient to consider therapy 2. Insomnia: - Increase quetiapine to 100 mg daily, as it may also help with sleep Plan: - Reevaluate sleep patterns in two weeks - Encourage patient to maintain good sleep hygiene 3. Anxiety: Plan: - Continue monitoring anxiety levels during follow-up visits - Encourage patient to consider therapy for anxiety management 4. TMS Authorization: Plan: - Have patient complete necessary paperwork for TMS authorization - Submit paperwork to insurance for approval - Discuss TMS treatment plan with the patient once approval is obtained 10/25/2024 Insomnia due to other mental disorder (ICD-10 - F51.05) PERSISTS Major Depressive Disorder - Plan: - Proceed with TMS treatment, consisting of 36 sessions. One session per day for five weeks, followed by tapering off during the last six sessions. - Monitor the patient's response to treatment and adjust as necessary. - Encourage proper sleep hygiene and medication adherence to minimize seizure risk. - Inform patient that effects may be noticeable within 4 treatments, but typically take 3 to 4 weeks. Sleep - Plan: - Continue to monitor sleep quality throughout TMS treatment. - Consider postponing TMS treatment if patient sleeps less than four hours per night. Seizure Risk - Plan: - Educate patient on importance of medication adherence and proper sleep hygiene to minimize seizure risk. - Instruct patient to inform treatment team if any issues arise that may increase seizure risk. Counseling - Plan: - Reevaluate patient's interest in counseling throughout TMS treatment. - Offer counseling resources and discuss potential benefits of therapy in conjunction with TMS. Consent for TMS Treatment - Plan: - Have airframe technical officer obtain informed consent from patient before initiating TMS treatment. - Find alternative method for obtaining consent if airframe technical officer is unavailable. Patient Education - Plan: - Provide detailed information about TMS procedure, including: - Use of helmet with magnetic coil - Sensation of tapping on the head - Duration of each session (about 19 minutes with 2-second pulses and 20-second breaks) 10/22/2024 Insomnia due to other mental disorder (ICD-10 - F51.05) PERSISTS 1. Major Depressive Disorder: - TMS therapy approved by insurance. - Patient currently on desvenlafaxine 50 mg daily. Plan: - Schedule patient with Dr. Waters for consent and initiation of TMS treatment. - Continue desvenlafaxine 50 mg daily. - Encourage patient to consider counseling to address emotional processing and social initiation. 2. Tremors and cognitive issues: Plan: - Consult with primary care provider for further investigation. - Monitor patient's ability to drive and ensure safety. 3. Medication side effects (quetiapine): Plan: - Decrease quetiapine to 100 mg at bedtime. - Reassess cognitive improvement in 2 weeks. - Consider alternative medications if necessary (e.g., Abilify, lithium). 4. Sleep and appetite: Plan: - Continue monitoring sleep and appetite improvements with quetiapine dose reduction. 5. Transportation for TMS therapy: Plan: - Explore options for affordable transportation services for daily TMS appointments. - Coordinate with patient's support system for assistance if possible. 6. Follow-up: - Schedule follow-up appointment in 2 weeks to assess medication changes and cognitive improvement. - Ensure patient is scheduled with Dr. Waters for TMS therapy initiation. 10/10/2024 Insomnia due to other mental disorder (ICD-10 - F51.05) PERSISTS 1. Major Depressive Disorder, treatment-resistan t: - Increase venlafaxine (Pristiq) to 100 mg daily - Increase quetiapine to 100 mg daily Plan: - Reevaluate patient in two weeks - Initiate paperwork for Transcranial Magnetic Stimulation (TMS) authorization - Encourage patient to consider therapy 2. Insomnia: - Increase quetiapine to 100 mg daily, as it may also help with sleep Plan: - Reevaluate sleep patterns in two weeks - Encourage patient to maintain good sleep hygiene 3. Anxiety: Plan: - Continue monitoring anxiety levels during follow-up visits - Encourage patient to consider therapy for anxiety management 4. TMS Authorization: Plan: - Have patient complete necessary paperwork for TMS authorization - Submit paperwork to insurance for approval - Discuss TMS treatment plan with the patient once approval is obtained 1. Major Depressive Disorder, treatment-resistan t: - Continue Pristiq at a reduced dose of 50 mg daily - Increase quetiapine (Seroquel) to 200 mg at bedtime for depression Plan: - Monitor response to medication adjustments in 2 weeks - Pending insurance approval, initiate Transcranial Magnetic Stimulation (TMS) therapy - Reconsider Spravato nasal spray or Electroconvulsive Therapy (ECT) if TMS is not effective or feasible 2. Persistent tremors: Plan: - Continue monitoring tremors and their impact on daily functioning - Encourage discussion with primary care physician to rule out any underlying medical causes 3. Insomnia: - Increase quetiapine (Seroquel) to 200 mg at bedtime to potentially improve sleep Plan: - Monitor sleep patterns and quality after medication adjustment in 2 weeks 4. Decreased appetite and weight loss: Plan: - Encourage regular meals and adequate nutrition - Monitor weight and appetite changes during follow-up visits 5. Anxiety: Plan: - Monitor anxiety levels during follow-up visits - Consider referral to therapy or counseling if anxiety persists or worsens Follow-up: - Schedule follow-up in 2 weeks or sooner if the patient starts TMS therapy. 12/05/2024 Mixed hyperlipidemia (ICD-10 - E78.2) 11/05/2024 Insomnia due to other mental disorder (ICD-10 - F51.05) PERSISTS 1. Major Depressive Disorder: - Patient reports no significant improvement in mood and continues to experience discouragement. Plan: - Continue desvenlafaxine 50 mg daily. - Monitor for any changes in mood during TMS treatment. 2. Insomnia: - Patient reports worsened sleep since decreasing quetiapine to 100 mg. Plan: - Maintain quetiapine at 100 mg daily to balance sleep and cognitive side effects. - Reassess sleep quality after TMS treatment. 3. Cognitive fog: - Patient reports some improvement in cognitive fog since decreasing quetiapine. Plan: - Continue quetiapine at 100 mg daily. - Monitor for any changes in cognitive function during TMS treatment. 4. Persistent tremors: - Patient reports ongoing tremors, regardless of medication changes. Plan: - Patient to follow up with primary care physician for further evaluation and possible referral to neurology. 5. TMS treatment: - Patient scheduled to start TMS treatment with Dr. Waters. Plan: - Complete 36 TMS sessions as prescribed. - Patient to follow up after TMS treatment for reassessment of mood, sleep, and cognitive function. 6. Medication refills: Plan: - Refill prescriptions for quetiapine 100 mg and desvenlafaxine 50 mg. 01/08/2025 Major depressive disorder, recurrent severe without psychotic features (ICD-10 - F33.2) 05/15/2025 Insomnia due to other mental disorder (ICD-10 - F51.05) 02/12/2025 Generalized anxiety disorder (ICD-10 - F41.1) stable 01/15/2025 Benign essential HTN (ICD-10 - I10) 02/12/2025 Encounter for screening for cardiovascular disorders (ICD-10 - Z13.6) 02/12/2025 Insomnia due to other mental disorder (ICD-10 - F51.05) 01/15/2025 Generalized anxiety disorder (ICD-10 - F41.1) persistent, Learning About Transcranial Magnetic Stimulation (TMS) material was published 12/05/2024 Essential hypertension (ICD-10 - I10) 01/08/2025 Mixed hyperlipidemia (ICD-10 - E78.2) 01/08/2025 Essential hypertension (ICD-10 - I10) 12/05/2024 Insomnia due to other mental disorder (ICD-10 - F51.05) PERSISTS 01/15/2025 Major depressive disorder, recurrent severe without psychotic features (ICD-10 - F33.2) 11/18/2024 Mild cognitive disorder (ICD-10 - F09) Major Depressive Disorder - Assessment: Patient reports a 20% improvement in mood with TMS treatment. PHQ9 score has decreased from 18 to 9 since October 25, indicating almost 50% improvement. Patient reports feeling better and not as down as before. - Plan: - Continue TMS treatment as scheduled. Patient has completed 6 TMS sessions so far. - Continue desvenlafaxine 50 mg in the morning. Insomnia - Assessment: Patient reports difficulty falling asleep and staying asleep. - Plan: - Continue quetiapine at night. - Add Belsomra 10 mg at bedtime, with the understanding that it may take about a week to start working. - Prescriptions sent to [facility] pharmacy. Anxiety - Assessment: Patient reports ongoing anxiety, describing feeling nervous about things. - Plan: - Continue to monitor and address anxiety during TMS treatment and follow-up visits. Memory and Cognitive Function - Assessment: Patient reports improved concentration and memory with treatment. - Plan: - Schedule baseline memory testing, including paper-pencil and computer testing. - Reassess in 6 months to monitor for any decline or problem areas. - Consider interventions such as cognitive exercises or medications if memory issues are identified. General Health - Assessment: Patient denies any current medical problems. Patient does not smoke or drink. - Plan: - Encourage the patient to maintain a healthy lifestyle, including regular exercise and a balanced diet. Follow-up - Plan: - Schedule a follow-up appointment to assess the patient's progress with TMS treatment, insomnia, anxiety, and memory testing results. 01/15/2025 Mixed hyperlipidemia (ICD-10 - E78.2) 12/05/2024 Mild cognitive disorder (ICD-10 - F09) 01/08/2025 Insomnia due to other mental disorder (ICD-10 - F51.05) PERSISTS 01/08/2025 Mild cognitive disorder (ICD-10 - F09) 01/15/2025 Essential hypertension (ICD-10 - I10) 01/15/2025 Insomnia due to other mental disorder (ICD-10 - F51.05) PERSISTS 01/15/2025 Mild cognitive disorder (ICD-10 - F09) 08/27/2024 Other do gensight test 1. Major Depressive Disorder, treatment-resistan t: - Continue quetiapine 50 mg at bedtime - Start desvenlafaxine (Pristiq) 50 mg daily - Perform GeneSight pharmacogenetic testing to guide medication choices and dosages Plan: - Consider Spravato (esketamine) nasal spray treatment; patient to call if they decide to proceed - Follow up in two weeks to assess response to desvenlafaxine and discuss GeneSight results 2. Excessive daytime sleepiness: - Continue using CPAP machine for sleep apnea management Plan: - Monitor response to desvenlafaxine, as it may have a more energizing effect 3. Cognitive concerns: Plan: - Reassess cognitive function after improvement in depression symptoms, as depression can interfere with accurate assessment - Encourage patient to discuss cognitive concerns with their primary care provider for further evaluation if needed 09/24/2024 Other will do PA for TMS, discussd TMS with patient discussed option of Spravato for depression tx, pt is not interested at this time 1. Major Depressive Disorder, treatment-resistan t: - Increase venlafaxine (Pristiq) to 100 mg daily - Increase quetiapine to 100 mg daily Plan: - Reevaluate patient in two weeks - Initiate paperwork for Transcranial Magnetic Stimulation (TMS) authorization - Encourage patient to consider therapy 2. Insomnia: - Increase quetiapine to 100 mg daily, as it may also help with sleep Plan: - Reevaluate sleep patterns in two weeks - Encourage patient to maintain good sleep hygiene 3. Anxiety: Plan: - Continue monitoring anxiety levels during follow-up visits - Encourage patient to consider therapy for anxiety management 4. TMS Authorization: Plan: - Have patient complete necessary paperwork for TMS authorization - Submit paperwork to insurance for approval - Discuss TMS treatment plan with the patient once approval is obtained 11/05/2024 Other she has had [employer] testing 1. Major Depressive Disorder: - Patient reports no significant improvement in mood and continues to experience discouragement. Plan: - Continue desvenlafaxine 50 mg daily. - Monitor for any changes in mood during TMS treatment. 2. Insomnia: - Patient reports worsened sleep since decreasing quetiapine to 100 mg. Plan: - Maintain quetiapine at 100 mg daily to balance sleep and cognitive side effects. - Reassess sleep quality after TMS treatment. 3. Cognitive fog: - Patient reports some improvement in cognitive fog since decreasing quetiapine. Plan: - Continue quetiapine at 100 mg daily. - Monitor for any changes in cognitive function during TMS treatment. 4. Persistent tremors: - Patient reports ongoing tremors, regardless of medication changes. Plan: - Patient to follow up with primary care physician for further evaluation and possible referral to neurology. 5. TMS treatment: - Patient scheduled to start TMS treatment with Dr. Waters. Plan: - Complete 36 TMS sessions as prescribed. - Patient to follow up after TMS treatment for reassessment of mood, sleep, and cognitive function. 6. Medication refills: Plan: - Refill prescriptions for quetiapine 100 mg and desvenlafaxine 50 mg. 12/05/2024 Other Depression - Plan: - Continue desvenlafaxine for depression management. - Reassess depression status after completion of TMS treatment. - Continue ongoing TMS treatment (17 sessions completed). Cognitive Function - Plan: - Repeat memory testing after completion of TMS treatment to assess for any improvements. Insomnia - Plan: - Continue Belsomra for sleep management. Anxiety - Plan: - Continue to monitor for any changes in anxiety symptoms. Medication Refills - Plan: - Refill desvenlafaxine for depression. - Refill Belsomra for insomnia. - Refill quetiapine 100mg. - Send all prescriptions to [facility]. Advance Directives - Plan: - Continue to review and update advance directives as needed. Follow-up - Plan: - Schedule a follow-up appointment after completion of TMS treatment to reassess depression and cognitive function. - Encourage the patient to report any changes in mood, memory, or other concerns in the meantime. 01/08/2025 Other Financial Concern - Assessment: Patient reported a billing issue with a balance of over $500 due to uncollected copays. She expressed disappointment and frustration and has not yet spoken to the billing department. - Plan: - Investigate the billing issue and communicate with the billing department to clarify the situation. - Offer the patient a payment plan to ease the financial burden, allowing her to pay in smaller installments. Depression - Assessment: Patient's depression score has improved to zero, indicating remission. Patient reported improvement in mood and overall well-being after undergoing TMS treatment, with one session remaining on Monday. - Plan: - Continue with the last TMS session on Monday. - Maintain current medications: K-Tab 100 mg, desvenlafaxine 50 mg, and Belsomra 10 mg. - Schedule a follow-up appointment with Dani in one month to monitor progress and adjust treatment as needed. Sleep and Appetite - Assessment: Patient did not report any concerns regarding sleep or appetite. - Plan: - Continue monitoring sleep and appetite during follow-up appointments. Anxiety and Panic Attacks - Assessment: Patient did not report any major anxiety or panic attacks. - Plan: - Continue monitoring anxiety levels during follow-up appointments. Side Effects from Treatment - Assessment: Patient reported no side effects from the TMS treatment. - Plan: - Continue monitoring for any potential side effects during follow-up appointments. 01/15/2025 Other Major Depressive Disorder, in remission - Assessment: Patient has recently completed a course of 36 TMS treatments, with the last session on January 13, 2025. She reports significant improvement in depressive symptoms, with a current PHQ-9 score of zero, indicating no depression. The patient expresses a positive experience with TMS, noting early effects and increased belief in the treatment as it progressed. She reports overall improvement in depression, anxiety, sleep, and appetite. No current symptoms of depression or anxiety are reported. - Plan: - Continue current medication regimen: - Quetiapine 100 mg (dose and frequency not specified) - Desvenlafaxine 50 mg (dose and frequency not specified) - Belsomra 10 mg for sleep (patient has 5 days of medication remaining, next fill date January 20, 2025) - Follow-up appointment with Dani, a mental health provider, in the next 3 weeks for medication management and continued care - Monitor for any recurrence of depressive symptoms or anxiety 02/12/2025 Other Yoli Espinosa, female patient, reports significant improvement in depression symptoms following Transcranial Magnetic Stimulation (TMS) therapy completed recently. Major Depressive Disorder (MDD) Assessment: Patient reports complete remission of depressive symptoms following TMS therapy, which was initiated in November and recently completed. She describes the treatment as the best thing that ever happened to me and denies any current depression. No side effects were reported from TMS. Patient continues to take quetiapine 100 mg at bedtime, desvenlafaxine 50 mg daily, and Belsomra 10 mg at bedtime without reported issues. Sleep and appetite appear to be stable, though specific details were not provided. Plan: - Continue current medication regimen: - Quetiapine 100 mg PO at bedtime - Desvenlafaxine 50 mg PO daily - Belsomra 10 mg PO at bedtime - Send medication refills to [facility] (mail order pharmacy) - Follow-up appointment in 3 months Anxiety Assessment: Patient denies experiencing any current anxiety symptoms. Plan: - Continue monitoring for any recurrence of anxiety symptoms the note is transcribed using speech recognition software. It is a reflection of a visit with the patient. It might have some inaccuracy, including medication names and transcribing errors, though efforts have been made to correct them. 05/15/2025 Randy Espinosa, female patient with a history of depression, presents for follow-up after successful TMS treatment, reporting significant improvement in depressive symptoms. Major Depressive Disorder, in remission Assessment: Patient reports significant improvement in depressive symptoms following Transcranial Magnetic Stimulation (TMS) therapy. She states that her depression symptoms are pretty much gone and describes her current state as glorious. 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 She reports good sleep and denies any current anxiety symptoms. The patient is currently maintained on a medication regimen including quetiapine, desvenlafaxine ER, and balsamara, with no reported side effects or issues. Plan: - Continue current medication regimen: - Quetiapine 100 mg PO at bedtime - Desvenlafaxine ER 50 mg PO daily - Belsomra 10 mg PO at bedtime - Refill all current medications through [facility] - Follow-up appointment scheduled in 3 months Sleep Apnea Assessment: Patient reports good sleep and confirms continued use of CPAP therapy for management of sleep apnea. Plan: - Continue CPAP therapy as prescribed the note is transcribed using speech recognition software. It is a reflection of a visit with the patient. It might have some inaccuracy, including medication names and transcribing errors, though efforts have been made to correct them. Plan Of Treatment Future Test Test Name Order Date MCI Testing 11/18/2024 SLUMS Testing 11/18/2024 Next Appt Details Provider Name:Justus jeffers, 08/12/2025 09:15:00 AM, [address], [address], [place], [address], Insurance Providers Payer Name Payer Address Payer Phone Subscriber Number Group Number Insured Name Patient Relationship to Insured Coverage Start Date Coverage End Date Aetna Medicare Replacemen t/Advantag e - Ppo [address] [place] [phone] [id number] JESÚS YOLI Self - patient is the insured Medical (General) History Medical History History ICD Code Problems: Generalized anxiety disorder Long-term drug therapy Malaise and fatigue Mild recurrent major depression Obstructive sleep apnea syndrome , Imported from Highlights: On 10/07/2021, the patient had an office visit with Dr. Cisco Craig for vaginitis. This was followed by another office visit on 02/09/2022 with JUAN Cameron, addressing atrophic vaginitis and female stress incontinence. On 05/31/2024, the patient visited Shan Stiles MD at [facility] for age-related osteoporosis, essential hypertension, joint swelling of the lower leg, and obstructive sleep apnea syndrome. A hospital encounter on 06/18/2024 also noted obstructive sleep apnea syndrome. On 08/19/2024, a hospital encounter highlighted chest pain due to myocardial ischemia, essential hypertension, mixed hyperlipidemia, and stage 3b chronic kidney disease. On 09/30/2024, Dr. Matthew Pepe noted chest discomfort, dyslipidemia, and primary hypertension. On 11/29/2024, Shan Stiles MD documented multiple conditions including acquired hammer toe, anxiety, dyslipidemia, essential hypertension, and stage 3b chronic kidney disease. A laboratory visit on 01/09/2025 revealed elevated glucose and mixed hyperlipidemia. On 03/03/2025, a hospital encounter and scan were conducted for arthritis of the glenohumeral joints. On 05/13/2025, Shan Stiles MD noted age-related osteoporosis without current pathological fracture. Surgical History Surgery Date(Month/Year) Appendectomy (70713) Removal of gallbladder (62066) Hysterectomy (24515) Sinus surgery
--- OUTSIDE RECORDS SUMMARY | 2025-06-04 09:45 | XMS_ITS | Referral Summary ---
Author Organization [facility] Address [address] [place] [address] Care Team Providers Care Breaking Machine Operator Name Role Phone Mora Ross DPM Unavailable [phone] Shan Sampson MD Primary Care Provider Allergies Active Allergy Reactions Criticality Noted Date Comments Codeine Hallucinations Reaction: HALLUCINATION, , Medications lisinopriL (PRINIVIL,ZESTR IL) 40 mg tablet Take 1 tablet (40 mg total) by mouth daily Active buPROPion XL (WELLBUTRIN XL) 300 mg 24 hr tablet Take 1 tablet (300 mg total) by mouth daily Active busPIRone (BUSPAR) 10 mg tabletIndicatio ns:Generalized Anxiety Disorder Take 1 tablet (10 mg total) by mouth 3 (three) times a day Active DULoxetine DR (CYMBALTA) 60 mg capsule Take 120 mg by mouth daily Active cholecalciferol (VITAMIN D-3) 25 mcg (1,000 unit) tablet Take 1 tablet (1,000 Units total) by mouth daily Active calcium carbonate (OS-ADAM) 650 mg calcium (1,625 mg) tablet Take 1 tablet (1,625 mg total) by mouth daily Active potassium chloride ER (potassium chloride ER) 20 mEq CR tablet Take 1 tablet (20 mEq total) by mouth daily Active ALPRAZolam (XANAX) 0.5 mg tablet Active amLODIPine (NORVASC) 10 mg tablet 3 Active amoxicillin-cla vulanate (AUGMENTIN) 875-125 mg per tablet Take 1 tablet by mouth every 12 (twelve) hours for 10 days 3 Active benzonatate (TESSALON) 100 mg capsule TAKE 1 CAPSULE BY MOUTH EVERY 8 HOURS NEEDED 3 Active Auvelity 45-105 mg tablet, IR & ER, biphasic Take 1 tablet by mouth 2 (two) times a day 3 Active estradioL (ESTRACE) 0.01 % (0.1 mg/gram) vaginal cream USE CREAM TOPICALLY TO AFFECTED AREA ONCE DAILY AT BEDTIME FOR 30 DAYS Active famotidine (PEPCID) 40 mg tablet TAKE 1 TABLET BY MOUTH TWICE DAILY NEEDED FOR HEARTBURN 3 Active metoprolol XL (TOPROL-XL) 25 mg extended release tablet 1 tablet (25 mg total) daily 3 Active omeprazole (PriLOSEC) 40 mg capsule 3 Active pravastatin (PRAVACHOL) 20 mg tablet Take 1 tablet (20 mg total) by mouth daily 3 Active predniSONE (DELTASONE) 20 mg tablet TAKE 1 TABLET BY MOUTH ONCE DAILY FOR 5 DAYS 3 Active sertraline (ZOLOFT) 100 mg tablet 3 Active spironolactone (ALDACTONE) 50 mg tablet Active alendronate (Fosamax) 70 mg tablet 1 Q WEEKLY Oral 1 Active clobetasoL (TEMOVATE) 0.05 % ointment APPLY TOPICALLY ONCE AT BEDTIME 3 Active olmesartan (Benicar) 40 mg tablet 1 daily Oral 0 Active traZODone (DESYREL) 50 mg tablet 1 daily Oral 0 Active vilazodone (VIIBRYD) 40 mg tablet 4 Active vilazodone (VIIBRYD) 20 mg tablet Take 1 tablet (20 mg total) by mouth daily 3 Active Active Problems Problem Noted Date Diagnosed Date 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 12/22/2023 Stage 3b chronic kidney disease 12/22/2023 Mixed hyperlipidemia 04/29/2023 Anxiety 01/23/2023 Depression 01/23/2023 Essential hypertension 01/23/2023 Migraine 01/23/2023 Metatarsalgia of right foot 06/28/2021 Overview (06/28/2021): Added automatically from request for surgery [id number] Acquired hammer toe of right foot 06/28/2021 Overview (06/28/2021): Added automatically from request for surgery [id number] Dislocation of metatarsophal angeal joint of lesser toe of right foot 06/28/2021 Overview (06/28/2021): Added automatically from request for surgery [id number] Pre-op testing 01/13/2021 Spontaneous rupture of extensor tendon of left a nkle 01/05/2021 Overview (01/05/2021): Added automatically from request for surgery [id number] Anterior tibial syndrome of left leg 01/05/2021 Overview (01/05/2021): Added automatically from request for surgery [id number] 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 thy 06/08/2015 Cervicalgia 05/28/2015 Surgical follow-up care 05/01/2012 Osteoarthritis of knee 03/13/2012 Immunizations Immunization Administration Dates Next Due Influenza, Unspecified 07/07/2020 Social History Tobacco Use Types Packs/Day Years Used Date Smoking Tobacco: Never Smokeless Tobacco: Never AUDIT-C Answer Date Recorded Q1: How often do you have a drink containing alc ohol? Never 07/09/2021 Average Number of Drinks Not on file 021 Q3: How often do you have si x or more drinks on one occasion? 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 Gender Identity Not on file Sexual Orientation Not on file Last Filed Vital Signs Vital Sign Reading Time Taken Comments Blood Pressure 102/72 01/29/2024 11:39 AM CDT Pulse 69 01/29/2024 11:39 AM CDT Temperature 36.6 C (97.8 F) 01/29/2024 11:39 AM CDT Respiratory Rate 20 01/29/2024 11:39 AM CDT Oxygen Saturation 96% 01/29/2024 11:39 AM CDT Inhaled Oxygen Concentration - - Weight 65.8 kg (145 lb) 01/29/2024 11:39 AM CDT Height 157.5 cm (5' 2) 01/29/2024 11:39 AM CDT Body Mass Index 26.52 01/29/2024 11:39 AM CDT Plan of Treatment Not on file Medical Devices Implanted Type Area Multimedia Instructional Designer Device Identifier Shelf Expiration Date Model / Serial / Lot K-Wire Implanted:Qty: 1 on 07/09/2021 by Mora Ross DPM at [facility] Right: Second Toe [employer] 11/25/2025 [id number] / / [id number] Cannulated Headless Screw Implanted:Qty: 1 on 07/09/2021 by Mora Ross DPM at [facility] Right: Second Toe [employer] [id number] / / Insurance [address] MEDICARE ADVANTAGE MD [facility] MEDICARE AETNA MEDICARE Advance Directives For more information, please contact: [phone] * Full Code (Latest Code Status on File) Date Activated Date Inactivated Comments 07/09/2021 1:55 PM 07/09/2021 7:32 PM * Full Code Date Activated Date Inactivated Comments 01/13/2021 6:27 PM 01/20/2021 10:33 PM Care Teams Breaking Machine Operator Relationship Specialty Start Date End Date Shan Sampson MD [address] [place], [place] [id number] PCP - General Internal Medicine 09/20/23 Mora Ross DPM [address] [place], [place] [id number] Consulting Physician Foot and Ankle Surg 01/13/21
--- OUTSIDE RECORDS SUMMARY | 2025-06-04 09:45 | XMS_ITS | Clinical Summary ---
Author Organization [facility] Address [address] [place] [address] Care Team Providers Care Nurse'S Aides Teacher Name Role Phone Mora Ross DPM Unavailable [phone] Shan Sampson MD Primary Care Provider [phone] Allergies Active Allergy Reactions Criticality Noted Date [...] (06/28/2021): Added automatically from request for surgery [id number] Acquired hammer toe of right foot 06/28/2021 Overview (06/28/2021): Added automatically from request for surgery [id number] Dislocation of metatarsophal angeal joint of lesser toe of right foot 06/28/2021 Overview (06/28/2021): Added automatically from request for surgery [id number] Pre-op testing 01/13/2021 Spontaneous rupture of extensor tendon of left a nkle 01/05/2021 Overview (01/05/2021): Added automatically from request for surgery [id number] Anterior tibial syndrome of left leg 01/05/2021 Overview (01/05/2021): Added automatically from request for surgery [id number] 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 thy 06/08/2015 Cervicalgia 05/28/2015 Surgical follow-up care 05/01/2012 Osteoarthritis of knee 03/13/2012 Immunizations Immunization Administration Dates Next Due Influenza, Unspecified 07/07/2020 Surgical History Surgery Date Site/Laterality Comments HYSTERECTOMY OOPHERECTOMY Bilateral CHOLECYSTECTOMY HEMORRHOID SURGERY x2 SINUS SURGERY x2 CARPAL TUNNEL RELEASE Bilateral x2 VAGINAL PROLAPSE REPAIR x2 COLON SURGERY JOINT REPLACEMENT KNEE ARTHROPLASTY Bilateral Medical History Medical History Date Comments Aftercare following joint re placement surgery Aftercare following joint re placement - (Added by TW Conv) PONV (postoperative nausea and vomiting) Sleep apnea Hypertension GERD (gastroesophageal reflux disease) Family History Medical History Relation Name Comments Hypertension Daughter 1 Family history of hypertension - (Added by TW Conv) Bleeding Disorder Daughter 2 Family his tory of bleeding disorder - (Added by TW Conv) Alcohol abuse Father Family history of alcoholism - (Added by TW Conv) Arthritis Maternal Grandmother Family history of arthritis - (Added by TW Conv) Cancer Sister 1 Family history of malignant neoplasm - (Added by TW Conv) Kidney disease Sister 2 Family histor y of kidney disease - (Added by TW Conv) Diabetes Sister 3 Family history of diabetes mellitus - (Added by TW Conv) Mental illness Sister 4 FH: mental il lness - (Added by TW Conv) Hypertension Son Family history of hypertension - (Added by TW Conv) Relation Name Status Comments Daughter 1 Daughter 2 Father Maternal Grandmother Sister 1 Sister 2 Sister 3 Sister 4 Son Social History Tobacco Use Types Packs/Day Years [...] on file 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 Gender Identity Not on file Sexual Orientation Not on file Obstetrics History Last Filed Vital Signs Vital Sign Reading [...] 01/29/2024 11:39 AM CDT Plan of Treatment Health Maintenance Due Date Last Done Comments Hepatitis C Screening 1945 Osteoporosis Screening-Bone Density Scan 1945 Well Visit 65+ 2011 Depression Screening 01/05/2022 01/05/2021 Fall Risk Assessment 01/20/2022 01/20/2021 Influenza Vaccine (#1) 2025 4, 10/26/2021, 07/07/2020, Additional history exists DTaP/Tdap/Td Vaccine (2 - Td or Tdap) 12/22/2033 12/22/2023 Hepatitis B Screening Completed 11/06/1999 Pneumococcal vaccine 65+ Completed 017, 11/21/2012, 2011 Zoster Vaccine Completed 11/05/2019, 07/12/2019 Medical Devices Implanted Type Area Rehabilitation Tech Device Identifier Shelf Expiration Date Model / Serial / Lot K-Wire Implanted:Qty: 1 on 07/09/2021 by Mora Ross DPM at [facility] Right: Second Toe [employer] 11/25/2025 [id number] / / [id number] Cannulated Headless Screw Implanted:Qty: 1 on 07/09/2021 by Mora Ross DPM at [facility] Right: Second Toe [employer] [id number] / / Insurance [employer] MEDICARE ADVANTAGE ID AETNA MEDICARE [facility] MEDICARE Advance Directives For more information, please contact: [phone] * Full Code (Latest Code Status on File) Date Activated Date Inactivated Comments 07/09/2021 1:55 PM 07/09/2021 7:32 PM * Full Code Date Activated Date Inactivated Comments 01/13/2021 6:27 PM 01/20/2021 10:33 PM Care Teams Nurse'S Aides Teacher Relationship Specialty Start Date End Date Shan Sampson MD [address] [place] [address] PCP - General Internal Medicine 09/20/23 Mora Ross DPM [address] [facility] [address] Consulting Physician Foot and Ankle Surg 01/13/21
--- OUTSIDE RECORDS SUMMARY | 2025-06-04 09:45 | XMS_ITS | Clinical Summary ---
Author Organization [facility] Address [address] [place] [address] Care Team Providers Care Eligibility Supervisor Name Role Phone Shan Sampson MD Primary Care Provider [phone] Allergies Active Allergy Reactions Criticality Noted Date Comments Codeine Hallucinations 12/23/2022 Medications vilazodone (VIIBRYD) 40 MG tablet Take 1 tablet (40 mg total) by mouth daily. Take with food Active CPAP DEVICE, DME,Indications: Obstructive sleep apnea syndrome 1 Device by Does not apply route nightly. Send to olook Device 06/28/20 24 Active ARIPiprazole (ABILIFY) 5 MG tablet Take 1 tablet (5 mg total) by mouth daily. 09/10/20 24 Active desvenlafaxine ER 100 MG TABLET SR 24 HR 24 hr tablet Take 1 tablet by mouth daily. 09/25/20 24 Active QUEtiapine (SEROQUEL) 100 MG tablet Take 1 tablet (100 mg total) by mouth nightly at bedtime. 09/25/20 24 Active pravastatin (PRAVACHOL) 20 MG tabletIndication s:Mixed hyperlipidemia,D yslipidemia Take 1 tablet (20 mg total) by mouth nightly at bedtime. 90 tablet 1 11/29/19 25 Active omeprazole (PRILOSEC) 40 MG capsuleIndicatio ns:Gastroesophag eal reflux disease without esophagitis Take 1 capsule (40 mg total) by mouth daily. 90 capsule 1 11/29/19 25 Active metoprolol succinate ER (TOPROL-XL) 50 MG 24 hr tabletIndication s:Essential hypertension Take 1 tablet (50 mg total) by mouth daily. 90 tablet 1 11/29/19 25 Active famotidine (PEPCID) 20 MG tabletIndication s:Gastroesophage al reflux disease without esophagitis Take 1 tablet (20 mg total) by mouth 2 (two) times daily. 180 tablet 1 11/29/19 25 Active dilTIAZem ER (TIAZAC) 300 MG 24 hr capsuleIndicatio ns:Essential hypertension Take 1 capsule (300 mg total) by mouth daily. 90 capsule 1 11/29/19 25 Active BELSOMRA 10 MG Tab Take 1 tablet by mouth nightly at bedtime. 12/16/19 25 Active lisinopril (PRINIVIL) 10 MG tabletIndication s:Essential hypertension Take 1 tablet (10 mg total) by mouth daily. 90 tablet 1 03/12/20 25 Active denosumab (PROLIA) 60 MG/ML injectionIndicat ions:Age-related osteoporosis without current pathological fracture Inject 1 mL (60 mg total) into the skin every 6 (six) months. Fax to [address] 1 mL 2 05/12/20 25 Active denosumab (PROLIA) 60 MG/ML injectionIndicat ions:Age-related osteoporosis without current pathological fracture Inject 1 mL (60 mg total) into the skin every 6 (six) months. Fax to [address] 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 12/22/2023 Stage 3b chronic kidney disease 12/22/2023 Mixed hyperlipidemia 04/29/2023 Essential hypertension 01/23/2023 BMI 27.0-27.9,adult 01/23/2023 Anxiety 01/23/2023 Depression 01/23/2023 Migraine 01/23/2023 Acquired hammer toe of right foot 06/28/2021 Overview (04/29/2023): Added automatically from request for surgery [id number] Anterior tibial syndrome of left leg 01/05/2021 Overview (04/29/2023): Added automatically from request for surgery [id number] 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 thy 06/08/2015 Osteoarthritis of knee 03/13/2012 Encounters Date Type Department Care Team Description 05/13/2025 9:00 AM CDT Office Visit [place] [id number] [facility] [address] [place] [address] Shan Sampson MD Follow Up; Osteoporosis 05/13/2025 Travel 05/13/2025 Telephone [facility] [address] [address] [place] [address] Shan Sampson MD Medication Information 05/12/2025 Telephone [place] [address] [place] [address] Shan Sampson MD Medication Information 05/08/2025 Telephone [facility] [address] [place] [address] Shan Sampson MD Medication Information 04/23/2025 Telephone [place] [address] [address] [place] [address] Shan Sampson MD Concerns 03/12/2025 Orders Only [facility] [address] [place] [address] Shan Sampson MD from Last 3 Months Immunizations Immunization Administration Dates Next Due Arexvy Respiratory Syncytial Virus (RSV, adjuvanted) 0.5 mL, PF 07/01/2024 FLUAD (IIV, Trivalent, 0.5 M L Pre-filled Syringe) 01/05/2018 Fluzone High Dose (IIV, triv alent, 0.5mL) 07/01/2024,07/12/2019,09/04/2018,2012 Fluzone High Dose - >Age 65 (Prefilled Syringe) 08/15/2023,09/05/2022,07/06/2020 Hepatitis B Vaccine Adult 11/06/1999 Influenza (Generic) 10/04/2018, 8,09/02/2016,2014 Influenza Adult (Generic) 10/26/2021,04/2019,09/04/2018,2017,11/21/2012 Pneumococcal (Pneumovax 23) 11/21/2012 Pneumococcal (Prevnar 13) 11/06/2016,2011 Shingrix 11/05/2019,07/12/2019 Tdap (Generic) 12/22/2023 Family History Medical History Relation Comments Alcohol Abuse Father Relation Status Comments Father Alive Social History Tobacco Use Types Packs/Day Years Used Date Smoking Tobacco: Never Smokeless Tobacco: Never Tobacco Cessation:Counseling Given: Yes Comments:Counseled by Dr. Sampson. Alcohol Use Standard Drinks/Week Comments Never 0 (1 standard drink = 0.6 oz pur e alcohol) PHQ-2 Answer Date Recorded Patient Health Questionnaire-2 Score 0 11/29/2024 Comments No Sex and Gender Information Value Date Recorded Sex Assigned at Female 12/31/2024 11:03 AM PORTFOLIO CONSULTANT Legal Sex Female 11:49 AM PORTFOLIO CONSULTANT Gender Identity Female 12/31/2024 11:03 AM PORTFOLIO CONSULTANT Sexual Orientation Straight 12/31/2024 11 :03 AM PORTFOLIO CONSULTANT Last Filed Vital Signs Vital Sign Reading Time Taken Comments Blood Pressure 117/81 05/13/2025 9:12 AM CDT Pulse 75 05/13/2025 9:12 AM CDT Temperature 36.1 C (96.9 F) 05/13/2025 9:12 AM CDT Respiratory Rate 16 05/13/2025 9:12 AM CDT Oxygen Saturation 98% 05/13/2025 9:12 AM CDT Inhaled Oxygen Concentration - - Weight 62.6 kg (138 lb) 05/13/2025 9:12 AM CDT Height 157.5 cm (5' 2) 05/13/2025 9:12 AM CDT Body Mass Index 25.24 05/13/2025 9:12 AM CDT Plan of Treatment Upcoming Encounters Date Type Department Care Team (Late st Contact Info) Description 06/30/2025 9:00 AM CDT Office Visit [facility] [place] [address] [facility] [address] [place] [address] Shan Sampson MD [address] [facility] [address] [place] [address] Health Maintenance Due Date Last Done Comments COVID-19 Vaccine ( season) 2024 10/26/2021, 03/27/2021, 02/27/2021 Annual Medicare Wellness Visit 10/03/2025 Postponed from 2011 (Future Appointment) DTaP, Tdap and Td Vaccines (2 - Td or Tdap) 12/22/2033 12/22/2023 Pneumococcal Vaccine: 50+ Years Completed 11/06/2016, 11/21/2012, 2011 Zoster Vaccines Completed 11/05/2019, 10/08, 07/12/2019, Additional history exists Dexa Scan (General) Completed 10/10/2022 Hepatitis C Completed 05/03/2024 RSV Immunization or 60+ Years Completed 07/01/2024 PHQ-2 (Physician [place]) Completed 11/29/2024 Meningococcal B Vaccine Aged Out No l onger eligible based on patient's age to complete this topic Meningococcal Vaccine Aged Out No miguel angel doris eligible based on patient's age to complete this topic RSV Immunizations Under 20 Months Aged Out No longer eligible based on patient's age to complete this topic Procedures Procedure Name Priority Date/Time Associated Diagnosis Comments HEPATITIS C ANTIBODY Routine 05/03/2024 11:24 AM CDT Need for hepatitis C screening test BONE DENSITY GENERIC (SCAN ORDER) 10/10/2022 from Last 3 Months or Most Recently Relevant to Health Maintenance Results * HEPATITIS C ANTIBODY ([facility] ONLY) (05/03/2024 11:24 AM CDT) HEPATITIS C AB Non Reactive Non Reacti [facility] 1 Comment: HCV antibody alone does not differentiate between previously resolved infection and active infection. Equivocal and Reactive HCV antibody results should be followed up with an HCV RNA test to support the diagnosis of active HCV infection. 05/03/2024 11:2 4 AM CDT 05/03/2024 Narrative [facility] - 05/04/2024 8:15 AM CDT Performed at: 01 - [facility] [id number] Machine Maintenance Supervisor: Raza Pichardo PhD, Phone: [phone] us Shan Sampson MD LABORATORY Final Result Performing Organization Address City/State/[facility] Co de Phone Number [facility] [address] [phone] [facility] 1 * BONE DENSITY GENERIC (10/10/2022) Anatomical Region Laterality Modality Other 10/10/2022 us Doc [facility] Scanned SCANNING Final Resu lt from Last 3 Months or Most Recently Relevant to Health Maintenance Insurance AETNA Care Teams Eligibility Supervisor Relationship Specialty Start Date End Date Shan Sampson MD [address] [facility] [address] [place] [id number] PCP - General INTERNAL MEDICINE 04/10/23
== END 2025-06-04 09:25 | disposition home or self-care (01) ==
LOC: ANHIMG 09:25
PROVIDERS: PCP Internal Medicine; Visit Provider Internal Medicine
DX: Z78.0 Asymptomatic menopausal state (principal); M85.852 Other specified disorders of bone density and structure, left thigh; M85.851 Other specified disorders of bone density and structure, right thigh
CPT/HCPCS: 77080

== ENCOUNTER 2025-09-04 14:26 | Outpatient (CLI) | payer MEDICARE, SELFPAY ==
--- NOTE | ~2025-09-04 | MM_ITS ---
EXAMINATION: MM screening sana BI w sheree HISTORY: Screening TECHNIQUE: Craniocaudal and mediolateral oblique 3-D tomosynthesis images were obtained and synthetic 2-D images were generated. CAD analysis was submitted and interpreted. COMPARISON: Comparison to multiple prior studies sequentially, with oldest reviewed study dated Comparison to multiple prior studies sequentially, with oldest reviewed study dated 12/29/2016. . BREAST PARENCHYMAL COMPOSITION: Dense: The breasts are heterogeneously dense, which may obscure small masses FINDINGS: There is no evidence of suspicious mass, calcification, or architectural distortion to suggest malignancy in either breast. There has been no suspicious interval change. IMPRESSION: 1. No mammographic evidence of malignancy. 2. Recommend routine screening mammography in one year. BI-RADS Category 1: Negative Reviewed, dictated and finalized at location B.
--- OUTSIDE RECORDS SUMMARY | 2025-09-04 14:59 | XMS_ITS | Clinical Summary ---
Author Organization [facility] Address [facility] [place] [address] Phone Care Team Providers Care Assurance Senior Manager Name Role Phone Unavailable Primary Care Provider Unavailabl e Allergies Active Allergy Reactions Criticality Noted Date Comments Codeine Hallucination Low 12/23/2022 Reaction: HALLUCINATION, , Medications amLODIPine (NORVASC) 10 mg tablet Take 10 mg by mouth daily. 08/01/2023 Active busPIRone (BUSPAR) 10 mg tablet Take 10 mg by mouth 3 times daily. Active dilTIAZem (TIAZAC) 300 mg Extended Release capsule Take 300 mg by mouth daily. 06/30/2025 Active lisinopriL (PRINIVIL) 40 mg tablet Take 40 mg by mouth daily. Active metoprolol succinate (TOPROL XL) 25 mg Extended Release 24 hour tablet Take 25 mg by mouth daily. 11/20/2022 Active pravastatin (PRAVACHOL) 20 mg tablet Take 20 mg by mouth daily with supper. 05/02/2023 Active Active Problems No known active problems Encounters Date Type Department Care Team Description 08/19/2025 External Device Data [facility]STRACTION Provider, Abstract 08/19/2025 External Device Data [facility]STRACTION Provider, Abstract 08/19/2025 External Device Data [facility]STRA[facility] Provider, Abstract 08/18/2025 8:44 AM CDT - 08/18/2025 9:35 AM CDT Emergency [facility] Emergency Department [address] [phone] Raquel Lopez DO Skin tear of right forearm without complication, initial encounter (Primary Dx); Fall, initial encounter Discharge Disposition: Home or Self Care from Last 3 Months Immunizations Immunization Administration Dates Next Due (ADACEL/BOOSTRIX)(10 YR UP) TDAP VACCINE, 0.5ML, IM 08/18/2025 Social History Tobacco Use Types Packs/Day Years Used Date Smoking Tobacco: Never Tobacco Cessation:Counseling Given: Not Answered Alcohol Use Standard Drinks/Week Comments Not Currently 0 (1 standard drink = 0.6 oz pur e alcohol) Food Insecurity Answer Date Recorded Do you find you are eating l ess than you should because you can t pay for food? No 08/18/2025 Transportation Needs Answer Date Record ed Have you gone without health care because you didn t have a way to get there? Or worry about transportation for future doctor visits, bulk picker medication, etc.? No 2024 Housing Stability Answer Date Recorded Do you worry you won t have a steady place to sleep or struggle to pay rent or mortgage? No 08/18/2025 Utility Needs Answer Date Recorded Do you have difficulty payin g for utility costs (electric, water or gas bills)? No 08/18/2025 Medication Needs Answer Date Recorded Have you skipped taking medi cation due to cost or worry you can t afford new medications? No 08/18/2025 Feeling Safe Answer Date Recorded Are you in a relationship wi th someone who hurts you emotionally and/or physically? No 08/18/2025 Comments Unknown Sex and Gender Information Value Date Recorded Sex Assigned at Not on file Legal Sex Female 8:39 AM CDT Gender Identity Not on file Sexual Orientation Not on file Last Filed Vital Signs Vital Sign Reading Time Taken Comments Blood Pressure 172/102 08/18/2025 8:48 AM CDT Pulse 88 08/18/2025 9:00 AM CDT Temperature 36.1 C (97 F) 08/18/2025 8:48 AM CDT Respiratory Rate 19 08/18/2025 8:48 AM CDT Oxygen Saturation 96% 08/18/2025 9:00 AM CDT Inhaled Oxygen Concentration - - Weight 67.4 kg (148 lb 9.6 oz) 08/18/2025 8:48 A M CDT Height 157.5 cm (5' 2) 08/18/2025 8:48 AM CDT Body Mass Index 27.18 08/18/2025 8:48 AM CDT Plan of Treatment Health Maintenance Due Date Last Done Comments RSV VACCINE (60+ or ) (1 - 1-dose 75+ series) 2021 INFLUENZA VACCINE (#1) 2025 4, 08/15/2023, 09/05/2022, Additional history exists OSTEOPOROSIS SCREENING 06/04/2030 06/04/2025, 2021 DTAP/TDAP/TD VACCINES (3 - T d or Tdap) 08/18/2035 08/18/2025, 12/22/2023 PNEUMOCOCCAL VACCINE 50+ YEARS Completed 0 11/06/2016, 11/21/2012, 2011 ZOSTER VACCINE Completed 11/05/2019, 07/12/2019 Procedures Procedure Name Priority Date/Time Associated Diagnosis Comments CT CHEST WO CONTRAST Stat 08/18/2025 9:06 AM CDT from Last 3 Months Results * CT CHEST WO CONTRAST (08/18/2025 9:06 AM CDT) Anatomical Region Laterality Modality Chest Computed Tomogra phy 08/18/2025 9:02 AM CDT Impressions 08/18/2025 9:17 AM CDT IMPRESSION: No acute intrathoracic process Narrative 08/18/2025 9:17 AM CDT PROCEDURE: CT CHEST WO CONTRAST WITH AUTOMATED EXPOSURE CONTROL UTILIZED. .CT and NM cardio studies performed at this institution in the last 12 months: 0 DATE: 08/18/2025 9:06 AM HISTORY: Chest trauma, blunt and pain COMPARISON: None FINDINGS: The lungs are clear with no consolidation, interstitial thickening or soft tissue nodules or mass lesions. No mediastinal or hilar lymphadenopathy is identified. The ascending thoracic aorta measures up to 4.3 cm. There is mild atherosclerotic disease of the thoracic aorta. The heart is of normal size with trace pericardial thickening. There is no pleural effusion. There are mild scarring changes in the lower lungs. No acute osseous abnormality is identified. Procedure Note Pascual Gray MD - 08/18/2025 PROCEDURE: CT CHEST WO CONTRAST WITH AUTOMATED EXPOSURE CONTROL UTILIZED. .CT and NM cardio studies performed at this institution in the last 12 months: 0 DATE: 08/18/2025 9:06 AM HISTORY: Chest trauma, blunt and pain COMPARISON: None FINDINGS: The lungs are clear with no consolidation, interstitial thickening or soft tissue nodules or mass lesions. No mediastinal or hilar lymphadenopathy is identified. The ascending thoracic aorta measures up to 4.3 cm. There is mild atherosclerotic disease of the thoracic aorta. The heart is of normal size with trace pericardial thickening. There is no pleural effusion. There are mild scarring changes in the lower lungs. No acute osseous abnormality is identified. IMPRESSION: No acute intrathoracic process Raquel Mora DO CT ORDERABLES Final Re sult from Last 3 Months Insurance [employer] [facility]
--- OUTSIDE RECORDS SUMMARY | 2025-09-04 15:00 | XMS_ITS | Patient Health Record ---
Author Organization [facility] Address [address] [place] [address] Care Team Providers Care Industrial Green Systems Designer Name Role Phone [facility] Unavailable [phone] Reason For Referral No Information Plan Of Treatment No Information
--- OUTSIDE RECORDS SUMMARY | 2025-09-04 15:00 | XMS_ITS | Data Portability ---
Author Organization [facility] Address [address] [place] [address] Assessment No assessment recorded. Plan of Treatment Reminders Order Date Submit Date Provider Last Modified By Organization Details Last Modified Time Details Appointments None recorded. Lab None recorded. Referral None recorded. Procedures None recorded. Surgeries None recorded. Imaging None recorded. Medication Orders estradiol 0.01% (0.1 mg/gram) vaginal cream 2021 022 [facility] [address], [address] [place] [address], [id number], 12:05:05 Diflucan 150 mg tablet 2020 022 [facility] [address], [address] [place] [address], [id number], 21:46:43 clotrimazo le-betamet hasone 1 %-0.05 % topical cream 2020 022 [facility] [address], [address] [place] [address], [id number], 11:40:17 Patient TargetsNo targets recorded. Patient InstructionsNo instructions recorded. Reason for Referral None Reported. Results Created Date Observation Date Name Description Value Unit Range Abnormal Flag Note LastModifiedBy Organization Detail LastModifiedTime 10/07/2010/07/2021 VAGIN ITIS/ VAGIN OSIS, DNA PROBE gracy sp. detection, direct probe Negati ve negati ve Not Available [facility] (Lab) [address], [place], [address], 10/08/2021 19:01:09 10/07/20 21 10/07/2021 VAGIN ITIS/ VAGIN OSIS, DNA PROBE gardnerella vag. detection, direct probe Negati ve negati ve Not Available [facility] (Lab) [address] [facility], [place], [address], 10/08/2021 19:01:09 10/07/20 21 10/07/2021 VAGIN ITIS/ VAGIN OSIS, DNA PROBE trichomonas vag. detection, direct probe Negati ve negati ve Not Available [facility] (Lab) [address] [facility], [place], [address], 10/08/2021 19:01:09 02/10/20 22 02/09/2022 VAGIN ITIS/ VAGIN OSIS, DNA PROBE gracy sp. detection, direct probe Negati ve negati ve Not Available [facility] (Lab) [address] [facility], [place], [address], 02/10/2022 12:25:21 02/10/20 22 02/09/2022 VAGIN ITIS/ VAGIN OSIS, DNA PROBE gardnerella vag. detection, direct probe Negati ve negati ve Not Available [facility] (Lab) [address] [facility], [place], [address], 02/10/2022 12:25:21 02/10/20 22 02/09/2022 VAGIN ITIS/ VAGIN OSIS, DNA PROBE trichomonas vag. detection, direct probe Negati ve negati ve Not Available [facility] (Lab) [address] [place], [address], 02/10/2022 12:25:21 Result Notes None recorded. Procedures Surgical History Date Name Laterality Status Provider Name and Address Organization Details Recorded Time Appendectomy completed [facility] 10/07/2021 11:15:05 Colonoscopy completed [facility] 10/07/2021 11:15:05 Orthopedic Surgery completed [facility] 10/07/2021 11:15:05 Partial Hysterectomy completed [facility] 10/07/2021 11:15:05 Imaging Results None recorded. Procedure Notes None recorded. Medical Equipment None Reported. Allergies Allergen ID Allergen Name Allergen Category Reaction Reaction Severity Criticality Documentation Date Start Date Code Code System Note Provider Name and Address Organization Details Recorded Time 22670 codeine medicatio n hallucina tions Not available Not available 10/07/2021 2670 RxNorm Shilpi [facility] 11:14:46 Medications Name Sig Start Date Stop Date Status Note LastModified by Organization Details LastModified Time fluconazole 100 mg tablet TAKE 1 TABLET BY MOUTH ONCE DAILY 02/08 completed Not Available Not Available Not Available metoprolol succinate ER 50 mg tablet,exte nded release 24 hr 02/09 completed Not Available Not Available Not Available Diflucan 150 mg tablet Take 1 tablet every day by oral route for 7 days. 02/08 completed Not Available Not Available Not Available hydralazine 25 mg tablet 02/09 completed Not Available Not Available Not Available amlodipine 2.5 mg tablet 02/08 completed Not Available Not Available Not Available amlodipine 5 mg tablet 10/06 completed Not Available Not Available Not Available omeprazole 40 mg capsule,del ayed release active Not Available Not Available Not Available oxycodone-a cetaminophe n 5 mg-325 mg tablet 02/09 completed Not Available Not Available Not Available alprazolam 0.5 mg tablet active Not Available Not Available Not Available amlodipine 10 mg tablet active Not Available Not Available Not Available buspirone 10 mg tablet active Not Available Not Available Not Available clotrimazol e-betametha sone 1 %-0.05 % topical cream APPLY TO THE AFFECTED AND SURROUNDI NG AREAS OF SKIN BY TOPICAL ROUTE 2 TIMES PER DAY IN THE MORNING AND EVENING FOR 2 WEEKS 02/09 completed Not Available Not Available Not Available metoprolol succinate ER 25 mg tablet,exte nded release 24 hr 02/08 completed Not Available Not Available Not Available estradiol 0.01% (0.1 mg/gram) vaginal cream USE CREAM TOPICALLY TO AFFECTED AREA ONCE DAILY AT BEDTIME FOR 30 DAYS active Not Available Not Available No t Available lisinopril 40 mg tablet active Not Available Not Available Not Available fluticasone propionate 50 mcg/actuati on nasal spray,suspe nsion 02/09 completed Not Available Not Available Not Available gentamicin 0.1 % topical ointment 10/06 completed Not Available Not Available Not Available spironolact one 50 mg tablet active Not Available Not Available Not Available amoxicillin 875 mg-potassiu m clavulanate 125 mg tablet 10/06 completed Not Available Not Available Not Available neomycin-po lymyxin-hyd rocort 3.5 mg-10,000 unit/mL-1 % ear drops,susp 02/09 completed Not Available Not Available Not Available escitalopra m 10 mg tablet 02/09 completed Not Available Not Available Not Available ciprofloxac in 0.3 %-dexametha sone 0.1 % ear drops,suspe nsion 10/06 completed Not Available Not Available Not Available bupropion HCl XL 300 mg 24 hr tablet, extended release 02/09 completed Not Available Not Available Not Available bupropion HCl XL 150 mg 24 hr tablet, extended release 02/08 completed Not Available Not Available Not Available duloxetine 60 mg capsule,del ayed release TAKE 2 CAPSULES BY MOUTH ONCE DAILY active Not Available Not Available No t Available hydrochloro thiazide 12.5 mg tablet 02/09 completed Not Available Not Available Not Available potassium chloride ER 20 mEq tablet,exte nded release 10/06 completed Not Available Not Available Not Available Vitals Date Recorded Systolic And Diastolic Provider Name and Address Organization Details Last Updated DateTime 02/09/2022 130/78 mm[Hg] Patricia Orta, [facility]- [address], [place], [address], [place] - [facility] 02/09/2022 12:21:49 Date Recorded Body height Body mass index (BMI) Body weight Provider Name and Address Organization Details Last Updated DateTime 02/09/2022 157.48 cm 26.8 kg/m2 41539.64 g Kimberly Marinelli [facility] 02/09/2022 11:38:38 Date Recorded Body height Body mass index (BMI) Body weight Systolic And Diastolic Provider Name and Address Organization Details Last Updated DateTime 10/07/2021 157.48 cm 26.9 kg/m2 16694.08 g 127/80 mm[Hg] Shilpi Rose [facility] 10/07/2021 11:41:38 Social History Question Answer Notes LastModified by Organizat ion Details LastModified Time Tobacco Smoking Status Never Smoker Kimberly Marinelli [facility] 02/09/2022 11:39:14 Do You Have An Advance Directive? Yes Information n ot available 10/07/2021 Are You Blind Or Do You Have Difficulty Seeing? No Information n ot available 10/07/2021 What Is Your Level Of Caffeine Consumption? Moderate Information not available 10/07/2021 How Much Tobacco Do You Chew? None Information not available 10/07/2021 In The 14 Days Before Symptom Onset, Have You Had Close Contact With A Laboratory-confirm ed COVID-19 While That Case Was Ill? No Information n ot available 10/07/2021 In The 14 Days Before Symptom Onset, Have You Had Close Contact With A Person Who Is Under Investigation For COVID-19 While That Person Was Ill? No Information not available 10/07/2021 Have You Been To An Area Known To Be High Risk For COVID-19? No Information not available 10/07/2021 Are You Deaf Or Do You Have Serious Difficulty Hearing? No Information not available 10/07/2021 What Type Of Diet Are You Following? REGULAR Information n ot available 02/09/2022 What Is The Highest Grade Or Level Of School You Have Completed Or The Highest Degree You Have Received? [id number] Information not available 10/07/2021 Are There Any Guns Present In Your Home? No Information not available 10/07/2021 Do You Use Your Seat Belt Or Car Seat Routinely? Yes Information not available 10/07/2021 Do You Have Smoke And Carbon Monoxide Detectors In Your Home? Yes Information not available 10/07/2021 How Much Tobacco Do You Smoke? No Information not available 10/07/2021 Do You Use Sunscreen Routinely? No Information not available 10/07/2021 Have You Used IV Drugs? No Information not available 10/07/2021 Do You Have Difficulty Walking Or Climbing Stairs? No Information not available 02/09/2022 Sex: Unknown Functional Status Question Answer Note LastModified by Organizat ion Details LastModified Time Do you use any illicit or recreational drugs? No Information not available 10/07/2021 What is your level of alcohol consumption? None Information not available 10/07/2021 Are you able to walk independently without assistance or assistive devices? YESWOREST Information not available 02/09/2022 Are you able to care for yourself independently? 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 No Information not available 02/09/2022 What is your exercise level? None Information not available 10/07/2021 Mental Status Question Answer Note LastModified by Organization D etails LastModified Time Do you feel stressed (tense, restless, nervous, or anxious, or unable to sleep at night)? [id number] Information not available 10/07/2021 Family History Relationship Description Onset Age of this Age Resolved Age Notes LastModified by Organization Details LastModified Time Maternal Grandmother Osteoporosis Not available 10/07/2021 11:14:49 Paternal Grandfather Disorder of lung Not available 2020 11:14:49 Father Family history unknown Not available 2020 11:14:49 Mother Family history unknown Not available 2020 11:14:49 Brother Family history unknown Not available 2020 11:14:49 Sister Family history unknown Not available 2020 11:14:49 Daughter Multiple sclerosis Not available 2020 11:14:49 Daughter Pre-eclampsi a Not available 2020 11:14:49 Medical History Condition Response Anxiety Disorder Y Arthritis Y Depression/ depression Y Acid Reflux (GERD) Y Headaches Y GI Problems Y Gynecological History Statement/Question Response Abnormal Pap N STIs/STDs N Was last menstrual period normal N HPV Vaccine N Current Control Method Hysterectom y Age at First Child 20 Are cycles usually normal N Sexually Active? N Age of first menstrual cycle 13 Date of Last Pap Smear Sexual Problems? N Y Obstetrics History GPAL:G 4 P 3 0 1 3 Type Value Full Term 3 Spontaneous 1 Living 3 Total 4 Past Encounters Encounter ID Performer Location Encounter Start Date Encounter Closed Date Diagnosis/Indication Diagnosis SNOMED-CT Code Diagnosis ICD10 Code Diagnosis IMO Codes Diagnosis Note [id number] Cisco Craig MD [place] [address] [address] 10/07/2021 11:03:15 10/07/2021 12:06:10 Vaginitis 18004295 N76.0 this patient is a 76-year-ol d female with vulvar irritation and vulvar itching. She has intense burning at the vulva. She denies any vaginal discharge. She denies any Bleeding. She is examined. There is marked a vulvar and distal vaginal erythema. There is some white discharge. A specimen was obtained. We will treat for 2 weeks with topical antifungal / steroid cream. She also take 1 week of daily Diflucan. She return in 2 weeks. We spent over 15 minutes [facility]fa [facility]. [id number] [facility] [address] [address] 02/09/2022 11:24:47 02/09/2022 12:35:52 Atrophic vaginitis 38572474 N95.2 Today we discussed the following recommenda tions: 1. Etrogen cream topical use. She will place this cream on at bedtime whenever she does not wear a pad and will apply it AFTER she uses crisco first. 2. VCG's daily moisturizi ng, change soaps etc. Sheet given for additional home review. USE NO OTC PRODUCTS NOT LISTED!! 3. Vaseline jelly coat AFTER use of crisco for the day to provide a barrier to her skin from the pad filled with moisture. 4. F/U x 2wks to monitor progress 5. Ice packs to vulva if needed. 6. Sleep no underwear/ pad at night. 7. Consider trial of pessary moving forward. Time spent in visit is a total of 30 mins with at least 50% of visit consisting of counseling and review of plan of care.Addit ional precaution dal[place] measures were taken to minimize potential exposure to the Covid-19 virus during this patient s visit, including available hand waste collector upon arrive, temperatur e check and being asked a series of screening questions. All staff wore face coverings during this encounter, as well as provided additional cleaning and sanitizing of all surfaces, including countertop s, pens, chairs, door handles, light switches, etc, prior to and following the patient s visit. Female uri nary stress incontinence 82009506 N39.3 Consider reinitiati ng a pessary for АННА so we can decrease pad use as much as possible moving forward.Wi ll need to resolve the vulvar irritation that is occurring now first; so she can tolerate pessary fittings/r emoval/ins ertions. e is open to this idea. Counseled on pessary device and indication s for use. Health Concerns Section Related Observation LastModified by Organization Detai ls LastModified Time None Recorded Concern Status LastModified by Organization Details LastModified Time None Recorded Advance Directives Directive Y: Payers Insurance Date Sequence Insurance Name Policy Number Policy Castañeda Covered Member ID Castañeda Member ID Guarantor Name 02/26/[address] [facility] (MEDICARE REPLACEMENT/A DVANTAGE - HMO) [id number] Yoli Valdez [id number] Yoli Valdez Notes Date Note Type Note Provider Name and Address Organization Details Recorded Time 10/07/2021 text/html Vaginal/Vulvar ProblemReported by Patient this patient is a 76-year-old female with vulvar irritation and vulvar itching. She has intense burning at the vulva. She denies any vaginal discharge. She denies any Bleeding. She is examined. There is marked a vulvar and distal vaginal erythema. There is some white discharge. A specimen was obtained. We will treat for 2 weeks with topical antifungal/ steroid cream. She also take 1 week of daily Diflucan. She return in 2 weeks. We spent over 15 minutes [id number]. Cisco Craig MD [address], [place], [address], [facility] 10/07/2021 12:04:07 02/09/2022 text/html Vaginal/Vulvar ProblemReported by PatientHere today for vaginal irritation that has caused tears in her skin that produce light pink streaks on her pads she wears for АННА.Additional sx's include: Significant vaginal itching, significant burning (a raw feeling), and erythema that she noticed when looking with a mirror. She is not SAWas treated for suspected yeast infection 10/2021 (Vag swab was neg).Wears daily peripads (uses 2-3x/day)Hx of hysterectomy with bladder sling (had repairs of bladder 2x due to intolerance of mesh placed; failed second bladder repair using pig skin.).Has used pessary in the past prior to these surgeries.ROS as noted in the HPI [facility] [address], [place], [address], [facility] 02/09/2022 12:21:56 OBGyn Episode Ob Episode Information Episode Created Date Number of Fetuses Patient Bloodtype Patient rh Status Prepregnancy Weight lbs Domestic Partner Domestic Partner Phone Father Name Core Checker Status 10/07/20 21 1 CLOSED Fetus Data First Name Last Name Admitted to NICU Weight (g) Sex Living Outcome Pediatric Complications Fetus ID Race Codes Race Delivery Type 3033.16 [id number] M Full Term [id number] Vaginal Delivery Cliff Calculation Initial Cliff Date Initial Exam Date Initial Exam Provider Initial Ultrasound Date Last Menstrual Period Date Ultra Sound Weeks Gestation 0 Eighteen To Twenty Week Cliff Update Ultra Sound Date Fundal Height At Umbil Quickening Date Ultra Sound Latest Weeks Gestation Final Lciff Confirmed By Final Cliff Confirmed Date Final Cliff Date Ultra Sound Latest Days Gestation 0 0 Menstrual History Last Menstrual Date Menses Monthly On Bcp Conception Prior Menses Frequency Hcg Plus Date Menarche Onset Age Delivery Information Delivery Date Delivery Type Labor Anesthesia Weeks Gestation Incision Type Labor Labor Length Hrs Delivered By Post Complications Tubal Sterilization Discharge Date Comments 5 Chandana Discharge Information Feeding Method Contraceptive Method Maternal HG B and HCT Levels Ob Episode Information Episode Created Date Number of Fetuses Patient Bloodtype Patient rh Status Prepregnancy Weight lbs Domestic Partner Domestic Partner Phone Father Name Core Checker Status 10/07/20 21 1 CLOSED Fetus Data First Name Last Name Admitted to NICU Weight (g) Sex Living Outcome Pediatric Complications Fetus ID Race Codes Race Delivery Type , Spontane ous [id number] Cliff Calculation Initial Cliff Date Initial Exam Date Initial Exam Provider Initial Ultrasound Date Last Menstrual Period Date Ultra Sound Weeks Gestation 0 Eighteen To Twenty Week Cliff Update Ultra Sound Date Fundal Height At Umbil Quickening Date Ultra Sound Latest Weeks Gestation Final Cliff Confirmed By Final Cliff Confirmed Date Final Cliff Date Ultra Sound Latest Days Gestation 0 0 Menstrual History Last Menstrual Date Menses Monthly On Bcp Conception Prior Menses Frequency Hcg Plus Date Menarche Onset Age Delivery Information Delivery Date Delivery Type Labor Anesthesia Weeks Gestation Incision Type Labor Labor Length Hrs Delivered By Post Complications Tubal Sterilization Discharge Date Comments 2 Discharge Information Feeding Method Contraceptive Method Maternal HG B and HCT Levels Ob Episode Information Episode Created Date Number of Fetuses Patient Bloodtype Patient rh Status Prepregnancy Weight lbs Domestic Partner Domestic Partner Phone Father Name Core Checker Status 10/07/20 21 1 CLOSED Fetus Data First Name Last Name Admitted to NICU Weight (g) Sex Living Outcome Pediatric Complications Fetus ID Race Codes Race Delivery Type 2919.77 [id number] F Full Term [id number] Vaginal Delivery Cliff Calculation Initial Cliff Date Initial Exam Date Initial Exam Provider Initial Ultrasound Date Last Menstrual Period Date Ultra Sound Weeks Gestation 0 Eighteen To Twenty Week Cliff Update Ultra Sound Date Fundal Height At Umbil Quickening Date Ultra Sound Latest Weeks Gestation Final Cliff Confirmed By Final Cliff Confirmed Date Final Cliff Date Ultra Sound Latest Days Gestation 0 0 Menstrual History Last Menstrual Date Menses Monthly On Bcp Conception Prior Menses Frequency Hcg Plus Date Menarche Onset Age Delivery Information Delivery Date Delivery Type Labor Anesthesia Weeks Gestation Incision Type Labor Labor Length Hrs Delivered By Post Complications Tubal Sterilization Discharge Date Comments 5 Jessica Discharge Information Feeding Method Contraceptive Method Maternal HG B and HCT Levels Ob Episode Information Episode Created Date Number of Fetuses Patient Bloodtype Patient rh Status Prepregnancy Weight lbs Domestic Partner Domestic Partner Phone Father Name Core Checker Status 10/07/20 21 1 CLOSED Fetus Data First Name Last Name Admitted to NICU Weight (g) Sex Living Outcome Pediatric Complications Fetus ID Race Codes Race Delivery Type 4422.52 2 M Full Term [id number] Vaginal Delivery Cliff Calculation Initial Cliff Date Initial Exam Date Initial Exam Provider Initial Ultrasound Date Last Menstrual Period Date Ultra Sound Weeks Gestation 0 Eighteen To Twenty Week Cliff Update Ultra Sound Date Fundal Height At Umbil Quickening Date Ultra Sound Latest Weeks Gestation Final Cliff Confirmed By Final Cliff Confirmed Date Final Cliff Date Ultra Sound Latest Days Gestation 0 0 Menstrual History Last Menstrual Date Menses Monthly On Bcp Conception Prior Menses Frequency Hcg Plus Date Menarche Onset Age Delivery Information Delivery Date Delivery Type Labor Anesthesia Weeks Gestation Incision Type Labor Labor Length Hrs Delivered By Post Complications Tubal Sterilization Discharge Date Comments 7 Dakota Discharge Information Feeding Method Contraceptive Method Maternal HG B and HCT Levels
--- OUTSIDE RECORDS SUMMARY | 2025-09-04 15:00 | XMS_ITS | Patient Health Record ---
Author Organization [facility] [employer] Address [address] [place] [address] Care Team Providers Care Military Administrative Technician Name Role Phone Shan Sampson MD Primary Care Provider Justus Hui Unavailable [phone] Santos Waters Unavailable [phone] Allergies Allergen (clinical drug ingredient) Drug/Non Drug Allergy documented on EMR Reaction Allergy Type Onset Date Status acetaminophen / codeine Acetaminophen-Codeine Unknown Drug Allergy 03/25/2024 Active Reason For Referral Reason TMS initial treatmen t 1 session tms 35 repetitive Diagnosis 1 Major depressive dis order, recurrent severe without psychotic features (F33.2) Referred Organization [facility] Referred Provider Santos Waters Referred Address [address],[place], [place],[address], Referred Provider Specialty Psychiatry Referral Priority Routine Medications Medication SIG (Take, Route, Frequency, Duration) Notes Start Date End Date Status Metoprolol Succinate ER 50 MG Tablet Extended Release 24 Hour TAKE 1 TABLET DAILY Oral; Duration: 90 Days Active Belsomra 10 MG Tablet 1 tablet at bedtim e Orally Once a day; Duration: 90 days 08/12/2025 02/08/2026 Active Desvenlafaxine Succinate ER 50 MG Tablet Extended Release 24 Hour 1 tablet Orally Once a day; Duration: 90 days 08/12/2025 Active QUEtiapine Fumarate 100 MG Tablet 1 tablet at bedtime Orally Once a day; Duration: 90 days 08/12/2025 Active Pravastatin Sodium 20 MG Tablet TAKE 1 TABLET NIGHTLY AT BEDTIME Oral; Duration: 90 Days Active Immunizations Vaccine [...] History Observation Description Sex Assigned At Female Social History Additional Details Category Social Info Options Details Migrated Social History Migrated Social History Alcohol Intake: None 01/31/2019,Tobacco Years: Never smoker 06/23/2022,Smoking Status: 0 12/26/2023 Problems Problem Type SNOMED Code ICD Code Onset Dates Problem Status W/U Status Risk Notes Problem Mild recurrent major depression (96489732) Major depressive disorder, recurrent, mild (F33.0) 03/25/20 Active confirmed Problem Severe recurrent major depression without psychotic features (78089517) Major depressive disorder, recurrent severe without psychotic features (F33.2) Active confirmed Problem Recurrent major depression in full remission (10643010) Major depressive disorder, recurrent, in full remission (F33.42) Active confirmed Problem Generalized anxiety disorder (31122020) Generalized anxiety disorder (F41.1) Active confirmed Problem Insomnia disorder related to another mental disorder (92637982) Insomnia due to other mental disorder (F51.05) Active confirmed Problem Attention deficit hyperactivity disorder (778670583) ADHD (attention deficit hyperactivity disorder), combined type (F90.2) Active confirmed Problem Mild cognitive disorder (877886755) Mild cognitive disorder (F09) Active confirmed Problem Mixed hyperlipidemia (416508947) Mixed hyperlipidemia (E78.2) 04/29/20 Active confirmed Problem Essential hypertension (87603800) Essential hypertension (I10) 01/24/20 Active confirmed Vital Signs Heart Rate 65 /min 08/12/2025 Height-cm 157.48 cm 08/12/2025 Blood pressure diastolic 82 mm Hg 08/12/2025 Weight-kg 63.5 kg 08/12/2025 Height 62.00 in 08/12/2025 Blood pressure systolic 126 mm Hg 08/12/2025 Weight 140 lbs 08/12/2025 BMI 25.6 kg/m2 08/12/2025 Encounters Encounter Location Date Provider Diagnosis [facility] [address] [place] [address] 09/24/2024 Justus Mike Generalized anxiety disorder F41.1 ; Major depressive disorder, recurrent severe without psychotic features F33.2 and Insomnia due to other mental disorder F51.05 [facility] [address] [place] [address] 10/10/2024 Justus Mike Generalized anxiety disorder F41.1 ; Major depressive disorder, recurrent severe without psychotic features F33.2 and Insomnia due to other mental disorder F51.05 [facility] [address] [place] [address] 10/22/2024 Justus Mike Generalized anxiety disorder F41.1 ; Major depressive disorder, recurrent severe without psychotic features F33.2 and Insomnia due to other mental disorder F51.05 [facility] [address] [place] [address] 10/25/2024 Santos Waters Generalized anxiety disorder F41.1 ; Major depressive disorder, recurrent severe without psychotic features F33.2 and Insomnia due to other mental disorder F51.05 [facility], [facility] [address] [place] [address] 11/05/2024 Justus Mike Generalized anxiety disorder F41.1 ; Major depressive disorder, recurrent severe without psychotic features F33.2 and Insomnia due to other mental disorder F51.05 [facility], [facility] [address] [place] [address] 11/07/2024 Santos Evelin Major depressive disorder, recurrent severe without psychotic features F33.2 [facility], [facility] [address] [place] [address] 11/08/2024 Santos Evelin Major depressive disorder, recurrent severe without psychotic features F33.2 [facility], [facility] [address] [place] [address] 11/13/2024 Santos Evelin Major depressive disorder, recurrent severe without psychotic features F33.2 [facility], [facility] [address] [place] [address] 11/14/2024 Santos Evelin Major depressive disorder, recurrent severe without psychotic features F33.2 [facility], [facility] [address] [place] [address] 11/15/2024 Santos Evelin Major depressive disorder, recurrent severe without psychotic features F33.2 [facility], [facility] [address] [place] [address] 11/18/2024 Santos Evelin Major depressive disorder, recurrent severe without psychotic features F33.2 [facility], [facility] [address] [place] [address] 11/18/2024 Santos Evelin Generalized anxiety disorder F41.1 ; Major depressive disorder, recurrent severe without psychotic features F33.2 ; Mixed hyperlipidemia E78.2 ; Essential hypertension I10 ; Insomnia due to other mental disorder F51.05 and Mild cognitive disorder F09 [facility], [facility] [address] [place] [address] 11/19/2024 Santos Evelin Major depressive disorder, recurrent severe without psychotic features F33.2 [facility], [facility] [address] [place] [address] 11/20/2024 Santos Evelin Major depressive disorder, recurrent severe without psychotic features F33.2 [facility], [facility] [address] [place] [address] 11/21/2024 Santos Evelin Major depressive disorder, recurrent severe without psychotic features F33.2 [facility], [facility] [address] [place] [address] 11/21/2024 Santos Evelin Mild cognitive disor fior F09 [facility], [facility] [address] [place] [address] 11/22/2024 Santos Evelin Major depressive disorder, recurrent severe without psychotic features F33.2 [facility], [facility] [address] [place] [address] 11/25/2024 Santos Evelin Major depressive disorder, recurrent severe without psychotic features F33.2 [facility], [facility] [address] [place] [address] 11/26/2024 Santos Evelin Major depressive disorder, recurrent severe without psychotic features F33.2 [facility], [facility] [address] [place] [address] 11/27/2024 Santos Evelin Major depressive disorder, recurrent severe without psychotic features F33.2 [facility], [facility] [address] [place] [address] 11/28/2024 Santos Evelin Major depressive disorder, recurrent severe without psychotic features F33.2 [facility], [facility] [address] [place] [address] 12/02/2024 Santos Evelin Major depressive disorder, recurrent severe without psychotic features F33.2 [facility], [facility] [address] [place] [address] 12/03/2024 Santos Evelin Major depressive disorder, recurrent severe without psychotic features F33.2 [facility], [facility] [address] [place] [address] 12/04/2024 Santos Evelin Major depressive disorder, recurrent severe without psychotic features F33.2 [facility], [facility] [address] [place] [address] 12/05/2024 Santos Evelin Generalized anxiety disorder F41.1 ; Major depressive disorder, recurrent severe without psychotic features F33.2 ; Mixed hyperlipidemia E78.2 ; Essential hypertension I10 ; Insomnia due to other mental disorder F51.05 and Mild cognitive disorder F09 [facility], [facility] [address] [place] [address] 12/05/2024 Santos Evelin Major depressive disorder, recurrent severe without psychotic features F33.2 [facility], [facility] [address] [place] [address] 12/06/2024 Santos Evelin Major depressive disorder, recurrent severe without psychotic features F33.2 [facility], [facility] [address] [place] [address] 12/09/2024 Santos Evelin [facility], [facility] [address] [place] [address] 12/10/2024 Santos Evelin Major depressive disorder, recurrent severe without psychotic features F33.2 [facility], [facility] [address] [place] [address] 12/11/2024 Santos Evelin Major depressive disorder, recurrent severe without psychotic features F33.2 [facility], [facility] [address] [place] [address] 12/12/2024 Santos Evelin Major depressive disorder, recurrent severe without psychotic features F33.2 [facility], [facility] [address] [place] [address] 12/16/2024 Santos Evelin Major depressive disorder, recurrent severe without psychotic features F33.2 [facility], [facility] [address] [place] [address] 12/17/2024 Santos Evelin Major depressive disorder, recurrent severe without psychotic features F33.2 [facility], [facility] [address] [place] [address] 12/18/2024 Santos Evelin Major depressive disorder, recurrent severe without psychotic features F33.2 [facility], [facility] [address] [place] [address] 12/19/2024 Santos Evelin Major depressive disorder, recurrent severe without psychotic features F33.2 [facility], [facility] [address] [place] [address] 12/20/2024 Santos Evelin Major depressive disorder, recurrent severe without psychotic features F33.2 [facility], [facility] [address] [place] [address] 12/23/2024 Santos Evelin Major depressive disorder, recurrent severe without psychotic features F33.2 [facility], [facility] [address] [place] [address] 12/25/2024 Santos Evelin Major depressive disorder, recurrent severe without psychotic features F33.2 [facility], [facility] [address] [place] [address] 12/27/2024 Santos Evelin Major depressive disorder, recurrent severe without psychotic features F33.2 [facility], [facility] [address] [place] [address] 12/31/2024 Santos Evelin Major depressive disorder, recurrent severe without psychotic features F33.2 [facility], [facility] [address] [place] [address] 01/01/2025 Santos Evelin Major depressive disorder, recurrent severe without psychotic features F33.2 [facility], [facility] [address] [place] [address] 01/03/2025 Santos Evelin Major depressive disorder, recurrent severe without psychotic features F33.2 [facility], [facility] [address] [place] [address] 01/06/2025 Santos Evelin Major depressive disorder, recurrent severe without psychotic features F33.2 [facility], [facility] [address] [place] [address] 01/08/2025 Santos Evelin Major depressive disorder, recurrent severe without psychotic features F33.2 [facility], [facility] [address] [place] [address] 01/08/2025 Santos Evelin Benign essential HTN I10 ; Generalized anxiety disorder F41.1 ; Major depressive disorder, recurrent severe without psychotic features F33.2 ; Mixed hyperlipidemia E78.2 ; Essential hypertension I10 ; Insomnia due to other mental disorder F51.05 and Mild cognitive disorder F09 [facility], [facility] [address] [place] [address] 01/13/2025 Santos Evelin Major depressive disorder, recurrent severe without psychotic features F33.2 [facility] [address] [place] [address] 01/15/2025 Santos Kirkam Encounter for screen ing for cardiovascular disorders Z13.6 ; Encounter for screening for depression Z13.31 ; Benign essential HTN I10 ; Generalized anxiety disorder F41.1 ; Major depressive disorder, recurrent severe without psychotic features F33.2 ; Mixed hyperlipidemia E78.2 ; Essential hypertension I10 ; Insomnia due to other mental disorder F51.05 and Mild cognitive disorder F09 [place] [address] [place] [address] 02/12/2025 Justus Mike Major depressive disorder, recurrent, in full remission F33.42 ; Encounter for screening for depression Z13.31 ; Encounter for screening for cardiovascular disorders Z13.6 ; Generalized anxiety disorder F41.1 and Insomnia due to other mental disorder F51.05 [place] [address] [address] [address] [address] [place] [address] 05/15/2025 Justus Mike Major depressive disorder, recurrent, in full remission F33.42 ; Generalized anxiety disorder F41.1 and Insomnia due to other mental disorder F51.05 [place] [address] [place] [address] 08/12/2025 Justus Mike Major depressive disorder, recurrent, in full remission F33.42 ; Generalized anxiety disorder F41.1 and Insomnia due to other mental disorder F51.05 [place] [address] [facility] [address] [place] [address] 09/10/2024 Justus Mike [place] [address] [place] [address] 09/25/2024 Justus Mike [facility], [place] [address] [facility] [address] [place] [address] 10/16/2024 Justus Mike [place] [address] [facility] [address] [place] [address] 11/19/2024 Justus Jenkinsa Assessments Encounter Date Diagnosis (ICD Code) Assessment Notes Treatment Notes Treatment Clinical Notes Section Notes 09/24/2024 Generalized anxiety disorder (ICD-10 - F41.1) [...] for TMS Treatment - Plan: - Have special technical operations officer obtain informed consent from patient before initiating TMS treatment. - Find alternative method for obtaining consent if special technical operations officer is unavailable. Patient Education - Plan: [...] to start working. - Prescriptions sent to [facility] pharmacy. Anxiety - Assessment: Patient reports ongoing [...] to start working. - Prescriptions sent to [facility] pharmacy. Anxiety - Assessment: Patient reports ongoing [...] to start working. - Prescriptions sent to [facility] pharmacy. Anxiety - Assessment: Patient reports ongoing [...] to start working. - Prescriptions sent to [facility] pharmacy. Anxiety - Assessment: Patient reports ongoing [...] recurrent, in full remission (ICD-10 - F33.42) 08/12/2025 Major depressive disorder, recurrent, in full remission (ICD-10 - F33.42) Depression is in remission. Continue Desvenlafaxine er 50mg daily, quetiapine 100mg hs. Insomnia is well managed with Belsomra at bedtime. She denies any concerns. 08/12/2025 Generalized anxiety disorder (ICD-10 - F41.1) stable Depression is in remission. Continue Desvenlafaxine er 50mg daily, quetiapine 100mg hs. Insomnia is well managed with Belsomra at bedtime. She denies any concerns. 08/12/2025 Insomnia due to other mental disorder (ICD-10 - F51.05) Depression is in remission. Continue Desvenlafaxine er 50mg daily, quetiapine 100mg hs. Insomnia is well managed with Belsomra at bedtime. She denies any concerns. 05/15/2025 Generalized anxiety disorder (ICD-10 - F41.1) stable 01/15/2025 Encounter for screening for depression (ICD-10 [...] to start working. - Prescriptions sent to [facility] pharmacy. Anxiety - Assessment: Patient reports ongoing [...] for TMS Treatment - Plan: - Have special technical operations officer obtain informed consent from patient before initiating TMS treatment. - Find alternative method for obtaining consent if special technical operations officer is unavailable. Patient Education - Plan: - Provide detailed information about TMS procedure, including: - Use of helmet with magnetic coil - Sensation of tapping on the head - Duration of each session (about 19 minutes with 2-second pulses and 20-second breaks) 10/10/2024 Major depressive disorder, recurrent severe without [...] sooner if the patient starts TMS therapy. 09/24/2024 Major depressive disorder, recurrent severe without [...] with the patient once approval is obtained 02/12/2025 Encounter for screening for depression (ICD-10 - Z13.31) 09/24/2024 Insomnia due to other mental disorder [...] for TMS Treatment - Plan: - Have special technical operations officer obtain informed consent from patient before initiating TMS treatment. - Find alternative method for obtaining consent if special technical operations officer is unavailable. Patient Education - Plan: [...] to start working. - Prescriptions sent to [facility] pharmacy. Anxiety - Assessment: Patient reports ongoing [...] 01/15/2025 Mild cognitive disorder (ICD-10 - F09) 09/24/2024 Other will do PA for TMS, [...] is obtained 11/05/2024 Other she has had [facility] testing 1. Major Depressive Disorder: - Patient [...] quetiapine 100mg. - Send all prescriptions to [facility] and [facility]. Advance Directives - Plan: - Continue to [...] at bedtime - Send medication refills to [facility] (mail order pharmacy) - Follow-up appointment in [...] bedtime - Refill all current medications through [facility] - Follow-up appointment scheduled [...] 11/18/2024 Next Appt Details Provider Name:Justus jeffers, 11/12/2025 09:00:00 AM, [address], [facility] [address], [place], [address], Insurance Providers Payer Name Payer Address Payer Phone Subscriber Number Group Number Insured Name Patient Relationship to Insured Coverage Start Date Coverage End Date [employer] Medicare Replacemen t/Advantag e - Ppo [address] [place] [phone] [id number] YOLI ESPINOSA Self - patient is the insured Medical [...] the patient visited Shan Stiles MD at [facility] for age-related osteoporosis, essential hypertension, joint swelling [...] pathological fracture. Surgical History Surgery Date(Month/Year) Appendectomy (24715) Removal of gallbladder (76793) Hysterectomy (67099) Sinus surgery
--- OUTSIDE RECORDS SUMMARY | 2025-09-04 15:00 | XMS_ITS | Clinical Summary ---
Author Organization [facility] Address [address] [place] [address] Care Team Providers Care Backup Sawyer Name Role Phone Mora Ross DPM Unavailable [phone] Shan Sampson MD Primary Care Provider [phone] Allergies Active Allergy Reactions Criticality Noted Date [...] (06/28/2021): Added automatically from request for surgery [id number] Acquired hammer toe of right foot 06/28/2021 Overview (06/28/2021): Added automatically from request for surgery [id number] Dislocation of metatarsophal angeal joint of lesser toe of right foot 06/28/2021 Overview (06/28/2021): Added automatically from request for surgery [id number] Pre-op testing 01/13/2021 Spontaneous rupture of extensor tendon of left a nkle 01/05/2021 Overview (01/05/2021): Added automatically from request for surgery [id number] Anterior tibial syndrome of left leg 01/05/2021 Overview (01/05/2021): Added automatically from request for surgery [id number] 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 thy 06/08/2015 Cervicalgia 05/28/2015 Surgical follow-up care 05/01/2012 Osteoarthritis of knee 03/13/2012 Encounters Date Type Department Care Team Description 07/14/2025 10:45 AM CDT Office Visit [facility] Medicine Orthopaedic Surgery [address] [place] [address] [place] [address] Larissa Darling MD Arthritis of right glenohumeral joint (Primary Dx); Arthritis of left glenohumeral joint from Last 3 Months Immunizations Immunization Administration Dates Next Due Influenza, [...] on file Legal Sex Female 12:26 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 Gender Identity Not on file Sexual Orientation [...] Assessment 01/20/2022 01/20/2021 Influenza Vaccine (#1) 2025 , 10/26/2021, 07/07/2020, Additional history exists DTaP/Tdap/Td Vaccine (2 - Td or Tdap) 12/22/2033 12/22/2023 Hepatitis B Screening Completed 11/06/1999 Pneumococcal vaccine 65+ Completed 017, 11/21/2012, 2011 Zoster Vaccine Completed 11/05/2019, 04/2019, 05/08/2015 Medical Devices Implanted Type Area Client Services Account Manager Device Identifier Shelf Expiration Date Model / Serial / Lot K-Wire Implanted:Qty: 1 on 07/09/2021 by Mora Ross DPM at [facility] Right: Second Toe [employer] 11/25/2025 [id number] / / [id number] Cannulated Headless Screw Implanted:Qty: 1 on 07/09/2021 by Mora Ross DPM at [facility] Right: Second Toe [employer] [id number] / / Procedures Procedure Name Priority Date/Time Associated Diagnosis Comments [place] ARTHROCENTESIS ASPIR&/INJ MAJOR JT/BURSA W/O US Routine 07/14/2025 10:45 AM CDT Arthritis of right glenohumeral joint Arthritis of left glenohumeral joint from Last 3 Months Results * WI ARTHROCENTESIS ASPIR&/INJ MAJOR JT/BURSA W/O US (07/14/2025 10:45 AM CDT) Narrative Larissa Darling MD - 07/14/2025 10:45 AM CDT Larissa Darling MD 07/14/2025 10:56 AM Large Joint Injection: bilateral subacromial bursa Performed by: Larissa Darling MD Authorized by: Larissa Darling MD Large Joint Injection/Aspiration: Consent Given by: Patient Site marked: the procedure site was marked Timeout: prior to procedure the correct patient, procedure, and site was verified Verbal consent obtained: Yes Supporting Documentation: Indications: Pain Procedure Details: Location: Shoulder Site: Bilateral subacromial bursa Prep: patient was prepped and draped in usual sterile fashion Needle Size: 21 G Approach: Lateral Medications Right Large Joint Injection: 4 mL BUPivacaine HCl 0.5 % (5 mg/mL); 4 mL BUPivacaine HCl 0.5 % (5 mg/mL); 4 mL lidocaine 10 mg/mL (1 %); 80 mg triamcinolone 40 mg/mL Medications Left Large Joint Injection: 4 mL lidocaine 10 mg/mL (1 %); 80 mg triamcinolone 40 mg/mL Patient tolerance: Patient tolerated the procedure well with no immediate complications us Larissa Darling MD IN CLINIC/BEDSIDE ORD ERABLES Final Result from Last 3 Months Insurance UHC MEDICARE ADVANTAGE [place] AETNA MEDICARE AETNA MEDICARE Advance Directives For more information, please contact: [phone] * Full Code (Latest Code Status on File) Date Activated Date Inactivated Comments 07/09/2021 1:55 PM 07/09/2021 7:32 PM * Full Code Date Activated Date Inactivated Comments 01/13/2021 6:27 PM 01/20/2021 10:33 PM Care Teams Backup Sawyer Relationship Specialty Start Date End Date Shan Sampson MD [address] [place], [place] [id number] PCP - General Internal Medicine 09/20/23 Mora Ross DPM [address] [place] [address] Consulting Physician Foot and Ankle Surg 01/13/21
--- OUTSIDE RECORDS SUMMARY | 2025-09-04 15:00 | XMS_ITS | Clinical Summary ---
Author Organization [facility] [employer] Address [address] [place] [address] Care Team Providers Care Optical Worker Name Role Phone Master Bowles MD Primary Care Provider [phone] Source Comments [facility] Affiliates and Associated Physician Practices is amultiple site organization consisting of ambulatory clinics and hospital sitesin [place], [place], [place] and [place]. This disclosure is being madepursuant to the Care Everywhere program and may not contain all information available regarding this patient. 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 Gender Identity Not on file Sexual Orientation Not on file Last Filed Vital Signs Vital Sign Reading Time Taken Comments Blood Pressure - - Pulse - - Temperature - - Respiratory Rate - - Oxygen Saturation - - Inhaled Oxygen Concentration - - Weight 63.5 kg (140 lb) 03/01/2017 6:22 AM CDT Height 157.5 cm (5' 2) 03/01/2017 6:22 AM CDT Body Mass Index 25.61 03/01/2017 6:22 AM CDT Plan of Treatment Health Maintenance Due Date Last Done Comments BONE DENSITY TESTING 1945 HEPATITIS C SCREENING 08/09/1964 DTAP/TDAP/TD VACCINES (1 - Tdap) 1965 PNEUMOCOCCAL VACCINE 50+ (1 of 1 - PCV) 1996 ZOSTER VACCINE (1 of 2) 1996 Respiratory Syncytial Virus (RSV) Vaccine Pt: or over 60 yrs (1 - 1-dose 75+ series) 2021 DEPRESSION SCREENING 11/06/2024 COVID-19 VACCINE ( - 2023-2 5 season) 2025 INFLUENZA VACCINE (#1) 2025 HEPATITIS B VACCINE Aged Out No longe r eligible based on patient's age to complete this topic HIB VACCINE Aged Out No longer eligi ble based on patient's age to complete this topic HPV VACCINE Aged Out No longer eligi ble based on patient's age to complete this topic MENINGOCOCCAL (Group B) VACC INE SHARED DECISION-MAKING Aged Out No longer eligibl e based on patient's age to complete this topic MENINGOCOCCAL GROUPS A/C/Y/W VACCINE Aged Out No longer eligible b ased on patient's age to complete this topic Insurance [facility] MANAGED MEDICARE ADV MEDICARE PENDING SALE TO [facility] Member Subscriber Plan / Payer (Ef fective for All Dates) Name:Yoli Espinosa Relation to Subscriber:Self Name:YOLI ESPINOSA Payer ID:[id number] (NAIC) Group ID:Not on file Type:[facility] Address: [id number] Care Teams Optical Worker Relationship Specialty Start Date End Date Master Bowles MD [address] [place] [address] PCP - General 02/11/17
== END 2025-09-04 14:27 | disposition home or self-care (01) ==
LOC: ANHFOHIMG 14:28
PROVIDERS: PCP Internal Medicine; Visit Provider Internal Medicine
DX: Z12.31 Encounter for screening mammogram for malignant neoplasm of breast (principal)
CPT/HCPCS: 77063; 77067